=== PATIENT | female | born 1935 | race African-American/Black ===

== ENCOUNTER 2017-06-26 12:40 | Emergency (ER) | payer OTHER, MEDICAID ==
[2017-06-26] MEDS ORDERED: Diatrizoate Meglumine/Diatri 30 mL Sol PO ONE (12:41)
--- NOTE | 2017-06-26 12:52 | ED Physician Chart ---
ED Chief Complaint/HPI - Patient Information Date Seen:: 06/26/17 Time Seen:: 12:52 Chief Complaint:: J tube occlusion History of Present Illness:: 82 yo female was brought from SNF to ER for clotted J-tube. The patient was s/p cranitomy for non-ruptured cerebral aneurysm. ED Review of Systems - Review of Systems General/Constitutional: Fever (low grade) Skin: No bruising Head: No headache Eyes: No pain ENT: No nasal drainage Neck: No neck pain Cardio Vascular: No chest pain GI: Other (occluded J-tube) Musculoskeletal: No bone or joint pain Neurological: Weakness ED Past Medical History - Past Medical History Past Medical History: CVA/TIA (cerebral aneusysm), Other (Intracranial hemorrhage, right internal carotid artery aneurysm, encephylopathy, dysphagia, resp failure) Social History: Non Smoker, No Alcohol, No Drug Use Surgical History: other (tracheostomy, gastrostomy, [employer] shunt) Family Medical History - Family Member Mother History Unknown: Yes ED Physical Exam - Physical Examination Other Gen/Cons comments:: obtunded Other Head comments:: wearing helmet Skin: No ecchymosis ENMT: Nasal exam nl Neck: No nuchal rigidity Other Respiratory comments:: Thick secretion from the tracheostomy opening Cardio Vascular: RRR, No murmur, gallop, rubs, NL S1 S2 GI: Nondistended Other GI comments:: J tube clotted Other Extremities comments:: Spastic, decerebrate rigidity Other Neuro/Psych comments:: Barbinski upward ED Labs/Radiology/EKG Results - Radiology Results Results: Upper GI series: intraluminal confirmation of the J-tube ED Assessment - Assessment General Assessment: Clotted J-tube causing J-tube malfunction Assessment/Comments:: Cleaned the J-tube with saline and removed the clotted feed content. The J-tube became patent again Upper GI series confirmed the patency and intraluminal position of the J-tube D/c patient back to SNF F/u PCP ED Septic Shock - . Is Septic Shock (SBP<90, OR Lactate>4 mmol\L) present?: No ED Reassessment (Disposition) - Reassessment Reassessment Condition:: Improved - Patient Disposition Discharge/Transfer:: Alf Care - [facility] ED Discharge Plan - Patient Disposition Admit/Discharge/Transfer: Discharge/Transfered to SNF Instructions: Care of a Feeding Tube, [id number], Feeding Tube Use
--- NOTE | 2017-06-26 13:53 | Diagnostic Imaging Report ---
Upper GI with Gastrografin HISTORY: Feeding tube confirmation COMPARISON: None FINDINGS: Insurance Job Titles view demonstrates copious stool throughout the colon. Areas of fecal impaction are noted. Percutaneous feeding catheter is noted. Tubing material is seen along the right hemiabdomen possibly a shunt catheter. The second image demonstrates contrast opacification of the stomach and small bowel loops. IMPRESSION: Intraluminal confirmation of patient's percutaneous feeding tube. Please correlate clinically if this is a G or J-tube.
== END 2017-06-26 13:55 ==
LOC: ER 12:40
DX: K94.23 Gastrostomy malfunction (principal); Z86.73 Personal history of transient ischemic attack (TIA), and cerebral infarction without residual deficits
CPT/HCPCS: 99284; 43760; 74240; Z7610; Z7502

== ENCOUNTER 2017-10-13 03:45 | Inpatient (IN) | payer OTHER, MEDICAID ==
--- NOTE | 2017-10-13 04:25 | ED Physician Chart ---
ED Chief Complaint/HPI - Patient Information Date Seen:: 10/13/17 Time Seen:: 04:25 Chief Complaint:: non functional g= History of Present Illness:: 82 yr old female from [facility] with g-tube malfunction Allergies:: Allergies Allergy/AdvReac Type Severity Reaction Status Date / Time No Known Allergies Allergy Verified 10/13/17 03:55 Vitals:: Vital Signs - 8 hr 10/13/17 03:59 HR 86 O2 Sat % 100 Historian:: EMS, Medical Records ED Review of Systems - Review of Systems General/Constitutional: Fever (unable sec to obtundation), No fever (unable to get secondary to obtundation), No chills, No weight loss, No weakness, No diaphoresis, No edema, No loss of appetite Skin: No skin lesions, No rash, No bruising Head: No headache, No light-headedness Eyes: No loss of vision, No pain, No diplopia ENT: No earache, No nasal drainage, No sore throat, No tinnitus Neck: No neck pain, No swelling, No thyromegaly, No stiffness, No mass noted Cardio Vascular: No chest pain, No palpitations, No PND, No orthopnea, No edema Pulmonary: No SOB, No cough, No sputum, No wheezing GI: No nausea, No vomiting, No diarrhea, No pain, No melena, No hematochezia, No constipation, No hematemesis G/U: No dysuria, No frequency, No hematuria Musculoskeletal: No bone or joint pain, No back pain, No muscle pain Endocrine: No polyuria, No polydipsia Psychiatric: No prior psych history, No depression, No anxiety, No suicidal ideation Hematopoietic: No bruising, No lymphadenopathy Allergic/Immuno: No urticaria, No angioedema Neurological: No syncope, No focal symptoms, No weakness, No paresthesia, No headache, No seizure, No dizziness, No confusion, No vertigo ED Past Medical History - Past Medical History Past Medical History: CVA/TIA, ESRD, Dementia Surgical History: PEG/GTube, other (trach) Family Medical History - Family Member Mother History Unknown: Yes ED Physical Exam - Physical Examination Head: Atraumatic Eyes: Lids, conjuctiva normal Skin: Nl inspection, No rash ENMT: External ears, nose nl Respiratory: Nl effort/Exclusion, Clear to Auscultation Cardio Vascular: RRR, No murmur, gallop, rubs GI: No tenderness/rebounding/guarding Extremities: No tenderness or effusion Misc: Normal back ED Assessment - Assessment General Assessment: jtube malfunction ED Septic Shock - . Is Septic Shock (SBP<90, OR Lactate>4 mmol\L) present?: No - <6hrs of presentation: Vital Signs: Vital Signs - 8 hr 10/13/17 03:59 HR 86 O2 Sat % 100 ED Reassessment (Disposition) - Patient Disposition Discharge/Transfer:: Acute Care w/in this hosp Admitted to:: Telemetry
[2017-10-13 05:03] LABS: % BASOPHILS 1.7 % (0.0-2.0); % LYMPHOCYTES 11.5 % (20.0-50.0); % MONOCYTES 5.2 % (2.0-10.0); % NEUTROPHILS 80.6 % (40.0-80.0); ALB/GLOB RATIO 0.5 (1.0-1.8); ALBUMIN 2.6 gm/dL (3.7-5.3); ALKALINE PHOSPHATASE 66 U/L (34-104); ANION GAP 6.8 (7.0-16.0); BASOPHILE ABSOLUTE 0.2 Th/cumm (0-0.2); BILIRUBIN,TOTAL 0.5 mg/dL (0.3-1.0); BUN - UREA NITROGEN 11 mg/dL (7-25); CALCIUM SERUM 8.8 mg/dL (8.6-10.3); CARBON DIOXIDE 37.1 mEq/L (21.0-31.0); CHLORIDE 89 mEq/L (98-107); CREATININE - SERUM 0.4 mg/dL (0.6-1.2); EOSINOPHILE ABSOLUTE 0.1 Th/cmm (0.1-0.4); GLUCOSE 102 mg/dL (70-105); HEMATOCRIT 24.7 % (41.0-60); LYMPHOCYTE ABSOLUTE 1.2 Th/cmm (1.5-3.0); MEAN CELL VOLUME 78.9 fl (81-100); MEAN CORPUSCULAR HEMOGLOBIN 25.6 pg (27.0-31.0); MEAN CORPUSCULAR HGB CONC 32.5 pg (28.0-36.0); MEAN PLATELET VOLUME 7.7 fl; MONOCYTE ABSOLUTE 0.5 Th/cmm (0.3-1.0); NEUTROPHILE ABSOLUTE 8.1 Th/cmm (1.8-8.0); PLATELET COUNT 499 Th/cmm (150-400); POTASSIUM SERUM 3.9 mEq/L (3.5-5.1); RED BLOOD COUNT 3.14 Mil/cmm (3.80-5.20); RED CELL DISTRIBUTION WIDTH 20.9 % (11.5-20.0); SGOT 14 U/L (13-39); SGPT/ALT 10 U/L (7-52); SODIUM SERUM 129 mEq/L (136-145); TOTAL PROTEIN,SERUM 7.8 gm/dL (6.0-8.3); WHITE BLOOD COUNT 10.1 Th/cmm (4.8-10.8)
[2017-10-13] MEDS ORDERED: Diatrizoate Meglumine/Diatri 30 mL Sol ONE (05:06)
[2017-10-13] MEDS ORDERED: Diatrizoate Meglumine/Diatri 30 mL Sol PO ONE ×2 (05:06→14:10)
[2017-10-13 06:26] VITALS: BP 177/93
--- NOTE | 2017-10-13 07:48 | Diagnostic Imaging Report ---
CHEST X-RAY: AP view INDICATION: Shortness of breath COMPARISON: None FINDINGS: Tracheostomy tube is noted. There appears to be a shunt catheter. Diffuse pulmonary infiltrates are seen with small left effusion. Right lower hemithorax linear density is noted. No pneumothorax. Heart size is borderline prominent. Atherosclerosis is noted. Degenerative changes of the spine are noted. IMPRESSION: Diffuse pulmonary infiltrates with small left effusion. Findings may be due to CHF and pneumonia. Clinical correlation recommended. Right lower hemithorax linear density. This may represent external material overlying the patient. A right chest tube would be less likely but cannot be excluded. Please correlate with clinical findings.
--- NOTE | 2017-10-13 07:50 | Diagnostic Imaging Report ---
KUB single view HISTORY: Feeding tube malfunction COMPARISON: Chest x-ray the same day FINDINGS: Single KUB without priors demonstrates contrast opacification of the stomach. Distal fecal impaction is noted. The remaining bowel gas pattern is nonspecific. There appears to be shunt catheter with tip terminating along the left upper quadrant. Degenerative changes of the spine and pelvis are noted. IMPRESSION: Feeding tube in the stomach. Note exam is limited as only a single limited view was obtained. Distal fecal impaction. The remaining bowel gas pattern is nonspecific Shunt catheter noted.
[2017-10-13] MEDS ORDERED: Dextrose 50% 50 mL Abboject IVP PRN (08:05)
[2017-10-13] MEDS ORDERED: Morphine Sulfate 2 mg/mL 1mL Syr IM PRN ×2 (09:01→09:03)
[2017-10-13] MEDS ORDERED: Sodium Chloride 0.9% 1,000 ML IV ONE (09:33)
[2017-10-13] MEDS: Morphine Sulfate 4 mg/mL 1mL Syr IVP PRN ×2 (10:10→21:50)
[2017-10-13] MEDS: Sodium Chloride 0.9% 1,000 ML IV SCH (10:35)
[2017-10-13] MEDS ORDERED: Albuterol Nebulizer 2.5mg/3mL HHN PRN (13:46)
--- NOTE | 2017-10-13 14:56 | Consultation ---
Consult Note - Consult Note Service Date: 10/13/17 Referring Physician: Doug Soria Consult Note: PHYSICIAN Consultation Note: Date of Admission: 10/13/17 Purpose of Consultation: Pneumonia. Chief Complaint: Patient ELOY GONZALES was admitted to location Intensive Care Unit with HYPONATREMIA,J TUBE PLACEMENT. History of Present Illness: 82 -year-old with a past medical history of intracranial hemorrhage, right-sided craniotomy and resection of the right side of the brain, removal of scalp bone of right-sided, vent dependent respiratory failure, vegetative state, admitted to the hospital for hyponatremia and G-tube placement. J-tube was placed by IR. On initial evaluation, her temperature is 100.1F and WBC count was 10,100. Patient was found to have heavy yellow thick endotracheal secretion. Chest x-ray showed pneumonia. Vancomycin and Zosyn was started and ID consult was called for further antibiotic management patient is unable to give any history. Past Medical History: CVA/TIA, Dementia, G-tube placement, tracheostomy. Vent dependent respiratory failure. Allergies Allergy/AdvReac Type Severity Reaction Status Date / Time No Known Allergies Allergy Verified 10/13/17 03:55 Vital Signs Temp 97.9 F 10/13/17 13:00 Pulse 81 10/13/17 13:44 Resp 22 10/13/17 13:00 BP 111/57 10/13/17 13:00 Pulse Ox 100 10/13/17 14:00 Intake & Output 10/12/17 10/13/17 10/13/17 18:59 06:59 18:59 Intake Total 300 Balance 300 Weight (lbs) 50.349 kg Intake: Intake, IV Amount 300 Piperacillin Sodium/ 50 Tazobact 3.375 gm In Sodium Chloride 0.9% 50 ml @ 100 mls/hr IV Q8HR MYLES Rx#:[id number] Vancomycin HCl 1 gm In 250 Sodium Chloride 0.9% 250 ml @ 165 mls/hr IV Q24H MYLES Rx#:[id number] Other: Weight Source Estimated Laboratory Results - last 24 hr 10/13/17 10/13/17 10/13/17 04:35 04:35 09:35 WBC 10.1 RBC 3.14 L Hgb 8.0 L Hct 24.7 L MCV 78.9 L MCH 25.6 L MCHC Differential 32.5 RDW 20.9 H Plt Count 499 H MPV 7.7 Neutrophils % 80.6 H Lymphocytes % 11.5 L Monocytes % 5.2 Eosinophils % 1.0 Basophils % 1.7 Sodium 129 L Potassium 3.9 Chloride 89 L Carbon Dioxide 37.1 H Anion Gap 6.8 L BUN 11 Creatinine 0.4 L Est GFR ( Amer) TNP Est GFR (Non-Af Amer) TNP BUN/Creatinine Ratio 27.5 Glucose 102 Whole Bld Lactic Acid Calcium 8.8 Total Bilirubin 0.5 AST 14 ALT 10 Alkaline Phosphatase 66 Total Protein 7.8 Albumin 2.6 L Globulin 5.2 Albumin/Globulin Ratio 0.5 L Blood Type O POSITIVE Antibody Screen NEGATIVE Crossmatch See Detail 10/13/17 09:35 WBC RBC Hgb Hct MCV MCH MCHC Differential RDW Plt Count MPV Neutrophils % Lymphocytes % Monocytes % Eosinophils % Basophils % Sodium Potassium Chloride Carbon Dioxide Anion Gap BUN Creatinine Est GFR ( Amer) Est GFR (Non-Af Amer) BUN/Creatinine Ratio Glucose Whole Bld Lactic Acid 1.49 Calcium Total Bilirubin AST ALT Alkaline Phosphatase Total Protein Albumin Globulin Albumin/Globulin Ratio Blood Type Antibody Screen Crossmatch Home Medication Medication Instructions Recorded Type Acetaminophen [Tylenol] 650 mg GT Q4HR PRN 06/26/17 History Albuterol Nebulizer 2.5mg/3mL 2.5 mg HHN Q3H PRN 06/26/17 History [Albuterol Neb UD*] Albuterol Nebulizer 2.5mg/3mL 2.5 mg IH Q6HR 06/26/17 History [Albuterol Neb UD*] Amino Acids/Protein Hydrolys 30 ml GT DAILY 06/26/17 History [Pro-Stat Sugar Free Awc 887 ml] Chlorhexidine Gluconate 0.12% 15 ml MM BID 06/26/17 History [Peridex] Clonidine HCl 0.2 mg GT Q4H PRN 06/26/17 History Ferrous Sulfate 7.5 ml GT DAILY 06/26/17 History Levetiracetam 250 mg GT Q12H 06/26/17 History Lorazepam [Ativan] 0.5 mg GT Q6H PRN 06/26/17 History Morphine Sulfate 15 mg GT Q6H PRN 06/26/17 History Multivit-Minerals/Ferrous Gluc 30 mg GT DAILY 10/13/17 History [Multivitamin-Mineral Liquid] Vit C/Ascorbate Ca/Ascorb Sod 5 ml PO DAILY 10/13/17 History [Vitamin C 500 mg/15 ml Liquid] Current Medications Generic Name Dose Route Start Last Admin Trade Name Freq PRN Reason Stop Dose Admin Acetaminophen 650 mg 10/13/17 13:46 Tylenol 650mg/20.3ml Suspension GT 12/12/17 13:45 Q4HR PRN Mild Pain or Fever >101 Albuterol Sulfate 2.5 mg 10/13/17 13:46 Albuterol 2.5mg/3ml Neb Ud N 12/12/17 13:45 Q3H PRN SOB/WHEEZING/RESPIRATORY DISTR Albuterol Sulfate 2.5 mg 10/13/17 19:00 [facility] 18:59 Q6HRT MYLES Ascorbic Acid 500 mg 10/14/17 09:00 Vitamin C PO 12/13/17 08:59 DAILY MYLES Chlorhexidine Gluconate 15 ml 10/13/17 17:00 Peridex MM 12/12/17 16:59 BID MYLES Dextrose 50 ml 10/13/17 08:05 D50w IVP 12/12/17 08:04 PRN PRN B.S > 60 MG/DL Enalaprilat 1.25 mg 10/13/17 08:59 10/13/17 09:30 Vasotec IVP 12/12/17 08:58 1.25 mg Q4HR PRN Administration SBP ABOVE 160 MMHG Ferrous Sulfate 450 mg 10/14/17 09:00 Iron GT 12/13/17 08:59 DAILY MYLES Sodium Chloride 1,000 mls @ 125 mls/hr 10/13/17 08:00 10/13/17 10:35 Nacl 0.9% IV 12/12/17 07:59 125 mls/hr .Q8H MYLES Administration Vancomycin HCl 1 gm/ Sodium 250 mls @ 165 mls/hr 10/13/17 08:00 10/13/17 10: 20 Chloride IV 12/12/17 07:59 Infused Q24H MYLES Infusion Piperacillin Sod/Tazobactam 50 mls @ 100 mls/hr 10/13/17 08:02 10/13/17 12:19 Sod 3.375 gm/ Sodium Chloride IV 12/12/17 08:01 100 mls/hr Q8HR MYLES Administration Levetiracetam 250 mg 10/13/17 14:00 Keppra PO 12/12/17 13:59 Q12H MYLES Lorazepam 0.5 mg 10/13/17 13:46 Ativan GT 12/12/17 13:45 Q6H PRN Anxiety Protocol Miscellaneous 1 ea 10/13/17 08:01 Vancomycin Iv Per Pharmacy 12/12/17 08:00 PRN PRN PROTOCOL Morphine Sulfate 1 mg 10/13/17 09:35 Morphine IVP 12/12/17 09:34 Q4HR PRN Pain (Moderate) Morphine Sulfate 2 mg 10/13/17 09:36 10/13/17 10:10 Morphine IVP 12/12/17 09:35 2 mg Q4HR PRN Administration Pain (Severe) Morphine Sulfate 15 mg 10/13/17 13:46 Morphine Ir GT 12/12/17 13:45 Q6H PRN MOD/SEVERE PAIN Review of Systems: A 12 point ROS was reviewed with the pertinent positive and negatives noted in the HPI. Social History Smoking Status Never smoker Drug Use No Alcohol Use No Family Medical History Family Medical History Start: 10/13/17 05: 27 Freq: ONCE Status: Active Protocol: Document 10/13/17 05:27 [email or web address] (Rec: 10/13/17 07:34 [email or web address] [id number]) Family Medical History Mother History Unknown Yes Physical Exam: General: Cachectic not in acute distress on ventilator. HEENT: Head: Right-sided craniectomy and abscess of the scalp on. Oral cavity: Moist, pink tongue. Eyes: Pallor. Neck: Trach site is clear Cardio: S1 and S2 within normal metabolism. Respiratory: Vesicular breath sound. Abdominal: Soft, nontender nondistended bowel sounds present G-tube site is clear. Genital/Urinary: Deferred. Extremities: No sinus no clubbing no edema. Severe flexion contracture. Neurological: Unresponsive. Assessment: 1. Pneumonia. 2. G-tube malfunction. 3. New J-tube placement. 4. Vent dependent respiratory failure. 5. Vegetative status. Plan: Continue vancomycin and Zosyn. Sepsis workup. Thank you Dr. Soria for involving me in taking care of this patient Signed, Earl Guzman M.D. [id number]
--- NOTE | 2017-10-13 15:03 | Diagnostic Imaging Report ---
Upper GI with Gastrografin HISTORY: G-tube confirmation COMPARISON: KUB on 10/13/2017 FINDINGS: Log Cut Off Sawyer view demonstrates oral contrast from previous procedures throughout the bowel. Shunt catheter is seen. A percutaneous feeding tube is noted. The second image demonstrates contrast opacification of the stomach and small bowel loops. IMPRESSION: Intraluminal confirmation of patient's percutaneous gastric feeding tube.
[2017-10-13] MEDS ORDERED: Chlorhexidine Gluconate 0.12% 15mL Mouthwash MM SCH (17:00)
[2017-10-13] MEDS: Albuterol Nebulizer 2.5mg/3mL HHN SCH ×2 (19:00→22:04)
[2017-10-13] MEDS ORDERED: Albuterol Nebulizer 2.5mg/3mL HHN SCH (19:00)
--- NOTE | 2017-10-13 20:34 | Operative Report ---
DATE OF SURGERY: 10/13/2017 PROCEDURE: Change of G-tube. INDICATION FOR PROCEDURE: Malfunctioning G-tube. PREOPERATIVE DIAGNOSIS: Malfunctioning G-tube. POSTOPERATIVE DIAGNOSES: Malfunctioning G-tube status post change. DESCRIPTION OF PROCEDURE: The patient was lying on his back. The old Zaragoza catheter was deflated, pulled out of the patient's abdomen and new replacement one size 18 was tested and tried to insert it, again it would not go easily, so then the Zaragoza catheter was inserted again, and then pulled out and then a new one was inserted with a little bit difficulty. Balloon was inflated, secured in place. RECOMMENDATIONS: Check KUB with Gastrografin and then start feeding. Thank you, Dr. Soria, for allowing me to participate in the care of the patient. If you have any further questions, please let me know. JOB# [id number]
[2017-10-13] MEDS: Chlorhexidine Gluconate 0.12% 15mL Mouthwash MM SCH (21:04)
--- NOTE | 2017-10-13 22:13 | History and Physical ---
History of Present Illness - HPI Chief Complaint: gt malfunction . HPI: 82 -year-old female who is a resident of [facility] admitted to the ICU. Subacute charge nurse noted patient gt was not functioning. Patient had a xray in ER and was found to have pneumonia. Patient is nonverbal. Vital Signs: Last Vital Signs Temp 98.2 F 10/13/17 21:00 Pulse 70 10/13/17 22:04 Resp 33 10/13/17 21:00 BP 178/90 10/13/17 21:00 Pulse Ox 99 10/13/17 22:04 Past Medical History Other History: cva, respiratory failure - Past Surgical History Past Surgical History: Other ( intracranial hemorrhage, right-sided craniotomy and resection of the right side of the brain, removal of scalp bone of right) Family Medical History - Family Member Mother History Unknown: Yes Social History Smoke: No Alcohol: None Drugs: None Lives: [facility] - Medications Home Medications: Home Medication Medication Instructions Recorded Type Acetaminophen [Tylenol] 650 mg GT Q4HR PRN 06/26/17 History Albuterol Nebulizer 2.5mg/3mL 2.5 mg HHN Q3H PRN 06/26/17 History [Albuterol Neb UD*] Albuterol Nebulizer 2.5mg/3mL 2.5 mg IH Q6HR 06/26/17 History [Albuterol Neb UD*] Amino Acids/Protein Hydrolys 30 ml GT DAILY 06/26/17 History [Pro-Stat Sugar Free Awc 887 ml] Chlorhexidine Gluconate 0.12% 15 ml MM BID 06/26/17 History [Peridex] Clonidine HCl 0.2 mg GT Q4H PRN 06/26/17 History Ferrous Sulfate 7.5 ml GT DAILY 06/26/17 History Levetiracetam 250 mg GT Q12H 06/26/17 History Lorazepam [Ativan] 0.5 mg GT Q6H PRN 06/26/17 History Morphine Sulfate 15 mg GT Q6H PRN 06/26/17 History Multivit-Minerals/Ferrous Gluc 30 mg GT DAILY 10/13/17 History [Multivitamin-Mineral Liquid] Vit C/Ascorbate Ca/Ascorb Sod 5 ml PO DAILY 10/13/17 History [Vitamin C 500 mg/15 ml Liquid] - Allergies Allergies/Adverse Reactions: Allergies Allergy/AdvReac Type Severity Reaction Status Date / Time No Known Allergies Allergy Verified 10/13/17 03:55 Review of Systems - Review of Systems Constitutional: Report: No Significant Eyes: Report: No Significant Respiratory: Report: Cough Cardiovascular: Report: No Significant Neurological: Report: Weakness Physical Exam - Physical Exam HEENT: Report: Ears Nose Throat within normal limits Neck: Report: Tracheostomy site noted to be clean Cardiovascular Systems: Report: Regular, Rate and Rhythm Respiratory: Report: Rhonchi Abdomen: Report: Non-tender to palpation Skin: Report: Warm, Dry Neuro/Psych: Report: Weakness or sensory loss noted. - Lab Results All Lab Results last 24 hours: Laboratory Results - last 24 hr 10/13/17 10/13/17 10/13/17 04:35 04:35 09:35 WBC 10.1 RBC 3.14 L Hgb 8.0 L Hct 24.7 L MCV 78.9 L MCH 25.6 L MCHC Differential 32.5 RDW 20.9 H Plt Count 499 H MPV 7.7 Neutrophils % 80.6 H Lymphocytes % 11.5 L Monocytes % 5.2 Eosinophils % 1.0 Basophils % 1.7 Sodium 129 L Potassium 3.9 Chloride 89 L Carbon Dioxide 37.1 H Anion Gap 6.8 L BUN 11 Creatinine 0.4 L Est GFR ( Amer) TNP Est GFR (Non-Af Amer) TNP BUN/Creatinine Ratio 27.5 Glucose 102 POC Glucose Whole Bld Lactic Acid Calcium 8.8 Total Bilirubin 0.5 AST 14 ALT 10 Alkaline Phosphatase 66 Total Protein 7.8 Albumin 2.6 L Globulin 5.2 Albumin/Globulin Ratio 0.5 L Blood Type O POSITIVE Antibody Screen NEGATIVE Crossmatch See Detail 10/13/17 10/13/17 09:35 09:54 WBC RBC Hgb Hct MCV MCH MCHC Differential RDW Plt Count MPV Neutrophils % Lymphocytes % Monocytes % Eosinophils % Basophils % Sodium Potassium Chloride Carbon Dioxide Anion Gap BUN Creatinine Est GFR ( Amer) Est GFR (Non-Af Amer) BUN/Creatinine Ratio Glucose POC Glucose 106 H Whole Bld Lactic Acid 1.49 Calcium Total Bilirubin AST ALT Alkaline Phosphatase Total Protein Albumin Globulin Albumin/Globulin Ratio Blood Type Antibody Screen Crossmatch - Assessment Assessment: gt malfunction hx cvs vdrf respiratory failure pvs - Plan Plan: gi consult sputum culture id consult vent support pulmo consult as per order sheet
[2017-10-14] MEDS: Sodium Chloride 0.9% 1,000 ML IV SCH ×4 (01:56→20:46)
[2017-10-14] MEDS: Albuterol Nebulizer 2.5mg/3mL HHN SCH ×6 (02:01→23:00)
[2017-10-14 04:41] LABS: LYMPHOCYTE ABSOLUTE 1.8 Th/cmm (1.5-3.0); MONOCYTE ABSOLUTE 0.7 Th/cmm (0.3-1.0)
[2017-10-14 05:02] LABS: % BASOPHILS 0.5 % (0.0-2.0); % EOSINOPHILS 0.5 % (0.0-5.0); % MONOCYTES 7.3 % (2.0-10.0); % NEUTROPHILS 73.7 % (40.0-80.0); HEMATOCRIT 24.3 % (41.0-60); MEAN CELL VOLUME 79.6 fl (81-100); MEAN CORPUSCULAR HEMOGLOBIN 25.9 pg (27.0-31.0); MEAN CORPUSCULAR HGB CONC 32.5 pg (28.0-36.0); MEAN PLATELET VOLUME 7.6 fl; NEUTROPHILE ABSOLUTE 7.3 Th/cmm (1.8-8.0); PLATELET COUNT 541 Th/cmm (150-400); RED BLOOD COUNT 3.05 Mil/cmm (3.80-5.20); RED CELL DISTRIBUTION WIDTH 20.7 % (11.5-20.0); WHITE BLOOD COUNT 9.8 Th/cmm (4.8-10.8)
[2017-10-14 05:08] LABS: ALB/GLOB RATIO 0.5 (1.0-1.8); ALBUMIN 2.5 gm/dL (3.7-5.3); ALKALINE PHOSPHATASE 91 U/L (34-104); ANION GAP 10.8 (7.0-16.0); BILIRUBIN,TOTAL 0.6 mg/dL (0.3-1.0); BUN - UREA NITROGEN 15 mg/dL (7-25); CALCIUM SERUM 8.5 mg/dL (8.6-10.3); CARBON DIOXIDE 28.4 mEq/L (21.0-31.0); CHLORIDE 95 mEq/L (98-107); CREATININE - SERUM 0.6 mg/dL (0.6-1.2); GLUCOSE 111 mg/dL (70-105); POTASSIUM SERUM 3.2 mEq/L (3.5-5.1); SGOT 15 U/L (13-39); SGPT/ALT 9 U/L (7-52); SODIUM SERUM 131 mEq/L (136-145); TOTAL PROTEIN,SERUM 7.7 gm/dL (6.0-8.3)
[2017-10-14 05:09] LABS: HEMOGLOBIN 7.9 gm/dL (12-16)
[2017-10-14] MEDS: Chlorhexidine Gluconate 0.12% 15mL Mouthwash MM SCH ×2 (08:00→20:47)
--- NOTE | 2017-10-14 08:24 | Diagnostic Imaging Report ---
Portable chest x-ray HISTORY: Shortness of breath Compared with the prior exam of October 13, 2017, hazy infiltrate remains the left lung. Generalized accentuation of interstitial markings in the right lung. Density seen in the left lower hemithorax with obscuration of the left hemidiaphragm. Changes suggest a pleural effusion. IMPRESSION: 1. No significant change in the pulmonary status since October 13, 2017.
[2017-10-14] MEDS ORDERED: Non-Formulary Item 1 EA (Amino Acids/Protein Hydrolys [Pro-Stat Awc Liquid] 30 ML) GT SCH (09:00)
--- NOTE | 2017-10-14 09:19 | Infectious Disease Prog Note ---
Infectious Disease Subjective - Review of Systems Service Date: 10/14/17 Subjective: There is no new change, no fever. Infectious Disease Objective - Results Result Diagrams: 10/14/17 04:20 10/14/17 04:20 Recent Labs: Laboratory Last Values WBC 9.8 Th/cmm (4.8-10.8) 10/14/17 04:20 RBC 3.05 Mil/cmm (3.80-5.20) L 10/14/17 04:20 Hgb 7.9 gm/dL (12-16) L* 10/14/17 04:20 Hct 24.3 % (41.0-60) L 10/14/17 04:20 MCV 79.6 fl (81-100) L 10/14/17 04:20 MCH 25.9 pg (27.0-31.0) L 10/14/17 04:20 MCHC Differential 32.5 pg (28.0-36.0) 10/14/17 04:20 RDW 20.7 % (11.5-20.0) H 10/14/17 04:20 Plt Count 541 Th/cmm (150-400) H 10/14/17 04:20 MPV 7.6 fl 10/14/17 04:20 Neutrophils % 73.7 % (40.0-80.0) 10/14/17 04:20 Lymphocytes % 18.0 % (20.0-50.0) L 10/14/17 04:20 Monocytes % 7.3 % (2.0-10.0) 10/14/17 04:20 Eosinophils % 0.5 % (0.0-5.0) 10/14/17 04:20 Basophils % 0.5 % (0.0-2.0) 10/14/17 04:20 Sodium 131 mEq/L (136-145) L 10/14/17 04:20 Potassium 3.2 mEq/L (3.5-5.1) L 10/14/17 04:20 Chloride 95 mEq/L (98-107) L 10/14/17 04:20 Carbon Dioxide 28.4 mEq/L (21.0-31.0) 10/14/17 04:20 Anion Gap 10.8 (7.0-16.0) 10/14/17 04:20 BUN 15 mg/dL (7-25) 10/14/17 04:20 Creatinine 0.6 mg/dL (0.6-1.2) 10/14/17 04:20 Est GFR ( Amer) TNP 10/14/17 04:20 Est GFR (Non-Af Amer) TNP 10/14/17 04:20 BUN/Creatinine Ratio 25.0 10/14/17 04:20 Glucose 111 mg/dL (70-105) H 10/14/17 04:20 POC Glucose 106 MG/DL (70 - 105) H 10/13/17 09:54 Whole Bld Lactic Acid 1.49 mmol/L (0.60-1.99) 10/13/17 09:35 Calcium 8.5 mg/dL (8.6-10.3) L 10/14/17 04:20 Total Bilirubin 0.6 mg/dL (0.3-1.0) 10/14/17 04:20 AST 15 U/L (13-39) 10/14/17 04:20 ALT 9 U/L (7-52) 10/14/17 04:20 Alkaline Phosphatase 91 U/L (34-104) 10/14/17 04:20 Total Protein 7.7 gm/dL (6.0-8.3) 10/14/17 04:20 Albumin 2.5 gm/dL (3.7-5.3) L 10/14/17 04:20 Globulin 5.2 gm/dL 10/14/17 04:20 Albumin/Globulin Ratio 0.5 (1.0-1.8) L 10/14/17 04:20 Blood Type O POSITIVE 10/13/17 09:35 Antibody Screen NEGATIVE 10/13/17 09:35 Crossmatch See Detail 10/13/17 09:35 - Physical Exam Vitals and I&O: Vital Signs Temp 98.5 F 10/14/17 07:00 Pulse 99 10/14/17 07:51 Resp 28 10/14/17 07:00 BP 154/81 10/14/17 07:00 Pulse Ox 100 10/14/17 07:51 Intake & Output 10/13/17 10/14/17 10/14/17 18:59 06:59 18:59 Intake Total 1650 1602.083 Balance 1650 1602.083 Weight (lbs) 50.576 kg 50.802 kg Intake: Intake, IV Amount 1350 1102.083 Piperacillin Sodium/ 100 100 Tazobact 3.375 gm In Sodium Chloride 0.9% 50 ml @ 100 mls/hr IV Q8HR [facility] Rx#:[id number] Sodium Chloride 0.9% 1, 1002.083 000 ml @ 125 mls/hr IV . Q8H [facility] Rx#:[id number] Vancomycin HCl 1 gm In 250 Sodium Chloride 0.9% 250 ml @ 165 mls/hr IV Q24H [facility] Rx#:[id number] Tube Feeding 50 400 Other 250 100 Other: # Voids 4 3 # Bowel Movements 0 Weight Source Bedscale Bedscale Active Medications: Current Medications Acetaminophen (Tylenol 650mg/20.3ml Suspension) 650 mg GT Q4HR PRN PRN Reason: Mild Pain or Fever >101 Stop: 12/12/17 13:45 Last Admin: 10/13/17 17:59 Dose: 650 mg Albuterol Sulfate (Albuterol 2.5mg/3ml Neb Ud) 2.5 mg HHN Q3H PRN PRN Reason: SOB/WHEEZING/RESPIRATORY DISTR Stop: 12/12/17 13:45 Albuterol Sulfate (Albuterol 2.5mg/3ml Neb Ud) 2.5 mg HHN Q4HRT [facility] Stop: 12/12/17 18:59 Last Admin: 10/14/17 07:49 Dose: 2.5 mg Ascorbic Acid (Vitamin C) 500 mg PO DAILY [facility] Stop: 12/13/17 08:59 Chlorhexidine Gluconate (Peridex) 15 ml MM 0800,1999 [facility] Stop: 12/12/17 19:59 Last Admin: 10/13/17 21:04 Dose: 15 ml Dextrose (D50w) 50 ml IVP PRN PRN PRN Reason: B.S > 60 MG/DL Stop: 12/12/17 08:04 Enalaprilat (Vasotec) 1.25 mg IVP Q4HR PRN PRN Reason: SBP ABOVE 160 MMHG Stop: 12/12/17 08:58 Last Admin: 10/13/17 09:30 Dose: 1.25 mg Ferrous Sulfate (Iron) 450 mg GT DAILY [facility] Stop: 12/13/17 08:59 Sodium Chloride (Nacl 0.9%) 1,000 mls @ 125 mls/hr IV .Q8H [facility] Stop: 12/12/17 07:59 Last Admin: 10/14/17 01:57 Dose: 125 mls/hr Vancomycin HCl 1 gm/ Sodium (Chloride) 250 mls @ 165 mls/hr IV Q24H [facility] Stop: 12/12/17 07:59 Last Infusion: 10/13/17 10:20 Dose: Infused Piperacillin Sod/Tazobactam (Sod 3.375 gm/ Sodium Chloride) 50 mls @ 100 mls/ hr IV Q8HR [facility] Stop: 12/12/17 08:01 Last Infusion: 10/14/17 06:00 Dose: Infused Potassium Chloride (Potassium Chloride) 20 meq in 100 mls @ 50 mls/hr IV Q2H [facility] Stop: 10/14/17 11:59 Potassium Chloride (Potassium Chloride) 20 meq in 100 mls @ 50 mls/hr IV Q2H [facility] Stop: 10/14/17 12:29 Levetiracetam (Keppra) 250 mg PO Q12H [facility] Stop: 12/12/17 13:59 Last Admin: 10/14/17 01:57 Dose: 250 mg Lorazepam (Ativan) 0.5 mg GT Q6H PRN; Protocol PRN Reason: Anxiety Stop: 12/12/17 13:45 Miscellaneous (Vancomycin Iv Per Pharmacy) 1 ea MC PRN PRN PRN Reason: PROTOCOL Stop: 12/12/17 08:00 Morphine Sulfate (Morphine) 1 mg IVP Q4HR PRN PRN Reason: Pain (Moderate) Stop: 12/12/17 09:34 Last Admin: 10/13/17 21:50 Dose: 1 mg Morphine Sulfate (Morphine) 2 mg IVP Q4HR PRN PRN Reason: Pain (Severe) Stop: 12/12/17 09:35 Last Admin: 10/13/17 10:10 Dose: 2 mg Morphine Sulfate (Morphine Ir) 15 mg GT Q6H PRN PRN Reason: MOD/SEVERE PAIN Stop: 12/12/17 13:45 General: no acute distress, well developed, well nourished HEENT: PERRLA, EOMI, other (craniotomy and deoressed scalp on the right.) Neck: supple, tracheostomy, no thyromegaly Cardiovascular: S1S2, regular Lungs: clear to auscultation bilaterally, clear to percussion Abdomen: soft, other (J tube ok), no tender, no distended, no rebound Extremities: no cyanosis, no clubbing, no edema Skin: intact - Procedures Procedures: Procedures Procedure Code Date RESPIRATORY VENTILATION, LESS THAN 24 CONSECUTIVE HOURS [id number] 10/13/17 Infectious Disease Assmt/Plan - Assessment Assessment: 1. Pneumonia. 2. G-tube malfunction. 3. New J-tube placement. 4. Vent dependent respiratory failure. 5. Vegetative status. - Plan Plan: [facility] Nutritional Asmnt/Malnutr-PDOC - Dietary Evaluation Malnutrition Findings (Please click <Entered> for more info): Nutritional Asmnt/Malnutrition Start: 10/13/17 15: 20 Text: Status: Complete Freq: Protocol: Document 10/13/17 15:21 [email or web address] (Rec: 10/13/17 15:42 [id number] [id number]) Nutritional Asmnt/Malnutrition Patient General Information Nutritional Screening High Risk Diagnosis hyponatremia, J tube placement Pertinent Medical Hx/Surgical Hx CVA/TIA, ESRD, dementia, PEG/ Gtube, trach Subjective Information Pt seen on vent via trach. Per RN, no nutrition plan at this time from MD. pt is on NPO status. Current Diet Order/ Nutrition Support no diet order. Pertinent Medications vit C, Iron, piperacillin, nacl 0.9%, vancomycin Pertinent Labs 6/5 Na 129, cl 89, Cr 0.4 Nutritional Hx/Data Height 1.6 m Height (Calculated Centimeters) 160.0 Current Weight (lbs) 50.349 kg Weight (Calculated Kilograms) 50.3 Weight (Calculated Grams) 88726.8 Bath Body Weight 115 Body Mass Index (BMI) 19.6 Weight Status Approriate GI Symptoms GI Symptoms None Last BM not indicated Difficult in: None Skin Integrity/Comment: intact Estimated Nutritional Goals BEE in Kcals: Using Current wt Calories/Kcals/Kg 25-30 Kcals Calculated 0751-9096 Protein: Using Current wt Protein g/k-1.2 Protein Calculated 50-60 Fluid: ml 1250-1500ml (1ml/kcal) Nutritional Problem 2. Problem Problem inadequate energy intake Etiology J tube malfunction Signs/Symptoms: nutrition support not initiated 1. Problem Problem altered nutrition labs Etiology electrolytes imbalance Signs/Symptoms: Na 129 Malnutrition Alert Is there a minimum of two criteria No selected? Query Text:Check all the applicable criteria. A minimum of two criteria are recommended for diagnosis of either severe or non-severe malnutrition. Malnutrition Related to Morbid Obesity Malnutrition related to morbid obesity No Intervention/Recommendation Comments 1. Monitor NPO status 2. If TF needed, recommend Fibersource HN 55m/hr x 20hr. This will provide 1320kcal, 59g protein, 891ml free water. 3. Monitor wt, skin integrity and labs 4. F/U as high risk in 2 days, 6/7 Expected Outcomes/Goals Expected Outcomes/Goals 1. Pt to meet at least 75% of nutritional needs. 2. Wt stability, skin to remain intact, labs to approach WNL.
[2017-10-14] MEDS: Ferrous Sulfate 300 MG/5 ML UDC GT SCH (09:41)
[2017-10-14] MEDS: Multivitamin w/ Minerals Tab GT SCH (09:41)
[2017-10-14] MEDS: KCL 20mEq/100mL Premix 20 MEQ/100 ML PIGGYBACK IV SCH ×3 (09:49→15:17)
[2017-10-14] MEDS ORDERED: VTE Chemical Prophylaxis Screen/Admission MC PRN (10:45)
--- NOTE | 2017-10-14 11:24 | Consultation ---
DATE OF CONSULTATION: 10/13/2017 REASON FOR CONSULTATION: Dysphagia, malfunctioning G-tube. HISTORY OF PRESENT ILLNESS: This consult was obtained through the request of Dr. Soria for this 82-year-old with multiple medical problems, now with malfunctioning feeding tube. Apparently, the patient is an 82-year-old, lives in a assisted, has a G-tube malfunction, some notes said G-tube, some notes said J-tube. The patient came to the ER. She has a Zaragoza catheter. We do not know what the original tube is. The patient is an unfortunate able to provide any history. PAST MEDICAL HISTORY: CVA, end-stage renal disease, dementia, seems she has traumatic head injury on the right side and she also has tracheostomy. PAST SURGICAL HISTORY: She had a craniotomy. She has tracheostomy, has a G-tube. SOCIAL HISTORY: At this time, the patient is a nonsmoker, nonalcoholic, non-IV drug abuser. FAMILY HISTORY: Unobtainable, noncontributory. REVIEW OF SYSTEMS: Unobtainable. ALLERGIES: No known drug allergies. MEDICATIONS: The patient is on Tylenol, albuterol, vitamin C, Peridex, Vasotec, iron, Keppra, Ativan, vancomycin, morphine, and Zosyn. PHYSICAL EXAMINATION: GENERAL: The patient has some response, nonverbal. VITAL SIGNS: Blood pressure is 111/57, heart rate 81, respiratory rate 22, and temperature is 97.9. HEAD AND NECK: There is a craniotomy. There is a scar with a concave deformity of the head on the right side, which is traumatic. There is a tracheostomy tube. ____. CHEST: Good air entry. LUNGS: Showed few rhonchi. CARDIOVASCULAR: Regular rate and rhythm. No murmur or gallop. ABDOMEN: Soft. There is scar in the midline. There is a Zaragoza catheter in the G-tube site. EXTREMITIES: Lower extremities, no edema. CENTRAL NERVOUS SYSTEM: Unable to evaluate. LABORATORY DATA: White count 10.1, H and H are 8 and 24.7 with platelets of 499. Liver enzymes are normal. Albumin 2.6. KUB done in the morning showed feeding tube in stomach and fecal impaction. IMPRESSION: An 82-year-old with malfunctioning G-tube. ASSESSMENT AND PLAN: Malfunctioning G-tube, this need to be replaced. Zaragoza catheter with a deflated, pulled out, and new replacement one was inserted through the same hole. It was a little bit time since the Zaragoza was ____. So we will check KUB with Gastrografin for placement and if that is in position, we will start feeding problems. For his dysphagia, we will resume tube feeding. Other medical problems such as hypertension, dementia, CVA, etc., as per Dr. Soria. Thank you, Dr. Soria for allowing me to participate in the care of the patient. If you have any further questions, please let me know. JOB# [id number]
[2017-10-14] MEDS ORDERED: Probiotic Screen MC PRN (12:04)
[2017-10-14] MEDS: Lactobacillus Rhamnosus GG 15 Billion CFU CAP.SPRINK PO SCH (13:45)
--- NOTE | 2017-10-14 14:43 | GI Progress Note ---
Subjective - Review of Systems Service Date: 10/14/17 Subjective: Tolerating G tube feeding at 50cc/hr Objective - Results Result Diagrams: 10/14/17 04:20 10/14/17 04:20 Recent Labs: Laboratory Last Values WBC 9.8 Th/cmm (4.8-10.8) 10/14/17 04:20 RBC 3.05 Mil/cmm (3.80-5.20) L 10/14/17 04:20 Hgb 7.9 gm/dL (12-16) L* 10/14/17 04:20 Hct 24.3 % (41.0-60) L 10/14/17 04:20 MCV 79.6 fl (81-100) L 10/14/17 04:20 MCH 25.9 pg (27.0-31.0) L 10/14/17 04:20 MCHC Differential 32.5 pg (28.0-36.0) 10/14/17 04:20 RDW 20.7 % (11.5-20.0) H 10/14/17 04:20 Plt Count 541 Th/cmm (150-400) H 10/14/17 04:20 MPV 7.6 fl 10/14/17 04:20 Neutrophils % 73.7 % (40.0-80.0) 10/14/17 04:20 Lymphocytes % 18.0 % (20.0-50.0) L 10/14/17 04:20 Monocytes % 7.3 % (2.0-10.0) 10/14/17 04:20 Eosinophils % 0.5 % (0.0-5.0) 10/14/17 04:20 Basophils % 0.5 % (0.0-2.0) 10/14/17 04:20 Sodium 131 mEq/L (136-145) L 10/14/17 04:20 Potassium 3.2 mEq/L (3.5-5.1) L 10/14/17 04:20 Chloride 95 mEq/L (98-107) L 10/14/17 04:20 Carbon Dioxide 28.4 mEq/L (21.0-31.0) 10/14/17 04:20 Anion Gap 10.8 (7.0-16.0) 10/14/17 04:20 BUN 15 mg/dL (7-25) 10/14/17 04:20 Creatinine 0.6 mg/dL (0.6-1.2) 10/14/17 04:20 Est GFR ( Amer) TNP 10/14/17 04:20 Est GFR (Non-Af Amer) TNP 10/14/17 04:20 BUN/Creatinine Ratio 25.0 10/14/17 04:20 Glucose 111 mg/dL (70-105) H 10/14/17 04:20 POC Glucose 106 MG/DL (70 - 105) H 10/13/17 09:54 Whole Bld Lactic Acid 1.49 mmol/L (0.60-1.99) 10/13/17 09:35 Calcium 8.5 mg/dL (8.6-10.3) L 10/14/17 04:20 Total Bilirubin 0.6 mg/dL (0.3-1.0) 10/14/17 04:20 AST 15 U/L (13-39) 10/14/17 04:20 ALT 9 U/L (7-52) 10/14/17 04:20 Alkaline Phosphatase 91 U/L (34-104) 10/14/17 04:20 Total Protein 7.7 gm/dL (6.0-8.3) 10/14/17 04:20 Albumin 2.5 gm/dL (3.7-5.3) L 10/14/17 04:20 Globulin 5.2 gm/dL 10/14/17 04:20 Albumin/Globulin Ratio 0.5 (1.0-1.8) L 10/14/17 04:20 Blood Type O POSITIVE 10/13/17 09:35 Antibody Screen NEGATIVE 10/13/17 09:35 Crossmatch See Detail 10/13/17 09:35 - Physical Exam Vitals and I&O: Vital Signs Temp 98.5 F 10/14/17 07:00 Pulse 100 10/14/17 13:55 Resp 28 10/14/17 07:00 BP 154/81 10/14/17 07:00 Pulse Ox 100 10/14/17 14:00 Intake & Output 10/13/17 10/14/17 10/14/17 18:59 06:59 18:59 Intake Total 1650 1602.083 100 Balance 1650 1602.083 100 Weight (lbs) 50.576 kg 50.802 kg Intake: Intake, IV Amount 1350 1102.083 100 KCL 20mEq/100mL Premix 20 100 meq In 100 ml @ 50 mls/ hr IV Q2H [facility] Rx#: [id number] Piperacillin Sodium/ 100 100 Tazobact 3.375 gm In Sodium Chloride 0.9% 50 ml @ 100 mls/hr IV Q8HR [facility] Rx#:[id number] Sodium Chloride 0.9% 1, 1002.083 000 ml @ 125 mls/hr IV . Q8H [facility] Rx#:[id number] Vancomycin HCl 1 gm In 250 Sodium Chloride 0.9% 250 ml @ 165 mls/hr IV Q24H [facility] Rx#:[id number] Tube Feeding 50 400 Other 250 100 Other: # Voids 4 3 # Bowel Movements 0 Weight Source Bedscale Bedscale Active Medications: Current Medications Acetaminophen (Tylenol 650mg/20.3ml Suspension) 650 mg GT Q4HR PRN PRN Reason: Mild Pain or Fever >101 Stop: 12/12/17 13:45 Last Admin: 10/13/17 17:59 Dose: 650 mg Albuterol Sulfate (Albuterol 2.5mg/3ml Neb Ud) 2.5 mg HHN Q3H PRN PRN Reason: SOB/WHEEZING/RESPIRATORY DISTR Stop: 12/12/17 13:45 Albuterol Sulfate (Albuterol 2.5mg/3ml Neb Ud) 2.5 mg HHN Q4HRT [facility] Stop: 12/12/17 18:59 Last Admin: 10/14/17 11:50 Dose: 2.5 mg Ascorbic Acid (Vitamin C) 500 mg PO DAILY [facility] Stop: 12/13/17 08:59 Last Admin: 10/14/17 09:41 Dose: 500 mg Chlorhexidine Gluconate (Peridex) 15 ml MM 08,1999 [facility] Stop: 12/12/17 19:59 Last Admin: 10/14/17 08:00 Dose: 15 ml Dextrose (D50w) 50 ml IVP PRN PRN PRN Reason: B.S > 60 MG/DL Stop: 12/12/17 08:04 Enalaprilat (Vasotec) 1.25 mg IVP Q4HR PRN PRN Reason: SBP ABOVE 160 MMHG Stop: 12/12/17 08:58 Last Admin: 10/13/17 09:30 Dose: 1.25 mg Ferrous Sulfate (Iron) 450 mg GT DAILY [facility] Stop: 12/13/17 08:59 Last Admin: 10/14/17 09:41 Dose: 450 mg Sodium Chloride (Nacl 0.9%) 1,000 mls @ 125 mls/hr IV .Q8H [facility] Stop: 12/12/17 07:59 Last Admin: 10/14/17 01:57 Dose: 125 mls/hr Vancomycin HCl 1 gm/ Sodium (Chloride) 250 mls @ 165 mls/hr IV Q24H [facility] Stop: 12/12/17 07:59 Last Admin: 10/14/17 09:40 Dose: 165 mls/hr Piperacillin Sod/Tazobactam (Sod 3.375 gm/ Sodium Chloride) 50 mls @ 100 mls/ hr IV Q8HR [facility] Stop: 12/12/17 08:01 Last Admin: 10/14/17 13:37 Dose: 100 mls/hr Lactobacillus Rhamnosus (Culturelle 15b) 1 each PO DAILY [facility] Stop: 12/13/17 13:59 Last Admin: 10/14/17 13:45 Dose: 1 each Levetiracetam (Keppra) 250 mg PO Q12H [facility] Stop: 12/12/17 13:59 Last Admin: 10/14/17 01:57 Dose: 250 mg Lorazepam (Ativan) 0.5 mg GT Q6H PRN; Protocol PRN Reason: Anxiety Stop: 12/12/17 13:45 Miscellaneous (Vancomycin Iv Per Pharmacy) 1 ea PRN PRN PRN Reason: PROTOCOL Stop: 12/12/17 08:00 Miscellaneous (Vte [employer] Prophylaxis Screen/ Admission) 1 ea PRN PRN PRN Reason: PROTOCOL Stop: 12/13/17 10:44 Miscellaneous (Probiotic Screen) 1 ea MC PRN PRN PRN Reason: PROTOCOL Stop: 12/13/17 12:03 Morphine Sulfate (Morphine) 1 mg IVP Q4HR PRN PRN Reason: Pain (Moderate) Stop: 12/12/17 09:34 Last Admin: 10/13/17 21:50 Dose: 1 mg Morphine Sulfate (Morphine) 2 mg IVP Q4HR PRN PRN Reason: Pain (Severe) Stop: 12/12/17 09:35 Last Admin: 10/13/17 10:10 Dose: 2 mg Morphine Sulfate (Morphine Ir) 15 mg GT Q6H PRN PRN Reason: MOD/SEVERE PAIN Stop: 12/12/17 13:45 Pantoprazole Sodium (Protonix) 40 mg IVP DAILY [facility] Stop: 12/14/17 08:59 General: Alert, Other (Evidence of R craniotomy) Cardiovascular: Regular rate Abdomen: Bowel sounds, Soft, no Tender, no Hepatomegaly, no Splenomegaly, no Distended, no Rebound Skin: no Rash - Procedures Procedures: Procedures Procedure Code Date RESPIRATORY VENTILATION, 24-96 CONSECUTIVE HOURS [id number] 10/13/17 Assessment/Plan - Assessment Assessment: # G tube malfunction # CVA in the past # Traumatic brain injury # Dysphagia with G tube # Respiratory failure with tracheostomy G tube replaced at bedside on 10/13 without issue, now tolerating feeds at goal rate Plan: - cont tube feeds at 50cc/hr - hold for residual > 150cc, check every 6 hours - flush 100cc water every 6 hours - management of the pt's respiratory issues as per primary GI to see intermittently, please call with any questions
--- NOTE | 2017-10-14 15:31 | Consultation ---
DATE OF CONSULTATION: 10/13/[address] Soria for this consultation. HISTORY OF PRESENT ILLNESS: This is an 82-year-old female with history of CVA, craniotomy, chronic respiratory failure, ventilator dependent, presented with a malfunctioning G-tube and was found to have fever of 101. Cultures were sent, started on antibiotics. The patient unable to give any further history, appears to be comfortable otherwise. REVIEW OF SYSTEMS: Unable to obtain because of the patient's condition. PHYSICAL EXAMINATION: GENERAL: The patient is on a vent, lethargic. VITAL SIGNS: Temperature 101.2, pulse 89, respiration is 21, blood pressure 142/74, saturation is 100%. HEENT: Atraumatic, normocephalic. Pupils react to light and accommodation. Ears, nose and throat normal. NECK: Supple. No JVD. CHEST: There are rhonchi bilaterally, no wheezing. HEART: Regular rate and rhythm. No murmurs. ABDOMEN: Soft. No tenderness. EXTREMITIES: No edema. LABORATORY DATA: WBC is 10.1, hemoglobin 8.0, hematocrit 24.7, platelets 499. Sodium 129, potassium 3.9, BUN is 11, creatinine 0.4. Chest x-ray showed bilateral infiltrates, extensive. IMPRESSION: This is an 82-year-old female with, 1. Respiratory failure. 2. Pneumonia, possible aspiration. 3. Dysphagia. 4. Weakness. 5. Cerebrovascular accident. PLAN: 1. Ventilator support, increase tidal volume 450. 2. The patient started already on broad-spectrum IV antibiotics. 3. Follow sputum and blood cultures and nebulizer treatment. I will follow the patient with you. Thank you very much for this consultation. JOB# [id number]
--- NOTE | 2017-10-14 16:19 | General Progress Note ---
Subjective - Review of Systems Service Date: 10/14/17 Subjective: nonverbal no distress Objective - Results Result Diagrams: 10/14/17 04:20 10/14/17 04:20 Recent Labs: Laboratory Last Values WBC 9.8 Th/cmm (4.8-10.8) 10/14/17 04:20 RBC 3.05 Mil/cmm (3.80-5.20) L 10/14/17 04:20 Hgb 7.9 gm/dL (12-16) L* 10/14/17 04:20 Hct 24.3 % (41.0-60) L 10/14/17 04:20 MCV 79.6 fl (81-100) L 10/14/17 04:20 MCH 25.9 pg (27.0-31.0) L 10/14/17 04:20 MCHC Differential 32.5 pg (28.0-36.0) 10/14/17 04:20 RDW 20.7 % (11.5-20.0) H 10/14/17 04:20 Plt Count 541 Th/cmm (150-400) H 10/14/17 04:20 MPV 7.6 fl 10/14/17 04:20 Neutrophils % 73.7 % (40.0-80.0) 10/14/17 04:20 Lymphocytes % 18.0 % (20.0-50.0) L 10/14/17 04:20 Monocytes % 7.3 % (2.0-10.0) 10/14/17 04:20 Eosinophils % 0.5 % (0.0-5.0) 10/14/17 04:20 Basophils % 0.5 % (0.0-2.0) 10/14/17 04:20 Sodium 131 mEq/L (136-145) L 10/14/17 04:20 Potassium 3.2 mEq/L (3.5-5.1) L 10/14/17 04:20 Chloride 95 mEq/L (98-107) L 10/14/17 04:20 Carbon Dioxide 28.4 mEq/L (21.0-31.0) 10/14/17 04:20 Anion Gap 10.8 (7.0-16.0) 10/14/17 04:20 BUN 15 mg/dL (7-25) 10/14/17 04:20 Creatinine 0.6 mg/dL (0.6-1.2) 10/14/17 04:20 Est GFR ( Amer) TNP 10/14/17 04:20 Est GFR (Non-Af Amer) TNP 10/14/17 04:20 BUN/Creatinine Ratio 25.0 10/14/17 04:20 Glucose 111 mg/dL (70-105) H 10/14/17 04:20 POC Glucose 106 MG/DL (70 - 105) H 10/13/17 09:54 Whole Bld Lactic Acid 1.49 mmol/L (0.60-1.99) 10/13/17 09:35 Calcium 8.5 mg/dL (8.6-10.3) L 10/14/17 04:20 Total Bilirubin 0.6 mg/dL (0.3-1.0) 10/14/17 04:20 AST 15 U/L (13-39) 10/14/17 04:20 ALT 9 U/L (7-52) 10/14/17 04:20 Alkaline Phosphatase 91 U/L (34-104) 10/14/17 04:20 Total Protein 7.7 gm/dL (6.0-8.3) 10/14/17 04:20 Albumin 2.5 gm/dL (3.7-5.3) L 10/14/17 04:20 Globulin 5.2 gm/dL 10/14/17 04:20 Albumin/Globulin Ratio 0.5 (1.0-1.8) L 10/14/17 04:20 Blood Type O POSITIVE 10/13/17 09:35 Antibody Screen NEGATIVE 10/13/17 09:35 Crossmatch See Detail 10/13/17 09:35 - Physical Exam Vitals and I&O: Vital Signs Temp 97.8 F 10/14/17 12:00 Pulse 106 10/14/17 14:00 Resp 24 10/14/17 14:00 BP 143/74 10/14/17 14:00 Pulse Ox 100 10/14/17 14:00 Intake & Output 10/13/17 10/14/17 10/14/17 18:59 06:59 18:59 Intake Total 1650 8295.441 6064 Balance 1650 8994.364 6457 Weight (lbs) 50.576 kg 50.802 kg Intake: Intake, IV Amount 1350 6284.927 2581 KCL 20mEq/100mL Premix 20 100 meq In 100 ml @ 50 mls/ hr IV Q2H [facility] Rx#: [id number] Piperacillin Sodium/ 100 100 50 Tazobact 3.375 gm In Sodium Chloride 0.9% 50 ml @ 100 mls/hr IV Q8HR [facility] Rx#:[id number] Sodium Chloride 0.9% 1, 1187.323 3791 000 ml @ 125 mls/hr IV . Q8H [facility] Rx#:[id number] Vancomycin HCl 1 gm In 250 250 Sodium Chloride 0.9% 250 ml @ 165 mls/hr IV Q24H [facility] Rx#:[id number] Tube Feeding 50 400 Other 250 100 Other: # Voids 4 3 # Bowel Movements 0 Weight Source Bedscale Bedscale Active Medications: Current Medications Acetaminophen (Tylenol 650mg/20.3ml Suspension) 650 mg GT Q4HR PRN PRN Reason: Mild Pain or Fever >101 Stop: 12/12/17 13:45 Last Admin: 10/13/17 17:59 Dose: 650 mg Albuterol Sulfate (Albuterol 2.5mg/3ml Neb Ud) 2.5 mg HHN Q3H PRN PRN Reason: SOB/WHEEZING/RESPIRATORY DISTR Stop: 12/12/17 13:45 Albuterol Sulfate (Albuterol 2.5mg/3ml Neb Ud) 2.5 mg HHN Q4HRT [facility] Stop: 12/12/17 18:59 Last Admin: 10/14/17 15:46 Dose: 2.5 mg Ascorbic Acid (Vitamin C) 500 mg PO DAILY [facility] Stop: 12/13/17 08:59 Last Admin: 10/14/17 09:41 Dose: 500 mg Chlorhexidine Gluconate (Peridex) 15 ml MM 0800,1999 [facility] Stop: 12/12/17 19:59 Last Admin: 10/14/17 08:00 Dose: 15 ml Dextrose (D50w) 50 ml IVP PRN PRN PRN Reason: B.S > 60 MG/DL Stop: 12/12/17 08:04 Enalaprilat (Vasotec) 1.25 mg IVP Q4HR PRN PRN Reason: SBP ABOVE 160 MMHG Stop: 12/12/17 08:58 Last Admin: 10/13/17 09:30 Dose: 1.25 mg Ferrous Sulfate (Iron) 450 mg GT DAILY [facility] Stop: 12/13/17 08:59 Last Admin: 10/14/17 09:41 Dose: 450 mg Sodium Chloride (Nacl 0.9%) 1,000 mls @ 125 mls/hr IV .Q8H [facility] Stop: 12/12/17 07:59 Last Admin: 10/14/17 15:14 Dose: 125 mls/hr Vancomycin HCl 1 gm/ Sodium (Chloride) 250 mls @ 165 mls/hr IV Q24H [facility] Stop: 12/12/17 07:59 Last Infusion: 10/14/17 15:15 Dose: Infused Piperacillin Sod/Tazobactam (Sod 3.375 gm/ Sodium Chloride) 50 mls @ 100 mls/ hr IV Q8HR [facility] Stop: 12/12/17 08:01 Last Infusion: 10/14/17 15:15 Dose: Infused Lactobacillus Rhamnosus (Culturelle 15b) 1 each PO DAILY [facility] Stop: 12/13/17 13:59 Last Admin: 10/14/17 13:45 Dose: 1 each Levetiracetam (Keppra) 250 mg PO Q12H [facility] Stop: 12/12/17 13:59 Last Admin: 10/14/17 15:13 Dose: 250 mg Lorazepam (Ativan) 0.5 mg GT Q6H PRN; Protocol PRN Reason: Anxiety Stop: 12/12/17 13:45 Miscellaneous (Vancomycin Iv Per Pharmacy) 1 ea [facility] PRN PRN PRN Reason: PROTOCOL Stop: 12/12/17 08:00 Miscellaneous (Vte Chemical Prophylaxis Screen/ Admission) 1 ea [facility] PRN PRN PRN Reason: PROTOCOL Stop: 12/13/17 10:44 Miscellaneous (Probiotic Screen) 1 ea [facility] PRN PRN PRN Reason: PROTOCOL Stop: 12/13/17 12:03 Morphine Sulfate (Morphine) 1 mg IVP Q4HR PRN PRN Reason: Pain (Moderate) Stop: 12/12/17 09:34 Last Admin: 10/13/17 21:50 Dose: 1 mg Morphine Sulfate (Morphine) 2 mg IVP Q4HR PRN PRN Reason: Pain (Severe) Stop: 12/12/17 09:35 Last Admin: 10/13/17 10:10 Dose: 2 mg Morphine Sulfate (Morphine Ir) 15 mg GT Q6H PRN PRN Reason: MOD/SEVERE PAIN Stop: 12/12/17 13:45 Pantoprazole Sodium (Protonix) 40 mg IVP DAILY [facility] Stop: 12/14/17 08:59 General: Alert, Other (Evidence of R craniotomy) HEENT: Atraumatic Cardiovascular: Regular rate Lungs: Other (pnemonia) Abdomen: Bowel sounds, Soft, no Tender, no Hepatomegaly, no Splenomegaly, no Distended, no Rebound Skin: no Rash - Procedures Procedures: Procedures Procedure Code Date RESPIRATORY VENTILATION, 24-96 CONSECUTIVE HOURS [id number] 10/13/17 Assessment/Plan - Assessment Assessment: gt malfunction hx cvs vdrf respiratory failure pvs - Plan Plan: monitor vitals labs cmp Nutritional Asmnt/Malnutr-PDOC - Dietary Evaluation Malnutrition Findings (Please click <Entered> for more info): Nutritional Asmnt/Malnutrition Start: 10/13/17 15: 20 Text: Status: Complete Freq: Protocol: Document 10/13/17 15:21 LCHENG (Rec: 10/13/17 15:42 [email or web address]) Nutritional Asmnt/Malnutrition Patient General Information Nutritional Screening High Risk Diagnosis hyponatremia, J tube placement Pertinent Medical Hx/Surgical Hx CVA/TIA, ESRD, dementia, PEG/ Gtube, trach Subjective Information Pt seen on vent via trach. Per RN, no nutrition plan at this time from MD. pt is on NPO status. Current Diet Order/ Nutrition Support no diet order. Pertinent Medications vit C, Iron, piperacillin, nacl 0.9%, vancomycin Pertinent Labs 10/13 Na 129, cl 89, Cr 0.4 Nutritional Hx/Data Height 1.6 m Height (Calculated Centimeters) 160.0 Current Weight (lbs) 50.349 kg Weight (Calculated Kilograms) 50.3 Weight (Calculated Grams) 31689.8 [place] Body Weight 115 Body Mass Index (BMI) 19.6 Weight Status Approriate GI Symptoms GI Symptoms None Last BM not indicated Difficult in: None Skin Integrity/Comment: intact Estimated Nutritional Goals BEE in Kcals: Using Current wt Calories/Kcals/Kg 25-30 Kcals Calculated 6358-5383 Protein: Using Current wt Protein g/k-1.2 Protein Calculated 50-60 Fluid: ml 1250-1500ml (1ml/kcal) Nutritional Problem 2. Problem Problem inadequate energy intake Etiology J tube malfunction Signs/Symptoms: nutrition support not initiated 1. Problem Problem altered nutrition labs Etiology electrolytes imbalance Signs/Symptoms: Na 129 Malnutrition Alert Is there a minimum of two criteria No selected? Query Text:Check all the applicable criteria. A minimum of two criteria are recommended for diagnosis of either severe or non-severe malnutrition. Malnutrition Related to Morbid Obesity Malnutrition related to morbid obesity No Intervention/Recommendation Comments 1. Monitor NPO status 2. If TF needed, recommend Fibersource HN 55m/hr x 20hr. This will provide 1320kcal, 59g protein, 891ml free water. 3. Monitor wt, skin integrity and labs 4. F/U as high risk in 2 days, 6/7 Expected Outcomes/Goals Expected Outcomes/Goals 1. Pt to meet at least 75% of nutritional needs. 2. Wt stability, skin to remain intact, labs to approach WNL.
[2017-10-14 19:16] LABS: URINE BILIRUBIN NEGATIVE (NEGATIVE); URINE BLOOD MODERATE (NEGATIVE); URINE GLUCOSE (UA) NEGATIVE (NEGATIVE); URINE KETONE NEGATIVE (NEGATIVE); URINE LEUKOCYTE ESTERASE LARGE (NEGATIVE); URINE MICROSCOPIC INDICATED? YES; URINE NITRATE NEGATIVE (NEGATIVE); URINE PROTEIN 30 mg/dL (NEGATIVE); URINE UROBILINOGEN 0.2 E.U./dL (0.2 - 1.0)
[2017-10-14 19:17] LABS: URINE CLARITY CLOUDY (CLEAR); URINE COLOR YELLOW
[2017-10-14 19:22] LABS: URINE WBC >100 /hpf (0-5)
[2017-10-14 19:23] LABS: URINE BACTERIA MODERATE /hpf (NONE SEEN); URINE EPITHELIAL CELLS FEW /lpf (FEW)
[2017-10-14] MEDS: Morphine Sulfate 4 mg/mL 1mL Syr IVP PRN (23:07)
[2017-10-15] MEDS: Sodium Chloride 0.9% 1,000 ML IV SCH (01:26)
[2017-10-15] MEDS: Albuterol Nebulizer 2.5mg/3mL HHN SCH ×6 (02:13→22:19)
[2017-10-15 06:48] LABS: ANION GAP 7.7 (7.0-16.0); BUN - UREA NITROGEN 10 mg/dL (7-25); CALCIUM SERUM 8.1 mg/dL (8.6-10.3); CARBON DIOXIDE 27.5 mEq/L (21.0-31.0); CHLORIDE 101 mEq/L (98-107); CREATININE - SERUM 0.4 mg/dL (0.6-1.2); GLUCOSE 109 mg/dL (70-105); POTASSIUM SERUM 3.2 mEq/L (3.5-5.1); SODIUM SERUM 133 mEq/L (136-145)
--- NOTE | 2017-10-15 08:19 | Diagnostic Imaging Report ---
CHEST X-RAY: AP view INDICATION: Shortness of breath COMPARISON: 10/14/2016 FINDINGS: Support devices are stable. Worsening bilateral pulmonary infiltrates are noted with bilateral effusions. Cardiomegaly is noted. IMPRESSION: Worsening bilateral pulmonary infiltrates and bilateral effusions.
[2017-10-15] MEDS: Lactobacillus Rhamnosus GG 15 Billion CFU CAP.SPRINK PO SCH (09:22)
[2017-10-15] MEDS: Multivitamin w/ Minerals Tab GT SCH (09:22)
[2017-10-15] MEDS: Ferrous Sulfate 300 MG/5 ML UDC GT SCH (09:22)
[2017-10-15] MEDS: Chlorhexidine Gluconate 0.12% 15mL Mouthwash MM SCH ×2 (09:24→20:14)
[2017-10-15] MEDS: Morphine Sulfate 4 mg/mL 1mL Syr IVP PRN ×3 (11:21→20:09)
[2017-10-15 13:30] LABS: % BASOPHILS 0.5 % (0.0-2.0); % EOSINOPHILS 0.5 % (0.0-5.0); % LYMPHOCYTES 13.3 % (20.0-50.0); % MONOCYTES 9.2 % (2.0-10.0); % NEUTROPHILS 76.5 % (40.0-80.0); HEMATOCRIT 23.4 % (41.0-60); LYMPHOCYTE ABSOLUTE 1.2 Th/cmm (1.5-3.0); MEAN CELL VOLUME 79.8 fl (81-100); MEAN CORPUSCULAR HEMOGLOBIN 25.5 pg (27.0-31.0); MEAN CORPUSCULAR HGB CONC 31.9 pg (28.0-36.0); MEAN PLATELET VOLUME 8.1 fl; MONOCYTE ABSOLUTE 0.8 Th/cmm (0.3-1.0); NEUTROPHILE ABSOLUTE 7.1 Th/cmm (1.8-8.0); PLATELET COUNT 459 Th/cmm (150-400); RED BLOOD COUNT 2.92 Mil/cmm (3.80-5.20); RED CELL DISTRIBUTION WIDTH 20.7 % (11.5-20.0); WHITE BLOOD COUNT 9.1 Th/cmm (4.8-10.8)
[2017-10-15] MEDS ORDERED: Sodium Chloride 0.9% 1,000 ML IV SCH (13:30)
[2017-10-15 13:35] LABS: HEMOGLOBIN 7.5 gm/dL (12-16)
[2017-10-15] MEDS: KCL 20mEq/100mL Premix 20 MEQ/100 ML PIGGYBACK IV SCH ×2 (14:14→16:29)
--- NOTE | 2017-10-15 15:42 | General Progress Note ---
Subjective - Review of Systems Service Date: 10/15/17 Subjective: awake stable no distress Objective - Results Result Diagrams: 10/15/17 06:20 10/15/17 06:20 Recent Labs: Laboratory Last Values WBC 9.1 Th/cmm (4.8-10.8) 10/15/17 06:20 RBC 2.92 Mil/cmm (3.80-5.20) L 10/15/17 06:20 Hgb 7.5 gm/dL (12-16) L* 10/15/17 06:20 Hct 23.4 % (41.0-60) L 10/15/17 06:20 MCV 79.8 fl (81-100) L 10/15/17 06:20 MCH 25.5 pg (27.0-31.0) L 10/15/17 06:20 MCHC Differential 31.9 pg (28.0-36.0) 10/15/17 06:20 RDW 20.7 % (11.5-20.0) H 10/15/17 06:20 Plt Count 459 Th/cmm (150-400) H 10/15/17 06:20 MPV 8.1 fl 10/15/17 06:20 Neutrophils % 76.5 % (40.0-80.0) 10/15/17 06:20 Lymphocytes % 13.3 % (20.0-50.0) L 10/15/17 06:20 Monocytes % 9.2 % (2.0-10.0) 10/15/17 06:20 Eosinophils % 0.5 % (0.0-5.0) 10/15/17 06:20 Basophils % 0.5 % (0.0-2.0) 10/15/17 06:20 Sodium 133 mEq/L (136-145) L 10/15/17 06:20 Potassium 3.2 mEq/L (3.5-5.1) L 10/15/17 06:20 Chloride 101 mEq/L (98-107) 10/15/17 06:20 Carbon Dioxide 27.5 mEq/L (21.0-31.0) 10/15/17 06:20 Anion Gap 7.7 (7.0-16.0) 10/15/17 06:20 BUN 10 mg/dL (7-25) 10/15/17 06:20 Creatinine 0.4 mg/dL (0.6-1.2) L 10/15/17 06:20 Est GFR ( Amer) TNP 10/15/17 06:20 Est GFR (Non-Af Amer) TNP 10/15/17 06:20 BUN/Creatinine Ratio 25.0 10/15/17 06:20 Glucose 109 mg/dL (70-105) H 10/15/17 06:20 POC Glucose 106 MG/DL (70 - 105) H 10/13/17 09:54 Whole Bld Lactic Acid 1.49 mmol/L (0.60-1.99) 10/13/17 09:35 Calcium 8.1 mg/dL (8.6-10.3) L 10/15/17 06:20 Total Bilirubin 0.6 mg/dL (0.3-1.0) 10/14/17 04:20 AST 15 U/L (13-39) 10/14/17 04:20 ALT 9 U/L (7-52) 10/14/17 04:20 Alkaline Phosphatase 91 U/L (34-104) 10/14/17 04:20 Total Protein 7.7 gm/dL (6.0-8.3) 10/14/17 04:20 Albumin 2.5 gm/dL (3.7-5.3) L 10/14/17 04:20 Globulin 5.2 gm/dL 10/14/17 04:20 Albumin/Globulin Ratio 0.5 (1.0-1.8) L 10/14/17 04:20 Urine Color YELLOW 10/14/17 19:00 Urine Clarity CLOUDY (CLEAR) H 10/14/17 19:00 Urine pH 7.0 (4.6 - 8.0) 10/14/17 19:00 Ur Specific [place] 1.015 (1.005-1.030) 10/14/17 19:00 Urine Protein 30 mg/dL (NEGATIVE) H 10/14/17 19:00 Urine Glucose (UA) NEGATIVE mg/dL (NEGATIVE) 10/14/17 19:00 Urine Ketones NEGATIVE mg/dL (NEGATIVE) 10/14/17 19:00 Urine Blood MODERATE (NEGATIVE) H 10/14/17 19:00 Urine Nitrate NEGATIVE (NEGATIVE) 10/14/17 19:00 Urine Bilirubin NEGATIVE (NEGATIVE) 10/14/17 19:00 Urine Urobilinogen 0.2 E.U./dL (0.2 - 1.0) 10/14/17 19:00 Ur Leukocyte Esterase LARGE (NEGATIVE) H 10/14/17 19:00 Urine RBC 5-10 /hpf (0-5) H 10/14/17 19:00 Urine WBC >100 /hpf (0-5) H 10/14/17 19:00 Ur Epithelial Cells FEW /lpf (FEW) 10/14/17 19:00 Urine Bacteria MODERATE /hpf (NONE SEEN) H 10/14/17 19:00 Vancomycin Trough 3.2 ug/mL (5-10) L 10/15/17 06:20 Blood Type O POSITIVE 10/13/17 09:35 Antibody Screen NEGATIVE 10/13/17 09:35 Crossmatch See Detail 10/13/17 09:35 - Physical Exam Vitals and I&O: Vital Signs Temp 98.4 F 10/15/17 12:00 Pulse 85 10/15/17 14:00 Resp 24 10/15/17 14:00 BP 108/49 10/15/17 14:00 Pulse Ox 99 10/15/17 14:00 Intake & Output 10/14/17 10/15/17 10/15/17 18:59 06:59 18:59 Intake Total 2300 1825.000 50 Output Total 800 1150 Balance 1500 675.000 50 Weight (lbs) 50.802 kg 51.256 kg Intake: Intake, IV Amount 1400 1325.000 50 KCL 20mEq/100mL Premix 20 100 meq In 100 ml @ 50 mls/ hr IV Q2H [facility] Rx#: [id number] Piperacillin Sodium/ 50 50 50 Tazobact 3.375 gm In Sodium Chloride 0.9% 50 ml @ 100 mls/hr IV Q8HR [facility] Rx#:[id number] Sodium Chloride 0.9% 1, 1000 1275.000 000 ml @ 125 mls/hr IV . Q8H [facility] Rx#:[id number] Vancomycin HCl 1 gm In 250 Sodium Chloride 0.9% 250 ml @ 165 mls/hr IV Q24H [facility] Rx#:[id number] Tube Feeding 600 400 Other 300 100 Output: Urine 800 1000 Stool 150 Other: # Bowel Movements 1 Stool Characteristics Soft Soft [place] [facility] Active Medications: Current Medications Acetaminophen (Tylenol 650mg/20.3ml Suspension) 650 mg GT Q4HR PRN PRN Reason: Mild Pain or Fever >101 Stop: 12/12/17 13:45 Last Admin: 10/13/17 17:59 Dose: 650 mg Albuterol Sulfate (Albuterol 2.5mg/3ml Neb Ud) 2.5 mg HHN Q3H PRN PRN Reason: SOB/WHEEZING/RESPIRATORY DISTR Stop: 12/12/17 13:45 Albuterol Sulfate (Albuterol 2.5mg/3ml Neb Ud) 2.5 mg HHN Q4HRT [facility] Stop: 12/12/17 18:59 Last Admin: 10/15/17 12:00 Dose: 2.5 mg Ascorbic Acid (Vitamin C) 500 mg PO DAILY [facility] Stop: 12/13/17 08:59 Last Admin: 10/15/17 09:22 Dose: 500 mg Chlorhexidine Gluconate (Peridex) 15 ml MM 0800,1999 [facility] Stop: 12/12/17 19:59 Last Admin: 10/15/17 09:24 Dose: 15 ml Dextrose (D50w) 50 ml IVP PRN PRN PRN Reason: B.S > 60 MG/DL Stop: 12/12/17 08:04 Enalaprilat (Vasotec) 1.25 mg IVP Q4HR PRN PRN Reason: SBP ABOVE 160 MMHG Stop: 12/12/17 08:58 Last Admin: 10/13/17 09:30 Dose: 1.25 mg Ferrous Sulfate (Iron) 450 mg GT DAILY [facility] Stop: 12/13/17 08:59 Last Admin: 10/15/17 09:22 Dose: 450 mg Piperacillin Sod/Tazobactam (Sod 3.375 gm/ Sodium Chloride) 50 mls @ 100 mls/ hr IV Q8HR [facility] Stop: 12/12/17 08:01 Last Admin: 10/15/17 13:16 Dose: 100 mls/hr Vancomycin HCl 0.75 gm/ Sodium (Chloride) 250 mls @ 165 mls/hr IV Q12H [facility] Stop: 12/14/17 08:59 Last Admin: 10/15/17 10:58 Dose: 165 mls/hr Potassium Chloride (Potassium Chloride) 20 meq in 100 mls @ 50 mls/hr IV Q2H [facility] Stop: 10/15/17 16:59 Last Admin: 10/15/17 14:14 Dose: 50 mls/hr Sodium Chloride (Nacl 0.9%) 1,000 mls @ 50 mls/hr IV .Q20H [facility] Stop: 12/14/17 13:29 Last Admin: 10/15/17 14:15 Dose: 50 mls/hr Lactobacillus Rhamnosus (Culturelle 15b) 1 each PO DAILY [facility] Stop: 12/13/17 13:59 Last Admin: 10/15/17 09:22 Dose: 1 each Levetiracetam (Keppra) 250 mg PO Q12H [facility] Stop: 12/12/17 13:59 Last Admin: 10/15/17 13:16 Dose: 250 mg Lorazepam (Ativan) 0.5 mg GT Q6H PRN; Protocol PRN Reason: Anxiety Stop: 12/12/17 13:45 Miscellaneous (Vancomycin Iv Per Pharmacy) 1 ea PRN PRN PRN Reason: PROTOCOL Stop: 12/12/17 08:00 Miscellaneous (Vte Chemical Prophylaxis Screen/ Admission) 1 ea PRN PRN PRN Reason: PROTOCOL Stop: 12/13/17 10:44 Miscellaneous (Probiotic Screen) 1 ea PRN PRN PRN Reason: PROTOCOL Stop: 12/13/17 12:03 Morphine Sulfate (Morphine) 1 mg IVP Q4HR PRN PRN Reason: Pain (Moderate) Stop: 12/12/17 09:34 Last Admin: 10/15/17 15:03 Dose: 1 mg Morphine Sulfate (Morphine) 2 mg IVP Q4HR PRN PRN Reason: Pain (Severe) Stop: 12/12/17 09:35 Last Admin: 10/13/17 10:10 Dose: 2 mg Morphine Sulfate (Morphine Ir) 15 mg GT Q6H PRN PRN Reason: MOD/SEVERE PAIN Stop: 12/12/17 13:45 Pantoprazole Sodium (Protonix) 40 mg IVP DAILY [facility] Stop: 12/14/17 08:59 Last Admin: 10/15/17 09:22 Dose: 40 mg General: Alert, Other (Evidence of R craniotomy) HEENT: Atraumatic Cardiovascular: Regular rate Lungs: Other (pnemonia) Abdomen: Bowel sounds, Soft, no Tender, no Hepatomegaly, no Splenomegaly, no Distended, no Rebound Skin: no Rash - Procedures Procedures: Procedures Procedure Code Date RESPIRATORY VENTILATION, 24-96 CONSECUTIVE HOURS [id number] 10/13/17 Assessment/Plan - Assessment Assessment: gt malfunction hx cvs vdrf respiratory failure pvs - Plan Plan: monitor vitals cmp Nutritional Asmnt/Malnutr-PDOC - Dietary Evaluation Malnutrition Findings (Please click <Entered> for more info): Nutritional Asmnt/Malnutrition Start: 10/13/17 15: 20 Text: Status: Complete Freq: Protocol: Document 10/13/17 15:21 LCHENG (Rec: 10/13/17 15:42 LCHENG [email or web address]) Nutritional Asmnt/Malnutrition Patient General Information Nutritional Screening High Risk Diagnosis hyponatremia, J tube placement Pertinent Medical Hx/Surgical Hx CVA/TIA, ESRD, dementia, PEG/ Gtube, trach Subjective Information Pt seen on vent via trach. Per RN, no nutrition plan at this time from MD. pt is on NPO status. Current Diet Order/ Nutrition Support no diet order. Pertinent Medications vit C, Iron, piperacillin, nacl 0.9%, vancomycin Pertinent Labs 10/13 Na 129, cl 89, Cr 0.4 Nutritional Hx/Data Height 1.6 m Height (Calculated Centimeters) 160.0 Current Weight (lbs) 50.349 kg Weight (Calculated Kilograms) 50.3 Weight (Calculated Grams) 33155.8 [place] Body Weight 115 Body Mass Index (BMI) 19.6 Weight Status Approriate GI Symptoms GI Symptoms None Last BM not indicated Difficult in: None Skin Integrity/Comment: intact Estimated Nutritional Goals BEE in Kcals: Using Current wt Calories/Kcals/Kg 25-30 Kcals Calculated 2967-7361 Protein: Using Current wt Protein g/k-1.2 Protein Calculated 50-60 Fluid: ml 1250-1500ml (1ml/kcal) Nutritional Problem 2. Problem Problem inadequate energy intake Etiology J tube malfunction Signs/Symptoms: nutrition support not initiated 1. Problem Problem altered nutrition labs Etiology electrolytes imbalance Signs/Symptoms: Na 129 Malnutrition Alert Is there a minimum of two criteria No selected? Query Text:Check all the applicable criteria. A minimum of two criteria are recommended for diagnosis of either severe or non-severe malnutrition. Malnutrition Related to Morbid Obesity Malnutrition related to morbid obesity No Intervention/Recommendation Comments 1. Monitor NPO status 2. If TF needed, recommend Fibersource HN 55m/hr x 20hr. This will provide 1320kcal, 59g protein, 891ml free water. 3. Monitor wt, skin integrity and labs 4. F/U as high risk in 2 days, 6/7 Expected Outcomes/Goals Expected Outcomes/Goals 1. Pt to meet at least 75% of nutritional needs. 2. Wt stability, skin to remain intact, labs to approach WNL.
[2017-10-15 16:39] LABS: URINE SOURCE CATH
[2017-10-15] MEDS ORDERED: Piperacillin Sodium/Tazobact 3.375 gm Vial IV ONE (20:19)
--- NOTE | 2017-10-16 01:20 | Infectious Disease Prog Note ---
Infectious Disease Subjective - Review of Systems Service Date: 10/15/17 Subjective: There is no new change, no fever. Infectious Disease Objective - Results Result Diagrams: 10/15/17 06:20 10/15/17 06:20 Recent Labs: Laboratory Last Values WBC 9.1 Th/cmm (4.8-10.8) 10/15/17 06:20 RBC 2.92 Mil/cmm (3.80-5.20) L 10/15/17 06:20 Hgb 7.5 gm/dL (12-16) L* 10/15/17 06:20 Hct 23.4 % (41.0-60) L 10/15/17 06:20 MCV 79.8 fl (81-100) L 10/15/17 06:20 MCH 25.5 pg (27.0-31.0) L 10/15/17 06:20 MCHC Differential 31.9 pg (28.0-36.0) 10/15/17 06:20 RDW 20.7 % (11.5-20.0) H 10/15/17 06:20 Plt Count 459 Th/cmm (150-400) H 10/15/17 06:20 MPV 8.1 fl 10/15/17 06:20 Neutrophils % 76.5 % (40.0-80.0) 10/15/17 06:20 Lymphocytes % 13.3 % (20.0-50.0) L 10/15/17 06:20 Monocytes % 9.2 % (2.0-10.0) 10/15/17 06:20 Eosinophils % 0.5 % (0.0-5.0) 10/15/17 06:20 Basophils % 0.5 % (0.0-2.0) 10/15/17 06:20 Sodium 133 mEq/L (136-145) L 10/15/17 06:20 Potassium 3.2 mEq/L (3.5-5.1) L 10/15/17 06:20 Chloride 101 mEq/L (98-107) 10/15/17 06:20 Carbon Dioxide 27.5 mEq/L (21.0-31.0) 10/15/17 06:20 Anion Gap 7.7 (7.0-16.0) 10/15/17 06:20 BUN 10 mg/dL (7-25) 10/15/17 06:20 Creatinine 0.4 mg/dL (0.6-1.2) L 10/15/17 06:20 Est GFR ( Amer) TNP 10/15/17 06:20 Est GFR (Non-Af Amer) TNP 10/15/17 06:20 BUN/Creatinine Ratio 25.0 10/15/17 06:20 Glucose 109 mg/dL (70-105) H 10/15/17 06:20 POC Glucose 106 MG/DL (70 - 105) H 10/13/17 09:54 Whole Bld Lactic Acid 1.49 mmol/L (0.60-1.99) 10/13/17 09:35 Calcium 8.1 mg/dL (8.6-10.3) L 10/15/17 06:20 Total Bilirubin 0.6 mg/dL (0.3-1.0) 10/14/17 04:20 AST 15 U/L (13-39) 10/14/17 04:20 ALT 9 U/L (7-52) 10/14/17 04:20 Alkaline Phosphatase 91 U/L (34-104) 10/14/17 04:20 Total Protein 7.7 gm/dL (6.0-8.3) 10/14/17 04:20 Albumin 2.5 gm/dL (3.7-5.3) L 10/14/17 04:20 Globulin 5.2 gm/dL 10/14/17 04:20 Albumin/Globulin Ratio 0.5 (1.0-1.8) L 10/14/17 04:20 Urine Source CATH 10/14/17 19:00 Urine Color YELLOW 10/14/17 19:00 Urine Clarity CLOUDY (CLEAR) H 10/14/17 19:00 Urine pH 7.0 (4.6 - 8.0) 10/14/17 19:00 Ur Specific [place] 1.015 (1.005-1.030) 10/14/17 19:00 Urine Protein 30 mg/dL (NEGATIVE) H 10/14/17 19:00 Urine Glucose (UA) NEGATIVE mg/dL (NEGATIVE) 10/14/17 19:00 Urine Ketones NEGATIVE mg/dL (NEGATIVE) 10/14/17 19:00 Urine Blood MODERATE (NEGATIVE) H 10/14/17 19:00 Urine Nitrate NEGATIVE (NEGATIVE) 10/14/17 19:00 Urine Bilirubin NEGATIVE (NEGATIVE) 10/14/17 19:00 Urine Urobilinogen 0.2 E.U./dL (0.2 - 1.0) 10/14/17 19:00 Ur Leukocyte Esterase LARGE (NEGATIVE) H 10/14/17 19:00 Urine RBC 5-10 /hpf (0-5) H 10/14/17 19:00 Urine WBC >100 /hpf (0-5) H 10/14/17 19:00 Ur Epithelial Cells FEW /lpf (FEW) 10/14/17 19:00 Urine Bacteria MODERATE /hpf (NONE SEEN) H 10/14/17 19:00 Vancomycin Trough 3.2 ug/mL (5-10) L 10/15/17 06:20 Blood Type O POSITIVE 10/13/17 09:35 Antibody Screen NEGATIVE 10/13/17 09:35 Crossmatch See Detail 10/13/17 09:35 - Physical Exam Vitals and I&O: Vital Signs Temp 99.9 F 10/16/17 00:00 Pulse 99 10/16/17 01:00 Resp 20 10/16/17 00:00 BP 157/79 10/16/17 00:00 Pulse Ox 100 10/16/17 01:00 Intake & Output 10/15/17 10/15/17 10/16/17 06:59 18:59 06:59 Intake Total 4299.172 4049 300 Output Total 1150 1500 Balance 675.000 -350 300 Weight (lbs) 51.256 kg 51.256 kg Intake: Intake, IV Amount 1325.000 450 300 KCL 20mEq/100mL Premix 20 100 meq In 100 ml @ 50 mls/ hr IV Q2H [facility] Rx#: [id number] Piperacillin Sodium/ 50 100 50 Tazobact 3.375 gm In Sodium Chloride 0.9% 50 ml @ 100 mls/hr IV Q8HR [facility] Rx#:[id number] Sodium Chloride 0.9% 1, 1275.000 000 ml @ 125 mls/hr IV . Q8H [facility] Rx#:[id number] Vancomycin HCl 0.75 gm In 250 250 Sodium Chloride 0.9% 250 ml @ 165 mls/hr IV Q12H [facility] Rx#:[id number] Tube Feeding 400 600 Other 100 100 Output: Urine 1000 1500 Stool 150 Other: # Bowel Movements 1 1 Stool Characteristics Soft Liquid Green Green Weight Source Bedscale Bedscale Active Medications: Current Medications Acetaminophen (Tylenol 650mg/20.3ml Suspension) 650 mg GT Q4HR PRN PRN Reason: Mild Pain or Fever >101 Stop: 12/12/17 13:45 Last Admin: 10/13/17 17:59 Dose: 650 mg Albuterol Sulfate (Albuterol 2.5mg/3ml Neb Ud) 2.5 mg HHN Q3H PRN PRN Reason: SOB/WHEEZING/RESPIRATORY DISTR Stop: 12/12/17 13:45 Albuterol Sulfate (Albuterol 2.5mg/3ml Neb Ud) 2.5 mg HHN Q4HRT [facility] Stop: 12/12/17 18:59 Last Admin: 10/15/17 22:19 Dose: 2.5 mg Ascorbic Acid (Vitamin C) 500 mg PO DAILY [facility] Stop: 12/13/17 08:59 Last Admin: 10/15/17 09:22 Dose: 500 mg Chlorhexidine Gluconate (Peridex) 15 ml MM 0800,1999 [facility] Stop: 12/12/17 19:59 Last Admin: 10/15/17 20:14 Dose: 15 ml Dextrose (D50w) 50 ml IVP PRN PRN PRN Reason: B.S > 60 MG/DL Stop: 12/12/17 08:04 Enalaprilat (Vasotec) 1.25 mg IVP Q4HR PRN PRN Reason: SBP ABOVE 160 MMHG Stop: 12/12/17 08:58 Last Admin: 10/13/17 09:30 Dose: 1.25 mg Ferrous Sulfate (Iron) 450 mg GT DAILY [facility] Stop: 12/13/17 08:59 Last Admin: 10/15/17 09:22 Dose: 450 mg Piperacillin Sod/Tazobactam (Sod 3.375 gm/ Sodium Chloride) 50 mls @ 100 mls/ hr IV Q8HR [facility] Stop: 12/12/17 08:01 Last Infusion: 10/15/17 20:54 Dose: Infused Vancomycin HCl 0.75 gm/ Sodium (Chloride) 250 mls @ 165 mls/hr IV Q12H [facility] Stop: 12/14/17 08:59 Last Infusion: 10/15/17 22:35 Dose: Infused Sodium Chloride (Nacl 0.9%) 1,000 mls @ 50 mls/hr IV .Q20H [facility] Stop: 12/14/17 13:29 Last Admin: 10/15/17 14:15 Dose: 50 mls/hr Lactobacillus Rhamnosus (Culturelle 15b) 1 each PO DAILY [facility] Stop: 12/13/17 13:59 Last Admin: 10/15/17 09:22 Dose: 1 each Levetiracetam (Keppra) 250 mg PO Q12H [facility] Stop: 12/12/17 13:59 Last Admin: 10/15/17 13:16 Dose: 250 mg Lorazepam (Ativan) 0.5 mg GT Q6H PRN; Protocol PRN Reason: Anxiety Stop: 12/12/17 13:45 Miscellaneous (Vancomycin Iv Per Pharmacy) 1 ea PRN PRN PRN Reason: PROTOCOL Stop: 12/12/17 08:00 Miscellaneous (Vte Chemical Prophylaxis Screen/ Admission) 1 ea PRN PRN PRN Reason: PROTOCOL Stop: 12/13/17 10:44 Miscellaneous (Probiotic Screen) 1 ea PRN PRN PRN Reason: PROTOCOL Stop: 12/13/17 12:03 Morphine Sulfate (Morphine) 1 mg IVP Q4HR PRN PRN Reason: Pain (Moderate) Stop: 12/12/17 09:34 Last Admin: 10/15/17 15:03 Dose: 1 mg Morphine Sulfate (Morphine) 2 mg IVP Q4HR PRN PRN Reason: Pain (Severe) Stop: 12/12/17 09:35 Last Admin: 10/15/17 20:09 Dose: 2 mg Morphine Sulfate (Morphine Ir) 15 mg GT Q6H PRN PRN Reason: MOD/SEVERE PAIN Stop: 12/12/17 13:45 Pantoprazole Sodium (Protonix) 40 mg IVP DAILY [facility] Stop: 12/14/17 08:59 Last Admin: 10/15/17 09:22 Dose: 40 mg General: no acute distress, well developed, well nourished HEENT: PERRLA, EOMI, moist mucous membrane, other (depressed right sided scalp) Neck: supple, tracheostomy, no thyromegaly Cardiovascular: S1S2, regular Lungs: clear to percussion, rhonchi Abdomen: soft, bowel sounds, no tender, no distended, no mass, no hepatomegaly Extremities: no cyanosis, no clubbing, no edema Skin: intact - Procedures Procedures: Procedures Procedure Code Date RESPIRATORY VENTILATION, 24-96 CONSECUTIVE HOURS [id number] 10/13/17 Infectious Disease Assmt/Plan - Assessment Assessment: 1. Pneumonia. 2. G-tube malfunction. 3. New J-tube placement. 4. Vent dependent respiratory failure. 5. Vegetative status. - Plan Plan: CPM. Antibiotics vanco iv and zosyn. Nutritional Asmnt/Malnutr-PDOC - Dietary Evaluation Malnutrition Findings (Please click <Entered> for more info): Nutritional Asmnt/Malnutrition Start: 10/13/17 15: 20 Text: Status: Complete Freq: Protocol: Document 10/13/17 15:21 [email or web address] (Rec: 10/13/17 15:42 [email or web address] [id number]) Nutritional Asmnt/Malnutrition Patient General Information Nutritional Screening High Risk Diagnosis hyponatremia, J tube placement Pertinent Medical Hx/Surgical Hx CVA/TIA, ESRD, dementia, PEG/ Gtube, trach Subjective Information Pt seen on vent via trach. Per RN, no nutrition plan at this time from MD. pt is on NPO status. Current Diet Order/ Nutrition Support no diet order. Pertinent Medications vit C, Iron, piperacillin, nacl 0.9%, vancomycin Pertinent Labs 6/5 Na 129, cl 89, Cr 0.4 Nutritional Hx/Data Height 1.6 m Height (Calculated Centimeters) 160.0 Current Weight (lbs) 50.349 kg Weight (Calculated Kilograms) 50.3 Weight (Calculated Grams) 72029.8 [place] Body Weight 115 Body Mass Index (BMI) 19.6 Weight Status Approriate GI Symptoms GI Symptoms None Last BM not indicated Difficult in: None Skin Integrity/Comment: intact Estimated Nutritional Goals BEE in Kcals: Using Current wt Calories/Kcals/Kg 25-30 Kcals Calculated 3547-3232 Protein: Using Current wt Protein g/k-1.2 Protein Calculated 50-60 Fluid: ml 1250-1500ml (1ml/kcal) Nutritional Problem 2. Problem Problem inadequate energy intake Etiology J tube malfunction Signs/Symptoms: nutrition support not initiated 1. Problem Problem altered nutrition labs Etiology electrolytes imbalance Signs/Symptoms: Na 129 Malnutrition Alert Is there a minimum of two criteria No selected? Query Text:Check all the applicable criteria. A minimum of two criteria are recommended for diagnosis of either severe or non-severe malnutrition. Malnutrition Related to Morbid Obesity Malnutrition related to morbid obesity No Intervention/Recommendation Comments 1. Monitor NPO status 2. If TF needed, recommend Fibersource HN 55m/hr x 20hr. This will provide 1320kcal, 59g protein, 891ml free water. 3. Monitor wt, skin integrity and labs 4. F/U as high risk in 2 days, 6/7 Expected Outcomes/Goals Expected Outcomes/Goals 1. Pt to meet at least 75% of nutritional needs. 2. Wt stability, skin to remain intact, labs to approach WNL.
[2017-10-16] MEDS: Albuterol Nebulizer 2.5mg/3mL HHN SCH ×6 (02:46→22:48)
[2017-10-16] MEDS ORDERED: Piperacillin Sodium/Tazobact 3.375 gm Vial IV ONE (04:13)
[2017-10-16 06:56] LABS: % BASOPHILS 0.5 % (0.0-2.0); % LYMPHOCYTES 20.8 % (20.0-50.0); % NEUTROPHILS 65.7 % (40.0-80.0); EOSINOPHILE ABSOLUTE 0.1 Th/cmm (0.1-0.4); LYMPHOCYTE ABSOLUTE 1.8 Th/cmm (1.5-3.0); MEAN CORPUSCULAR HEMOGLOBIN 25.8 pg (27.0-31.0); MEAN CORPUSCULAR HGB CONC 32.6 pg (28.0-36.0); MEAN PLATELET VOLUME 7.4 fl; MONOCYTE ABSOLUTE 1.1 Th/cmm (0.3-1.0); NEUTROPHILE ABSOLUTE 5.8 Th/cmm (1.8-8.0); PLATELET COUNT 396 Th/cmm (150-400); RED BLOOD COUNT 2.66 Mil/cmm (3.80-5.20); RED CELL DISTRIBUTION WIDTH 21.3 % (11.5-20.0); WHITE BLOOD COUNT 8.8 Th/cmm (4.8-10.8)
[2017-10-16 07:03] LABS: HEMOGLOBIN 6.9 gm/dL (12-16)
[2017-10-16 07:08] LABS: ANION GAP 8.4 (7.0-16.0); BUN - UREA NITROGEN 10 mg/dL (7-25); CALCIUM SERUM 8.1 mg/dL (8.6-10.3); CARBON DIOXIDE 25.8 mEq/L (21.0-31.0); CHLORIDE 103 mEq/L (98-107); CREATININE - SERUM 0.5 mg/dL (0.6-1.2); GLUCOSE 122 mg/dL (70-105); POTASSIUM SERUM 3.2 mEq/L (3.5-5.1); SODIUM SERUM 134 mEq/L (136-145)
[2017-10-16] MEDS: Chlorhexidine Gluconate 0.12% 15mL Mouthwash MM SCH ×2 (07:58→20:15)
[2017-10-16] MEDS: Morphine Sulfate 4 mg/mL 1mL Syr IVP PRN ×3 (07:58→20:28)
[2017-10-16] MEDS: Multivitamin w/ Minerals Tab GT SCH (08:01)
[2017-10-16] MEDS: Ferrous Sulfate 300 MG/5 ML UDC GT SCH (08:01)
[2017-10-16] MEDS: Lactobacillus Rhamnosus GG 15 Billion CFU CAP.SPRINK PO SCH (08:01)
--- NOTE | 2017-10-16 11:19 | GI Progress Note ---
Subjective - Review of Systems Service Date: 10/16/17 Events since last encounter: Drop in Hgb No overt bleeding Subjective: Non verbal Objective - Results Result Diagrams: 10/16/17 06:30 10/16/17 06:30 Recent Labs: Laboratory Last Values WBC 8.8 Th/cmm (4.8-10.8) 10/16/17 06:30 RBC 2.66 Mil/cmm (3.80-5.20) L 10/16/17 06:30 Hgb 6.9 gm/dL (12-16) L* 10/16/17 06:30 Hct 21.0 % (41.0-60) L 10/16/17 06:30 MCV 79.0 fl (81-100) L 10/16/17 06:30 MCH 25.8 pg (27.0-31.0) L 10/16/17 06:30 MCHC Differential 32.6 pg (28.0-36.0) 10/16/17 06:30 RDW 21.3 % (11.5-20.0) H 10/16/17 06:30 Plt Count 396 Th/cmm (150-400) 10/16/17 06:30 MPV 7.4 fl 10/16/17 06:30 Neutrophils % 65.7 % (40.0-80.0) 10/16/17 06:30 Lymphocytes % 20.8 % (20.0-50.0) 10/16/17 06:30 Monocytes % 12.0 % (2.0-10.0) H 10/16/17 06:30 Eosinophils % 1.0 % (0.0-5.0) 10/16/17 06:30 Basophils % 0.5 % (0.0-2.0) 10/16/17 06:30 Sodium 134 mEq/L (136-145) L 10/16/17 06:30 Potassium 3.2 mEq/L (3.5-5.1) L 10/16/17 06:30 Chloride 103 mEq/L (98-107) 10/16/17 06:30 Carbon Dioxide 25.8 mEq/L (21.0-31.0) 10/16/17 06:30 Anion Gap 8.4 (7.0-16.0) 10/16/17 06:30 BUN 10 mg/dL (7-25) 10/16/17 06:30 Creatinine 0.5 mg/dL (0.6-1.2) L 10/16/17 06:30 Est GFR ( Amer) TNP 10/16/17 06:30 Est GFR (Non-Af Amer) TNP 10/16/17 06:30 BUN/Creatinine Ratio 20.0 10/16/17 06:30 Glucose 122 mg/dL (70-105) H 10/16/17 06:30 POC Glucose 106 MG/DL (70 - 105) H 10/13/17 09:54 Whole Bld Lactic Acid 1.49 mmol/L (0.60-1.99) 10/13/17 09:35 Calcium 8.1 mg/dL (8.6-10.3) L 10/16/17 06:30 Total Bilirubin 0.6 mg/dL (0.3-1.0) 10/14/17 04:20 AST 15 U/L (13-39) 10/14/17 04:20 ALT 9 U/L (7-52) 10/14/17 04:20 Alkaline Phosphatase 91 U/L (34-104) 10/14/17 04:20 Total Protein 7.7 gm/dL (6.0-8.3) 10/14/17 04:20 Albumin 2.5 gm/dL (3.7-5.3) L 10/14/17 04:20 Globulin 5.2 gm/dL 10/14/17 04:20 Albumin/Globulin Ratio 0.5 (1.0-1.8) L 10/14/17 04:20 Urine Source CATH 10/14/17 19:00 Urine Color YELLOW 10/14/17 19:00 Urine Clarity CLOUDY (CLEAR) H 10/14/17 19:00 Urine pH 7.0 (4.6 - 8.0) 10/14/17 19:00 Ur Specific [place] 1.015 (1.005-1.030) 10/14/17 19:00 Urine Protein 30 mg/dL (NEGATIVE) H 10/14/17 19:00 Urine Glucose (UA) NEGATIVE mg/dL (NEGATIVE) 10/14/17 19:00 Urine Ketones NEGATIVE mg/dL (NEGATIVE) 10/14/17 19:00 Urine Blood MODERATE (NEGATIVE) H 10/14/17 19:00 Urine Nitrate NEGATIVE (NEGATIVE) 10/14/17 19:00 Urine Bilirubin NEGATIVE (NEGATIVE) 10/14/17 19:00 Urine Urobilinogen 0.2 E.U./dL (0.2 - 1.0) 10/14/17 19:00 Ur Leukocyte Esterase LARGE (NEGATIVE) H 10/14/17 19:00 Urine RBC 5-10 /hpf (0-5) H 10/14/17 19:00 Urine WBC >100 /hpf (0-5) H 10/14/17 19:00 Ur Epithelial Cells FEW /lpf (FEW) 10/14/17 19:00 Urine Bacteria MODERATE /hpf (NONE SEEN) H 10/14/17 19:00 Vancomycin Trough 10.6 ug/mL (5-10) H 10/16/17 06:30 Blood Type O POSITIVE 10/16/17 06:30 Antibody Screen NEGATIVE 10/16/17 06:30 Crossmatch See Detail 10/16/17 06:30 - Physical Exam Vitals and I&O: Vital Signs Temp 98.4 F 10/16/17 08:00 Pulse 67 10/16/17 10:25 Resp 29 10/16/17 10:00 BP 134/75 10/16/17 10:00 Pulse Ox 98 10/16/17 10:25 Intake & Output 10/15/17 10/16/17 10/16/17 18:59 06:59 18:59 Intake Total 1150 1487.5 Output Total 1500 600 Balance -350 887.5 Weight (lbs) 51.256 kg 51.71 kg Intake: Intake, IV Amount 450 1137.5 KCL 20mEq/100mL Premix 20 100 meq In 100 ml @ 50 mls/ hr IV Q2H [facility] Rx#: [id number] Piperacillin Sodium/ 100 100 Tazobact 3.375 gm In Sodium Chloride 0.9% 50 ml @ 100 mls/hr IV Q8HR [facility] Rx#:[id number] Sodium Chloride 0.9% 1, 787.5 000 ml @ 50 mls/hr IV . Q20H [facility] Rx#:[id number] Vancomycin HCl 0.75 gm In 250 250 Sodium Chloride 0.9% 250 ml @ 165 mls/hr IV Q12H [facility] Rx#:[id number] Tube Feeding 600 300 Other 100 50 Output: Urine 1500 600 Other: # Bowel Movements 1 Stool Characteristics Liquid Liquid Green Green Weight Source Bedscale Bedscale Active Medications: Current Medications Acetaminophen (Tylenol 650mg/20.3ml Suspension) 650 mg GT Q4HR PRN PRN Reason: Mild Pain or Fever >101 Stop: 12/12/17 13:45 Last Admin: 10/13/17 17:59 Dose: 650 mg Albuterol Sulfate (Albuterol 2.5mg/3ml Neb Ud) 2.5 mg HHN Q3H PRN PRN Reason: SOB/WHEEZING/RESPIRATORY DISTR Stop: 12/12/17 13:45 Albuterol Sulfate (Albuterol 2.5mg/3ml Neb Ud) 2.5 mg HHN Q4HRT [facility] Stop: 12/12/17 18:59 Last Admin: 10/16/17 10:25 Dose: 2.5 mg Ascorbic Acid (Vitamin C) 500 mg PO DAILY [facility] Stop: 12/13/17 08:59 Last Admin: 10/16/17 08:01 Dose: 500 mg Chlorhexidine Gluconate (Peridex) 15 ml MM 0800,1999 [facility] Stop: 12/12/17 19:59 Last Admin: 10/16/17 07:58 Dose: 15 ml Dextrose (D50w) 50 ml IVP PRN PRN PRN Reason: B.S > 60 MG/DL Stop: 12/12/17 08:04 Enalaprilat (Vasotec) 1.25 mg IVP Q4HR PRN PRN Reason: SBP ABOVE 160 MMHG Stop: 12/12/17 08:58 Last Admin: 10/13/17 09:30 Dose: 1.25 mg Ferrous Sulfate (Iron) 450 mg GT DAILY [facility] Stop: 12/13/17 08:59 Last Admin: 10/16/17 08:01 Dose: 450 mg Piperacillin Sod/Tazobactam (Sod 3.375 gm/ Sodium Chloride) 50 mls @ 100 mls/ hr IV Q8HR [facility] Stop: 12/12/17 08:01 Last Infusion: 10/16/17 05:07 Dose: Infused Vancomycin HCl 0.75 gm/ Sodium (Chloride) 250 mls @ 165 mls/hr IV Q12H [facility] Stop: 12/14/17 08:59 Last Admin: 10/16/17 09:53 Dose: 165 mls/hr Sodium Chloride (Nacl 0.9%) 1,000 mls @ 50 mls/hr IV .Q20H [facility] Stop: 12/14/17 13:29 Last Infusion: 10/16/17 06:00 Dose: 50 mls/hr Lactobacillus Rhamnosus (Culturelle 15b) 1 each PO DAILY [facility] Stop: 12/13/17 13:59 Last Admin: 10/16/17 08:01 Dose: 1 each Levetiracetam (Keppra) 250 mg PO Q12H [facility] Stop: 12/12/17 13:59 Last Admin: 10/16/17 02:03 Dose: 250 mg Lorazepam (Ativan) 0.5 mg GT Q6H PRN; Protocol PRN Reason: Anxiety Stop: 12/12/17 13:45 Miscellaneous (Vancomycin Iv Per Pharmacy) 1 ea PRN PRN PRN Reason: PROTOCOL Stop: 12/12/17 08:00 Miscellaneous (Vte Chemical Prophylaxis Screen/ Admission) 1 ea PRN PRN PRN Reason: PROTOCOL Stop: 12/13/17 10:44 Miscellaneous (Probiotic Screen) 1 ea PRN PRN PRN Reason: PROTOCOL Stop: 12/13/17 12:03 Morphine Sulfate (Morphine) 1 mg IVP Q4HR PRN PRN Reason: Pain (Moderate) Stop: 12/12/17 09:34 Last Admin: 10/16/17 07:58 Dose: 1 mg Morphine Sulfate (Morphine) 2 mg IVP Q4HR PRN PRN Reason: Pain (Severe) Stop: 12/12/17 09:35 Last Admin: 10/15/17 20:09 Dose: 2 mg Morphine Sulfate (Morphine Ir) 15 mg GT Q6H PRN PRN Reason: MOD/SEVERE PAIN Stop: 12/12/17 13:45 Pantoprazole Sodium (Protonix) 40 mg IVP DAILY [facility] Stop: 12/14/17 08:59 Last Admin: 10/16/17 08:01 Dose: 40 mg General: Mild distress, Other (Evidence of R craniotomy) HEENT: Other (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 Anemia 2. Malfunctioning G tube 3. Dysphagia - Plan Plan: 1. Anemia no evidence of GI bleeding Transfuse Watch for GI bleeding 2. Malfunctioning G tube S/P change 3. Dysphagia Cont feeding
--- NOTE | 2017-10-16 11:46 | Internal Medicine Prog Note ---
Internal Medicine Subjective - Subjective Service Date: 10/16/17 Patient seen and examined:: with staff Patient is:: other (obtunded) Internal Medicine Objective - Results Result Diagrams: 10/16/17 06:30 10/16/17 06:30 Recent Labs: Laboratory Last Values WBC 8.8 Th/cmm (4.8-10.8) 10/16/17 06:30 RBC 2.66 Mil/cmm (3.80-5.20) L 10/16/17 06:30 Hgb 6.9 gm/dL (12-16) L* 10/16/17 06:30 Hct 21.0 % (41.0-60) L 10/16/17 06:30 MCV 79.0 fl (81-100) L 10/16/17 06:30 MCH 25.8 pg (27.0-31.0) L 10/16/17 06:30 MCHC Differential 32.6 pg (28.0-36.0) 10/16/17 06:30 RDW 21.3 % (11.5-20.0) H 10/16/17 06:30 Plt Count 396 Th/cmm (150-400) 10/16/17 06:30 MPV 7.4 fl 10/16/17 06:30 Neutrophils % 65.7 % (40.0-80.0) 10/16/17 06:30 Lymphocytes % 20.8 % (20.0-50.0) 10/16/17 06:30 Monocytes % 12.0 % (2.0-10.0) H 10/16/17 06:30 Eosinophils % 1.0 % (0.0-5.0) 10/16/17 06:30 Basophils % 0.5 % (0.0-2.0) 10/16/17 06:30 Sodium 134 mEq/L (136-145) L 10/16/17 06:30 Potassium 3.2 mEq/L (3.5-5.1) L 10/16/17 06:30 Chloride 103 mEq/L (98-107) 10/16/17 06:30 Carbon Dioxide 25.8 mEq/L (21.0-31.0) 10/16/17 06:30 Anion Gap 8.4 (7.0-16.0) 10/16/17 06:30 BUN 10 mg/dL (7-25) 10/16/17 06:30 Creatinine 0.5 mg/dL (0.6-1.2) L 10/16/17 06:30 Est GFR ( Amer) TNP 10/16/17 06:30 Est GFR (Non-Af Amer) TNP 10/16/17 06:30 BUN/Creatinine Ratio 20.0 10/16/17 06:30 Glucose 122 mg/dL (70-105) H 10/16/17 06:30 POC Glucose 106 MG/DL (70 - 105) H 10/13/17 09:54 Whole Bld Lactic Acid 1.49 mmol/L (0.60-1.99) 10/13/17 09:35 Calcium 8.1 mg/dL (8.6-10.3) L 10/16/17 06:30 Total Bilirubin 0.6 mg/dL (0.3-1.0) 10/14/17 04:20 AST 15 U/L (13-39) 10/14/17 04:20 ALT 9 U/L (7-52) 10/14/17 04:20 Alkaline Phosphatase 91 U/L (34-104) 10/14/17 04:20 Total Protein 7.7 gm/dL (6.0-8.3) 10/14/17 04:20 Albumin 2.5 gm/dL (3.7-5.3) L 10/14/17 04:20 Globulin 5.2 gm/dL 10/14/17 04:20 Albumin/Globulin Ratio 0.5 (1.0-1.8) L 10/14/17 04:20 Urine Source CATH 10/14/17 19:00 Urine Color YELLOW 10/14/17 19:00 Urine Clarity CLOUDY (CLEAR) H 10/14/17 19:00 Urine pH 7.0 (4.6 - 8.0) 10/14/17 19:00 Ur Specific [place] 1.015 (1.005-1.030) 10/14/17 19:00 Urine Protein 30 mg/dL (NEGATIVE) H 10/14/17 19:00 Urine Glucose (UA) NEGATIVE mg/dL (NEGATIVE) 10/14/17 19:00 Urine Ketones NEGATIVE mg/dL (NEGATIVE) 10/14/17 19:00 Urine Blood MODERATE (NEGATIVE) H 10/14/17 19:00 Urine Nitrate NEGATIVE (NEGATIVE) 10/14/17 19:00 Urine Bilirubin NEGATIVE (NEGATIVE) 10/14/17 19:00 Urine Urobilinogen 0.2 E.U./dL (0.2 - 1.0) 10/14/17 19:00 Ur Leukocyte Esterase LARGE (NEGATIVE) H 10/14/17 19:00 Urine RBC 5-10 /hpf (0-5) H 10/14/17 19:00 Urine WBC >100 /hpf (0-5) H 10/14/17 19:00 Ur Epithelial Cells FEW /lpf (FEW) 10/14/17 19:00 Urine Bacteria MODERATE /hpf (NONE SEEN) H 10/14/17 19:00 Vancomycin Trough 10.6 ug/mL (5-10) H 10/16/17 06:30 Blood Type O POSITIVE 10/16/17 06:30 Antibody Screen NEGATIVE 10/16/17 06:30 Crossmatch See Detail 10/16/17 06:30 - Physical Exam Vitals and I&O: Vital Signs Temp 98.4 F 10/16/17 08:00 Pulse 67 10/16/17 10:25 Resp 29 10/16/17 10:00 BP 134/75 10/16/17 10:00 Pulse Ox 98 10/16/17 10:25 Intake & Output 10/15/17 10/16/17 10/16/17 18:59 06:59 18:59 Intake Total 1150 1487.5 Output Total 1500 600 Balance -350 887.5 Weight (lbs) 113 lb 114 lb Intake: Intake, IV Amount 450 1137.5 KCL 20mEq/100mL Premix 20 100 meq In 100 ml @ 50 mls/ hr IV Q2H [facility] Rx#: [id number] Piperacillin Sodium/ 100 100 Tazobact 3.375 gm In Sodium Chloride 0.9% 50 ml @ 100 mls/hr IV Q8HR [facility] Rx#:[id number] Sodium Chloride 0.9% 1, 787.5 000 ml @ 50 mls/hr IV . Q20H [facility] Rx#:[id number] Vancomycin HCl 0.75 gm In 250 250 Sodium Chloride 0.9% 250 ml @ 165 mls/hr IV Q12H [facility] Rx#:[id number] Tube Feeding 600 300 Other 100 50 Output: Urine 1500 600 Other: # Bowel Movements 1 Stool Characteristics Liquid Liquid Green Green Weight Source Bedscale Bedscale Active Medications: Current Medications Acetaminophen (Tylenol 650mg/20.3ml Suspension) 650 mg GT Q4HR PRN PRN Reason: Mild Pain or Fever >101 Stop: 12/12/17 13:45 Last Admin: 10/13/17 17:59 Dose: 650 mg Albuterol Sulfate (Albuterol 2.5mg/3ml Neb Ud) 2.5 mg HHN Q3H PRN PRN Reason: SOB/WHEEZING/RESPIRATORY DISTR Stop: 12/12/17 13:45 Albuterol Sulfate (Albuterol 2.5mg/3ml Neb Ud) 2.5 mg HHN Q4HRT [facility] Stop: 12/12/17 18:59 Last Admin: 10/16/17 10:25 Dose: 2.5 mg Ascorbic Acid (Vitamin C) 500 mg PO DAILY [facility] Stop: 12/13/17 08:59 Last Admin: 10/16/17 08:01 Dose: 500 mg Chlorhexidine Gluconate (Peridex) 15 ml MM 0800,1999 [facility] Stop: 12/12/17 19:59 Last Admin: 10/16/17 07:58 Dose: 15 ml Dextrose (D50w) 50 ml IVP PRN PRN PRN Reason: B.S > 60 MG/DL Stop: 12/12/17 08:04 Enalaprilat (Vasotec) 1.25 mg IVP Q4HR PRN PRN Reason: SBP ABOVE 160 MMHG Stop: 12/12/17 08:58 Last Admin: 10/13/17 09:30 Dose: 1.25 mg Ferrous Sulfate (Iron) 450 mg GT DAILY [facility] Stop: 12/13/17 08:59 Last Admin: 10/16/17 08:01 Dose: 450 mg Piperacillin Sod/Tazobactam (Sod 3.375 gm/ Sodium Chloride) 50 mls @ 100 mls/ hr IV Q8HR [facility] Stop: 12/12/17 08:01 Last Infusion: 10/16/17 05:07 Dose: Infused Vancomycin HCl 0.75 gm/ Sodium (Chloride) 250 mls @ 165 mls/hr IV Q12H [facility] Stop: 12/14/17 08:59 Last Admin: 10/16/17 09:53 Dose: 165 mls/hr Sodium Chloride (Nacl 0.9%) 1,000 mls @ 50 mls/hr IV .Q20H [facility] Stop: 12/14/17 13:29 Last Infusion: 10/16/17 06:00 Dose: 50 mls/hr Lactobacillus Rhamnosus (Culturelle 15b) 1 each PO DAILY [facility] Stop: 12/13/17 13:59 Last Admin: 10/16/17 08:01 Dose: 1 each Levetiracetam (Keppra) 250 mg PO Q12H [facility] Stop: 12/12/17 13:59 Last Admin: 10/16/17 02:03 Dose: 250 mg Lorazepam (Ativan) 0.5 mg GT Q6H PRN; Protocol PRN Reason: Anxiety Stop: 12/12/17 13:45 Miscellaneous (Vancomycin Iv Per Pharmacy) 1 ea PRN PRN PRN Reason: PROTOCOL Stop: 12/12/17 08:00 Miscellaneous (Vte Chemical Prophylaxis Screen/ Admission) 1 [facility] PRN PRN PRN Reason: PROTOCOL Stop: 12/13/17 10:44 Miscellaneous (Probiotic Screen) 1 ea PRN PRN PRN Reason: PROTOCOL Stop: 12/13/17 12:03 Morphine Sulfate (Morphine) 1 mg IVP Q4HR PRN PRN Reason: Pain (Moderate) Stop: 12/12/17 09:34 Last Admin: 10/16/17 07:58 Dose: 1 mg Morphine Sulfate (Morphine) 2 mg IVP Q4HR PRN PRN Reason: Pain (Severe) Stop: 12/12/17 09:35 Last Admin: 10/15/17 20:09 Dose: 2 mg Morphine Sulfate (Morphine Ir) 15 mg GT Q6H PRN PRN Reason: MOD/SEVERE PAIN Stop: 12/12/17 13:45 Pantoprazole Sodium (Protonix) 40 mg IVP DAILY [facility] Stop: 12/14/17 08:59 Last Admin: 10/16/17 08:01 Dose: 40 mg General: weak HEENT: NC/AT, PERRLA Neck: Supple Lungs: ronchi Cardiovascular: without murmur Abdomen: soft, non-tender, non-distended, +GT Neurological: unable to follow command, bedbound - Procedures Procedures: Procedures Procedure Code Date RESPIRATORY VENTILATION, 24-96 CONSECUTIVE HOURS [id number] 10/13/17 Internal Medicine Assmt/Plan - Assessment Assessment: Anemia-requiring transfusion Hypokalemia Pneumonia. G-tube malfunction s/p jtube replacement VDRF Chronic respiratory failure Persistent Vegetative state. - Plan Plan: monitor h/h monitor potassium nephro consultation cbc/bmp in am continue current plan of care Nutritional Asmnt/Malnutr-PDOC - Dietary Evaluation Malnutrition Findings (Please click <Entered> for more info): Nutritional Asmnt/Malnutrition Start: 10/13/17 15: 20 Text: Status: Complete Freq: Protocol: Document 10/13/17 15:21 LCHENG (Rec: 10/13/17 15:42 [email or web address] [id number]) Nutritional Asmnt/Malnutrition Patient General Information Nutritional Screening High Risk Diagnosis hyponatremia, J tube placement Pertinent Medical Hx/Surgical Hx CVA/TIA, ESRD, dementia, PEG/ Gtube, trach Subjective Information Pt seen on vent via trach. Per RN, no nutrition plan at this time from MD. pt is on NPO status. Current Diet Order/ Nutrition Support no diet order. Pertinent Medications vit C, Iron, piperacillin, nacl 0.9%, vancomycin Pertinent Labs 10/13 Na 129, cl 89, Cr 0.4 Nutritional Hx/Data Height 5 ft 3 in Height (Calculated Centimeters) 160.0 Current Weight (lbs) 111 lb Weight (Calculated Kilograms) 50.3 Weight (Calculated Grams) 23311.8 [place] Body Weight 115 Body Mass Index (BMI) 19.6 Weight Status Approriate GI Symptoms GI Symptoms None Last BM not indicated Difficult in: None Skin Integrity/Comment: intact Estimated Nutritional Goals BEE in Kcals: Using Current wt Calories/Kcals/Kg 25-30 Kcals Calculated 4769-7422 Protein: Using Current wt Protein g/k-1.2 Protein Calculated 50-60 Fluid: ml 1250-1500ml (1ml/kcal) Nutritional Problem 2. Problem Problem inadequate energy intake Etiology J tube malfunction Signs/Symptoms: nutrition support not initiated 1. Problem Problem altered nutrition labs Etiology electrolytes imbalance Signs/Symptoms: Na 129 Malnutrition Alert Is there a minimum of two criteria No selected? Query Text:Check all the applicable criteria. A minimum of two criteria are recommended for diagnosis of either severe or non-severe malnutrition. Malnutrition Related to Morbid Obesity Malnutrition related to morbid obesity No Intervention/Recommendation Comments 1. Monitor NPO status 2. If TF needed, recommend Fibersource HN 55m/hr x 20hr. This will provide 1320kcal, 59g protein, 891ml free water. 3. Monitor wt, skin integrity and labs 4. F/U as high risk in 2 days, 6/7 Expected Outcomes/Goals Expected Outcomes/Goals 1. Pt to meet at least 75% of nutritional needs. 2. Wt stability, skin to remain intact, labs to approach WNL.
[2017-10-16] MEDS ORDERED: 0.9% NS w/20 mEq KCL 1,000 ML IV SCH (15:00)
[2017-10-16 16:44] LABS: URINE MICROSCOPIC INDICATED? YES; URINE SOURCE FOLEY PORT
[2017-10-16 16:47] LABS: URINE BILIRUBIN NEGATIVE (NEGATIVE); URINE BLOOD TRACE (NEGATIVE); URINE GLUCOSE (UA) NEGATIVE (NEGATIVE); URINE KETONE NEGATIVE (NEGATIVE); URINE LEUKOCYTE ESTERASE NEGATIVE (NEGATIVE); URINE NITRATE NEGATIVE (NEGATIVE); URINE PH 7.5 (4.6 - 8.0); URINE PROTEIN 30 mg/dL (NEGATIVE)
[2017-10-16 16:50] LABS: URINE COLOR YELLOW
[2017-10-16 16:59] LABS: URINE CLARITY SLIGHTLY HAZY (CLEAR)
[2017-10-16 17:03] LABS: URINE BACTERIA FEW /hpf (NONE SEEN); URINE EPITHELIAL CELLS RARE /lpf (FEW)
[2017-10-17] MEDS: Morphine Sulfate 4 mg/mL 1mL Syr IVP PRN ×4 (01:25→19:20)
[2017-10-17] MEDS: Albuterol Nebulizer 2.5mg/3mL HHN SCH ×6 (03:10→22:42)
[2017-10-17 04:44] LABS: % BASOPHILS 0.6 % (0.0-2.0); % EOSINOPHILS 2.9 % (0.0-5.0); % LYMPHOCYTES 23.3 % (20.0-50.0); % MONOCYTES 11.7 % (2.0-10.0); % NEUTROPHILS 61.5 % (40.0-80.0); BASOPHILE ABSOLUTE 0.1 Th/cumm (0-0.2); EOSINOPHILE ABSOLUTE 0.3 Th/cmm (0.1-0.4); HEMOGLOBIN 9.5 gm/dL (12-16); LYMPHOCYTE ABSOLUTE 2.1 Th/cmm (1.5-3.0); MEAN CELL VOLUME 82.2 fl (81-100); MEAN CORPUSCULAR HEMOGLOBIN 26.8 pg (27.0-31.0); MEAN CORPUSCULAR HGB CONC 32.5 pg (28.0-36.0); MEAN PLATELET VOLUME 7.4 fl; MONOCYTE ABSOLUTE 1.1 Th/cmm (0.3-1.0); NEUTROPHILE ABSOLUTE 5.6 Th/cmm (1.8-8.0); PLATELET COUNT 421 Th/cmm (150-400); RED BLOOD COUNT 3.54 Mil/cmm (3.80-5.20); RED CELL DISTRIBUTION WIDTH 19.6 % (11.5-20.0); WHITE BLOOD COUNT 9.2 Th/cmm (4.8-10.8)
[2017-10-17 04:46] LABS: HEMATOCRIT 29.1 % (41.0-60)
[2017-10-17 05:28] LABS: ANION GAP 8.8 (7.0-16.0); BUN - UREA NITROGEN 11 mg/dL (7-25); CALCIUM SERUM 8.4 mg/dL (8.6-10.3); CHLORIDE 103 mEq/L (98-107); CREATININE - SERUM 0.5 mg/dL (0.6-1.2); GLUCOSE 112 mg/dL (70-105); MAGNESIUM 1.9 mg/dL (1.9-2.7); POTASSIUM SERUM 3.8 mEq/L (3.5-5.1); SODIUM SERUM 132 mEq/L (136-145)
[2017-10-17] MEDS: Lactobacillus Rhamnosus GG 15 Billion CFU CAP.SPRINK PO SCH (08:26)
[2017-10-17] MEDS: Ferrous Sulfate 300 MG/5 ML UDC GT SCH (08:26)
[2017-10-17] MEDS: Multivitamin w/ Minerals Tab GT SCH (08:27)
[2017-10-17] MEDS: Chlorhexidine Gluconate 0.12% 15mL Mouthwash MM SCH ×2 (08:37→20:30)
--- NOTE | 2017-10-17 08:56 | GI Progress Note ---
Subjective - Review of Systems Subjective: NO GI BLEEDING PER STAFF G TUBE RESIDUALS ARE MINIMAL AND WITHOUT BLOOD Objective - Results Result Diagrams: 10/17/17 04:30 10/17/17 04:30 Recent Labs: Laboratory Last Values WBC 9.2 Th/cmm (4.8-10.8) 10/17/17 04:30 RBC 3.54 Mil/cmm (3.80-5.20) L 10/17/17 04:30 Hgb 9.5 gm/dL (12-16) L 10/17/17 04:30 Hct 29.1 % (41.0-60) L D 10/17/17 04:30 MCV 82.2 fl (81-100) 10/17/17 04:30 MCH 26.8 pg (27.0-31.0) L 10/17/17 04:30 MCHC Differential 32.5 pg (28.0-36.0) 10/17/17 04:30 RDW 19.6 % (11.5-20.0) 10/17/17 04:30 Plt Count 421 Th/cmm (150-400) H 10/17/17 04:30 MPV 7.4 fl 10/17/17 04:30 Neutrophils % 61.5 % (40.0-80.0) 10/17/17 04:30 Lymphocytes % 23.3 % (20.0-50.0) 10/17/17 04:30 Monocytes % 11.7 % (2.0-10.0) H 10/17/17 04:30 Eosinophils % 2.9 % (0.0-5.0) 10/17/17 04:30 Basophils % 0.6 % (0.0-2.0) 10/17/17 04:30 Sodium 132 mEq/L (136-145) L 10/17/17 04:30 Potassium 3.8 mEq/L (3.5-5.1) 10/17/17 04:30 Chloride 103 mEq/L (98-107) 10/17/17 04:30 Carbon Dioxide 24.0 mEq/L (21.0-31.0) 10/17/17 04:30 Anion Gap 8.8 (7.0-16.0) 10/17/17 04:30 BUN 11 mg/dL (7-25) 10/17/17 04:30 Creatinine 0.5 mg/dL (0.6-1.2) L 10/17/17 04:30 Est GFR ( Amer) TNP 10/17/17 04:30 Est GFR (Non-Af Amer) TNP 10/17/17 04:30 BUN/Creatinine Ratio 22.0 10/17/17 04:30 Glucose 112 mg/dL (70-105) H 10/17/17 04:30 POC Glucose 106 MG/DL (70 - 105) H 10/13/17 09:54 Whole Bld Lactic Acid 1.49 mmol/L (0.60-1.99) 10/13/17 09:35 Calcium 8.4 mg/dL (8.6-10.3) L 10/17/17 04:30 Magnesium 1.9 mg/dL (1.9-2.7) 10/17/17 04:30 Total Bilirubin 0.6 mg/dL (0.3-1.0) 10/14/17 04:20 AST 15 U/L (13-39) 10/14/17 04:20 ALT 9 U/L (7-52) 10/14/17 04:20 Alkaline Phosphatase 91 U/L (34-104) 10/14/17 04:20 B-Natriuretic Peptide 429.0 pg/mL (5.0-100.0) H 10/17/17 04:30 Total Protein 7.7 gm/dL (6.0-8.3) 10/14/17 04:20 Albumin 2.5 gm/dL (3.7-5.3) L 10/14/17 04:20 Globulin 5.2 gm/dL 10/14/17 04:20 Albumin/Globulin Ratio 0.5 (1.0-1.8) L 10/14/17 04:20 Urine Source ECHOLS PORT 10/16/17 16:35 Urine Color YELLOW 10/16/17 16:35 Urine Clarity [place] (CLEAR) 10/16/17 16:35 Urine pH 7.5 (4.6 - 8.0) 10/16/17 16:35 Ur Specific [place] 1.015 (1.005-1.030) 10/16/17 16:35 Urine Protein 30 mg/dL (NEGATIVE) H 10/16/17 16:35 Urine Glucose (UA) NEGATIVE mg/dL (NEGATIVE) 10/16/17 16:35 Urine Ketones NEGATIVE mg/dL (NEGATIVE) 10/16/17 16:35 Urine Blood TRACE (NEGATIVE) 10/16/17 16:35 Urine Nitrate NEGATIVE (NEGATIVE) 10/16/17 16:35 Urine Bilirubin NEGATIVE (NEGATIVE) 10/16/17 16:35 Urine Urobilinogen 1.0 E.U./dL (0.2 - 1.0) 10/16/17 16:35 Ur Leukocyte Esterase NEGATIVE (NEGATIVE) 10/16/17 16:35 Urine RBC 5-10 /hpf (0-5) H 10/16/17 16:35 Urine WBC 6-10 /hpf (0-5) H 10/16/17 16:35 Ur Epithelial Cells RARE /lpf (FEW) 10/16/17 16:35 Urine Bacteria FEW /hpf (NONE SEEN) 10/16/17 16:35 Stool Occult Blood NEGATIVE (NEGATIVE) 10/17/17 04:20 Vancomycin Trough 10.6 ug/mL (5-10) H 10/16/17 06:30 Blood Type O POSITIVE 10/16/17 06:30 Antibody Screen NEGATIVE 10/16/17 06:30 Crossmatch See Detail 10/16/17 06:30 - Physical Exam Vitals and I&O: Vital Signs Temp 98.8 F 10/17/17 07:00 Pulse 78 10/17/17 07:17 Resp 20 10/17/17 07:00 BP 105/55 10/17/17 07:00 Pulse Ox 100 10/17/17 07:17 Intake & Output 10/16/17 10/17/17 10/17/17 18:59 06:59 18:59 Intake Total 1400 1010 Output Total 350 1000 Balance 1050 10 Weight (lbs) 51.71 kg 51.71 kg Intake: Intake, IV Amount 300 350 Piperacillin Sodium/ 50 100 Tazobact 3.375 gm In Sodium Chloride 0.9% 50 ml @ 100 mls/hr IV Q8HR [facility] Rx#:[id number] Vancomycin HCl 0.75 gm In 250 250 Sodium Chloride 0.9% 250 ml @ 165 mls/hr IV Q12H [facility] Rx#:[id number] Tube Feeding 600 400 Blood Product 500 Other 260 Output: Urine 350 1000 Other: # Bowel Movements 1 2 Stool Characteristics Liquid Green [facility] Active Medications: Current Medications Acetaminophen (Tylenol 650mg/20.3ml Suspension) 650 mg GT Q4HR PRN PRN Reason: Mild Pain or Fever >101 Stop: 12/12/17 13:45 Last Admin: 10/13/17 17:59 Dose: 650 mg Albuterol Sulfate (Albuterol 2.5mg/3ml Neb Ud) 2.5 mg HHN Q3H PRN PRN Reason: SOB/WHEEZING/RESPIRATORY DISTR Stop: 12/12/17 13:45 Albuterol Sulfate (Albuterol 2.5mg/3ml Neb Ud) 2.5 mg HHN Q4HRT [facility] Stop: 12/12/17 18:59 Last Admin: 10/17/17 07:17 Dose: 2.5 mg Ascorbic Acid (Vitamin C) 500 mg PO DAILY [facility] Stop: 12/13/17 08:59 Last Admin: 10/17/17 08:27 Dose: 500 mg Chlorhexidine Gluconate (Peridex) 15 ml MM 0800,1999 [facility] Stop: 12/12/17 19:59 Last Admin: 10/17/17 08:37 Dose: 15 ml Dextrose (D50w) 50 ml IVP PRN PRN PRN Reason: B.S > 60 MG/DL Stop: 12/12/17 08:04 Enalaprilat (Vasotec) 1.25 mg IVP Q4HR PRN PRN Reason: SBP ABOVE 160 MMHG Stop: 12/12/17 08:58 Last Admin: 10/13/17 09:30 Dose: 1.25 mg Ferrous Sulfate (Iron) 450 mg GT DAILY [facility] Stop: 12/13/17 08:59 Last Admin: 10/17/17 08:26 Dose: 450 mg Piperacillin Sod/Tazobactam (Sod 3.375 gm/ Sodium Chloride) 50 mls @ 100 mls/ hr IV Q8HR [facility] Stop: 12/12/17 08:01 Last Infusion: 10/17/17 06:06 Dose: Infused Vancomycin HCl 0.75 gm/ Sodium (Chloride) 250 mls @ 165 mls/hr IV Q12H [facility] Stop: 12/14/17 08:59 Last Admin: 10/17/17 08:36 Dose: 165 mls/hr Potassium Chloride/Sodium Chloride (0.9% Ns W/20 Meq Kcl) 1,000 mls @ 60 mls/ hr IV .[id number] [facility] Stop: 12/15/17 14:59 Last Admin: 10/16/17 15:49 Dose: 60 mls/hr Lactobacillus Rhamnosus (Culturelle 15b) 1 each PO DAILY [facility] Stop: 12/13/17 13:59 Last Admin: 10/17/17 08:26 Dose: 1 each Levetiracetam (Keppra) 250 mg PO Q12H [facility] Stop: 12/12/17 13:59 Last Admin: 10/17/17 02:51 Dose: 250 mg Lorazepam (Ativan) 0.5 mg GT Q6H PRN; Protocol PRN Reason: Anxiety Stop: 12/12/17 13:45 Miscellaneous (Vancomycin Iv Per Pharmacy) 1 [facility] PRN PRN PRN Reason: PROTOCOL Stop: 12/12/17 08:00 Miscellaneous (Vte Chemical Prophylaxis Screen/ Admission) 1 [facility] PRN PRN PRN Reason: PROTOCOL Stop: 12/13/17 10:44 Miscellaneous (Probiotic Screen) 1 [facility] PRN PRN PRN Reason: PROTOCOL Stop: 12/13/17 12:03 Morphine Sulfate (Morphine) 1 mg IVP Q4HR PRN PRN Reason: Pain (Moderate) Stop: 12/12/17 09:34 Last Admin: 10/16/17 20:28 Dose: 1 mg Morphine Sulfate (Morphine) 2 mg IVP Q4HR PRN PRN Reason: Pain (Severe) Stop: 12/12/17 09:35 Last Admin: 10/17/17 01:25 Dose: 2 mg Morphine Sulfate (Morphine Ir) 15 mg GT Q6H PRN PRN Reason: MOD/SEVERE PAIN Stop: 12/12/17 13:45 Pantoprazole Sodium (Protonix) 40 mg IVP DAILY [facility] Stop: 12/14/17 08:59 Last Admin: 10/17/17 08:26 Dose: 40 mg General: Mild distress, Other (Evidence of R craniotomy) HEENT: Other (evidence of skull/brain surgery with major defect) Cardiovascular: Regular rate Lungs: Other (rhonchi) Abdomen: Bowel sounds, Soft, no Tender, no Hepatomegaly, no Splenomegaly, no Distended, no Rebound Skin: no Rash - Procedures Procedures: Procedures Procedure Code Date RESPIRATORY VENTILATION, 24-96 CONSECUTIVE HOURS [id number] 10/13/17 Assessment/Plan - Assessment Assessment: 82 YO FEMALE WITH DYSPHAGIA ALFREDO TUBE FEEDS STOOL OB NEG X 3 HGB BETTER 1.CONT TUBE FEEDS 2.CONT SUPP CARE
--- NOTE | 2017-10-17 09:34 | Diagnostic Imaging Report ---
CHEST X-RAY: AP view INDICATION: Shortness of breath COMPARISON: 10/15/2017 FINDINGS: Support devices are stable. Diffuse pulmonary infiltrates are seen with small effusions. Cardiomegaly is noted. IMPRESSION: Persistent diffuse pulmonary infiltrates and small effusions. Follow-up recommended. Cardiomegaly.
--- NOTE | 2017-10-17 18:09 | Progress Notes ---
DATE: 10/17/2017 SUBJECTIVE: The patient was seen in her room, lying on the bed. The patient is a poor historian due to medical condition. Otherwise, the patient appears to be in no acute distress. OBJECTIVE: VITAL SIGNS: Heart rate of 81, temperature 98.2, respirations 15, 98% saturation, blood pressure 142/76. HEENT: Head is atraumatic and normocephalic. Eyes: Bilateral conjunctivae are clear. Bilateral pupils sluggish. NECK: Supple. No JVD. The patient has a tracheostomy connected to ventilator. CARDIOVASCULAR: S1 and S2, without murmur. PULMONARY: Fine scattered rhonchi noted. GASTROINTESTINAL: Soft and nontender without guarding. Positive bowel sounds. MUSCULOSKELETAL: No clubbing. No cyanosis noted. ASSESSMENT: 1. Ventilator dependent respiratory failure. 2. Pneumonia. 3. G-tube malfunction, status post G-tube placement. 4. Anemia. 5. Dysphagia. PLAN: We will continue current treatment. We will continue to provide pulmonary support. We will continue to monitor hemoglobin and hematocrit level. We will put the patient on aspiration precaution. Treatment plans were discussed with the patient's nurse. Treatment plans were discussed with Dr. Soria. JOB# [id number]
--- NOTE | 2017-10-17 18:27 | General Progress Note ---
Subjective - Review of Systems Service Date: 10/17/17 Subjective: sleeping, comfortable Objective - Results Result Diagrams: 10/17/17 04:30 10/17/17 04:30 Recent Labs: Laboratory Last Values WBC 9.2 Th/cmm (4.8-10.8) 10/17/17 04:30 RBC 3.54 Mil/cmm (3.80-5.20) L 10/17/17 04:30 Hgb 9.5 gm/dL (12-16) L 10/17/17 04:30 Hct 29.1 % (41.0-60) L D 10/17/17 04:30 MCV 82.2 fl (81-100) 10/17/17 04:30 MCH 26.8 pg (27.0-31.0) L 10/17/17 04:30 MCHC Differential 32.5 pg (28.0-36.0) 10/17/17 04:30 RDW 19.6 % (11.5-20.0) 10/17/17 04:30 Plt Count 421 Th/cmm (150-400) H 10/17/17 04:30 MPV 7.4 fl 10/17/17 04:30 Neutrophils % 61.5 % (40.0-80.0) 10/17/17 04:30 Lymphocytes % 23.3 % (20.0-50.0) 10/17/17 04:30 Monocytes % 11.7 % (2.0-10.0) H 10/17/17 04:30 Eosinophils % 2.9 % (0.0-5.0) 10/17/17 04:30 Basophils % 0.6 % (0.0-2.0) 10/17/17 04:30 Sodium 132 mEq/L (136-145) L 10/17/17 04:30 Potassium 3.8 mEq/L (3.5-5.1) 10/17/17 04:30 Chloride 103 mEq/L (98-107) 10/17/17 04:30 Carbon Dioxide 24.0 mEq/L (21.0-31.0) 10/17/17 04:30 Anion Gap 8.8 (7.0-16.0) 10/17/17 04:30 BUN 11 mg/dL (7-25) 10/17/17 04:30 Creatinine 0.5 mg/dL (0.6-1.2) L 10/17/17 04:30 Est GFR ( Amer) TNP 10/17/17 04:30 Est GFR (Non-Af Amer) TNP 10/17/17 04:30 BUN/Creatinine Ratio 22.0 10/17/17 04:30 Glucose 112 mg/dL (70-105) H 10/17/17 04:30 POC Glucose 106 MG/DL (70 - 105) H 10/13/17 09:54 Whole Bld Lactic Acid 1.49 mmol/L (0.60-1.99) 10/13/17 09:35 Calcium 8.4 mg/dL (8.6-10.3) L 10/17/17 04:30 Magnesium 1.9 mg/dL (1.9-2.7) 10/17/17 04:30 Total Bilirubin 0.6 mg/dL (0.3-1.0) 10/14/17 04:20 AST 15 U/L (13-39) 10/14/17 04:20 ALT 9 U/L (7-52) 10/14/17 04:20 Alkaline Phosphatase 91 U/L (34-104) 10/14/17 04:20 B-Natriuretic Peptide 429.0 pg/mL (5.0-100.0) H 10/17/17 04:30 Total Protein 7.7 gm/dL (6.0-8.3) 10/14/17 04:20 Albumin 2.5 gm/dL (3.7-5.3) L 10/14/17 04:20 Globulin 5.2 gm/dL 10/14/17 04:20 Albumin/Globulin Ratio 0.5 (1.0-1.8) L 10/14/17 04:20 Urine Source ECHOLS PORT 10/16/17 16:35 Urine Color YELLOW 10/16/17 16:35 Urine Clarity SLIGHTLY HAZY (CLEAR) 10/16/17 16:35 Urine pH 7.5 (4.6 - 8.0) 10/16/17 16:35 Ur Specific [place] 1.015 (1.005-1.030) 10/16/17 16:35 Urine Protein 30 mg/dL (NEGATIVE) H 10/16/17 16:35 Urine Glucose (UA) NEGATIVE mg/dL (NEGATIVE) 10/16/17 16:35 Urine Ketones NEGATIVE mg/dL (NEGATIVE) 10/16/17 16:35 Urine Blood TRACE (NEGATIVE) 10/16/17 16:35 Urine Nitrate NEGATIVE (NEGATIVE) 10/16/17 16:35 Urine Bilirubin NEGATIVE (NEGATIVE) 10/16/17 16:35 Urine Urobilinogen 1.0 E.U./dL (0.2 - 1.0) 10/16/17 16:35 Ur Leukocyte Esterase NEGATIVE (NEGATIVE) 10/16/17 16:35 Urine RBC 5-10 /hpf (0-5) H 10/16/17 16:35 Urine WBC 6-10 /hpf (0-5) H 10/16/17 16:35 Ur Epithelial Cells RARE /lpf (FEW) 10/16/17 16:35 Urine Bacteria FEW /hpf (NONE SEEN) 10/16/17 16:35 Stool Occult Blood NEGATIVE (NEGATIVE) 10/17/17 04:20 Vancomycin Trough 10.6 ug/mL (5-10) H 10/16/17 06:30 Blood Type O POSITIVE 10/16/17 06:30 Antibody Screen NEGATIVE 10/16/17 06:30 Crossmatch See Detail 10/16/17 06:30 - Physical Exam Vitals and I&O: Vital Signs Temp 98.4 F 10/17/17 16:00 Pulse 72 10/17/17 18:00 Resp 21 10/17/17 18:00 BP 123/74 10/17/17 18:00 Pulse Ox 97 10/17/17 17:00 Intake & Output 10/16/17 10/17/17 10/17/17 18:59 06:59 18:59 Intake Total 1400 1010 300 Output Total 350 1000 Balance 1050 10 300 Weight (lbs) 51.71 kg 51.71 kg Intake: Intake, IV Amount 300 350 300 Piperacillin Sodium/ 50 100 50 Tazobact 3.375 gm In Sodium Chloride 0.9% 50 ml @ 100 mls/hr IV Q8HR [facility] Rx#:[id number] Vancomycin HCl 0.75 gm In 250 250 250 Sodium Chloride 0.9% 250 ml @ 165 mls/hr IV Q12H [facility] Rx#:[id number] Tube Feeding 600 400 Blood Product 500 Other 260 Output: Urine 350 1000 Other: # Bowel Movements 1 2 Stool Characteristics Liquid Green Weight Source Bedscale Bedscale Active Medications: Current Medications Acetaminophen (Tylenol 650mg/20.3ml Suspension) 650 mg GT Q4HR PRN PRN Reason: Mild Pain or Fever >101 Stop: 12/12/17 13:45 Last Admin: 10/13/17 17:59 Dose: 650 mg Albuterol Sulfate (Albuterol 2.5mg/3ml Neb Ud) 2.5 mg HHN Q3H PRN PRN Reason: SOB/WHEEZING/RESPIRATORY DISTR Stop: 12/12/17 13:45 Albuterol Sulfate (Albuterol 2.5mg/3ml Neb Ud) 2.5 mg HHN Q4HRT [facility] Stop: 12/12/17 18:59 Last Admin: 10/17/17 15:01 Dose: 2.5 mg Ascorbic Acid (Vitamin C) 500 mg PO DAILY [facility] Stop: 12/13/17 08:59 Last Admin: 10/17/17 08:27 Dose: 500 mg Chlorhexidine Gluconate (Peridex) 15 ml MM 08,1999 [facility] Stop: 12/12/17 19:59 Last Admin: 10/17/17 08:37 Dose: 15 ml Dextrose (D50w) 50 ml IVP PRN PRN PRN Reason: B.S > 60 MG/DL Stop: 12/12/17 08:04 Enalaprilat (Vasotec) 1.25 mg IVP Q4HR PRN PRN Reason: SBP ABOVE 160 MMHG Stop: 12/12/17 08:58 Last Admin: 10/13/17 09:30 Dose: 1.25 mg Ferrous Sulfate (Iron) 450 mg GT DAILY [facility] Stop: 12/13/17 08:59 Last Admin: 10/17/17 08:26 Dose: 450 mg Piperacillin Sod/Tazobactam (Sod 3.375 gm/ Sodium Chloride) 50 mls @ 100 mls/ hr IV Q8HR [facility] Stop: 12/12/17 08:01 Last Infusion: 10/17/17 15:13 Dose: Infused Vancomycin HCl 0.75 gm/ Sodium (Chloride) 250 mls @ 165 mls/hr IV Q12H [facility] Stop: 12/14/17 08:59 Last Infusion: 10/17/17 14:43 Dose: Infused Lactobacillus Rhamnosus (Culturelle 15b) 1 each PO DAILY [facility] Stop: 12/13/17 13:59 Last Admin: 10/17/17 08:26 Dose: 1 each Levetiracetam (Keppra) 250 mg PO Q12H [facility] Stop: 12/12/17 13:59 Last Admin: 10/17/17 15:13 Dose: 250 mg Lorazepam (Ativan) 0.5 mg GT Q6H PRN; Protocol PRN Reason: Anxiety Stop: 12/12/17 13:45 Miscellaneous (Vancomycin Iv Per Pharmacy) 1 ea PRN PRN PRN Reason: PROTOCOL Stop: 12/12/17 08:00 Miscellaneous (Vte Chemical Prophylaxis Screen/ Admission) 1 ea PRN PRN PRN Reason: PROTOCOL Stop: 12/13/17 10:44 Miscellaneous (Probiotic Screen) 1 ea PRN PRN PRN Reason: PROTOCOL Stop: 12/13/17 12:03 Morphine Sulfate (Morphine) 1 mg IVP Q4HR PRN PRN Reason: Pain (Moderate) Stop: 12/12/17 09:34 Last Admin: 10/17/17 15:18 Dose: 1 mg Morphine Sulfate (Morphine) 2 mg IVP Q4HR PRN PRN Reason: Pain (Severe) Stop: 12/12/17 09:35 Last Admin: 10/17/17 01:25 Dose: 2 mg Morphine Sulfate (Morphine Ir) 15 mg GT Q6H PRN PRN Reason: MOD/SEVERE PAIN Stop: 12/12/17 13:45 Pantoprazole Sodium (Protonix) 40 mg IVP DAILY [facility] Stop: 12/14/17 08:59 Last Admin: 10/17/17 08:26 Dose: 40 mg Potassium Chloride (Potassium Chloride Elixir) 20 meq GT DAILY [facility] Stop: 12/16/17 18:29 General: Mild distress, Other (Evidence of R craniotomy) HEENT: Other (evidence of skull/brain surgery with major defect) Neck: Supple, +2 carotid pulse wo bruit Cardiovascular: Regular rate, Normal S1, Normal S2 Lungs: Other (rhonchi) Abdomen: Bowel sounds, Soft, no Tender, no Hepatomegaly, no Splenomegaly, no Distended, no Rebound Extremities: no Edema Neurological: Sensation intact Skin: no Rash Psych/Mental Status: Mood NL - Procedures Procedures: Procedures Procedure Code Date RESPIRATORY VENTILATION, 24-96 CONSECUTIVE HOURS [id number] 10/13/17 Assessment/Plan - Assessment Assessment: GT Malfnc S/P Replacement Hyponatremia Hypokalemia Right SDH, S/P Right Hemicranitomy RFVD Acute Decomp CHF Anemia of CD - Plan Plan: Lab - Result Diagrams 10/17/17 04:30 10/17/17 04:30 Current Medications Acetaminophen (Tylenol 650mg/20.3ml Suspension) 650 mg GT Q4HR PRN PRN Reason: Mild Pain or Fever >101 Stop: 12/12/17 13:45 Last Admin: 10/13/17 17:59 Dose: 650 mg Albuterol Sulfate (Albuterol 2.5mg/3ml Neb Ud) 2.5 mg HHN Q3H PRN PRN Reason: SOB/WHEEZING/RESPIRATORY DISTR Stop: 12/12/17 13:45 Albuterol Sulfate (Albuterol 2.5mg/3ml Neb Ud) 2.5 mg HHN Q4HRT [facility] Stop: 12/12/17 18:59 Last Admin: 10/17/17 15:01 Dose: 2.5 mg Ascorbic Acid (Vitamin C) 500 mg PO DAILY [facility] Stop: 12/13/17 08:59 Last Admin: 10/17/17 08:27 Dose: 500 mg Chlorhexidine Gluconate (Peridex) 15 ml MM 0800,1999 [facility] Stop: 12/12/17 19:59 Last Admin: 10/17/17 08:37 Dose: 15 ml Dextrose (D50w) 50 ml IVP PRN PRN PRN Reason: B.S > 60 MG/DL Stop: 12/12/17 08:04 Enalaprilat (Vasotec) 1.25 mg IVP Q4HR PRN PRN Reason: SBP ABOVE 160 MMHG Stop: 12/12/17 08:58 Last Admin: 10/13/17 09:30 Dose: 1.25 mg Ferrous Sulfate (Iron) 450 mg GT DAILY [facility] Stop: 12/13/17 08:59 Last Admin: 10/17/17 08:26 Dose: 450 mg Piperacillin Sod/Tazobactam (Sod 3.375 gm/ Sodium Chloride) 50 mls @ 100 mls/ hr IV Q8HR [facility] Stop: 12/12/17 08:01 Last Infusion: 10/17/17 15:13 Dose: Infused Vancomycin HCl 0.75 gm/ Sodium (Chloride) 250 mls @ 165 mls/hr IV Q12H [facility] Stop: 12/14/17 08:59 Last Infusion: 10/17/17 14:43 Dose: Infused Lactobacillus Rhamnosus (Culturelle 15b) 1 each PO DAILY [facility] Stop: 12/13/17 13:59 Last Admin: 10/17/17 08:26 Dose: 1 each Levetiracetam (Keppra) 250 mg PO Q12H [facility] Stop: 12/12/17 13:59 Last Admin: 10/17/17 15:13 Dose: 250 mg Lorazepam (Ativan) 0.5 mg GT Q6H PRN; Protocol PRN Reason: Anxiety Stop: 12/12/17 13:45 Miscellaneous (Vancomycin Iv Per Pharmacy) 1 ea PRN PRN PRN Reason: PROTOCOL Stop: 12/12/17 08:00 Miscellaneous (Vte Chemical Prophylaxis Screen/ Admission) 1 ea PRN PRN PRN Reason: PROTOCOL Stop: 12/13/17 10:44 Miscellaneous (Probiotic Screen) 1 ea PRN PRN PRN Reason: PROTOCOL Stop: 12/13/17 12:03 Morphine Sulfate (Morphine) 1 mg IVP Q4HR PRN PRN Reason: Pain (Moderate) Stop: 12/12/17 09:34 Last Admin: 10/17/17 15:18 Dose: 1 mg Morphine Sulfate (Morphine) 2 mg IVP Q4HR PRN PRN Reason: Pain (Severe) Stop: 12/12/17 09:35 Last Admin: 10/17/17 01:25 Dose: 2 mg Morphine Sulfate (Morphine Ir) 15 mg GT Q6H PRN PRN Reason: MOD/SEVERE PAIN Stop: 12/12/17 13:45 Pantoprazole Sodium (Protonix) 40 mg IVP DAILY [facility] Stop: 12/14/17 08:59 Last Admin: 10/17/17 08:26 Dose: 40 mg Potassium Chloride (Potassium Chloride Elixir) 20 meq GT DAILY [facility] Stop: 12/16/17 18:29 Lab - Result Diagrams 10/17/17 04:30 10/17/17 04:30 Na down to 132 K up to 138, start po K CXR still w/ B/L infiltrates, pulm edema DC IVF due to CHF on CXR, elevated BNP f/u electrolytes Nutritional Asmnt/Malnutr-PDOC - Dietary Evaluation Malnutrition Findings (Please click <Entered> for more info): Nutritional Asmnt/Malnutrition Start: 10/13/17 15: 20 Text: Status: Complete Freq: Protocol: Document 10/13/17 15:21 [email or web address] (Rec: 10/13/17 15:42 [id number] [id number]) Nutritional Asmnt/Malnutrition Patient General Information Nutritional Screening High Risk Diagnosis hyponatremia, J tube placement Pertinent Medical Hx/Surgical Hx CVA/TIA, ESRD, dementia, PEG/ Gtube, trach Subjective Information Pt seen on vent via trach. Per RN, no nutrition plan at this time from . pt is on NPO status. Current Diet Order/ Nutrition Support no diet order. Pertinent Medications vit C, Iron, piperacillin, nacl 0.9%, vancomycin Pertinent Labs 10/13 Na 129, cl 89, Cr 0.4 Nutritional Hx/Data Height 1.6 m Height (Calculated Centimeters) 160.0 Current Weight (lbs) 50.349 kg Weight (Calculated Kilograms) 50.3 Weight (Calculated Grams) 45990.8 [place] Body Weight 115 Body Mass Index (BMI) 19.6 Weight Status Approriate GI Symptoms GI Symptoms None Last BM not indicated Difficult in: None Skin Integrity/Comment: intact Estimated Nutritional Goals BEE in Kcals: Using Current wt Calories/Kcals/Kg 25-30 Kcals Calculated 1584-9780 Protein: Using Current wt Protein g/k-1.2 Protein Calculated 50-60 Fluid: ml 1250-1500ml (1ml/kcal) Nutritional Problem 2. Problem Problem inadequate energy intake Etiology J tube malfunction Signs/Symptoms: nutrition support not initiated 1. Problem Problem altered nutrition labs Etiology electrolytes imbalance Signs/Symptoms: Na 129 Malnutrition Alert Is there a minimum of two criteria No selected? Query Text:Check all the applicable criteria. A minimum of two criteria are recommended for diagnosis of either severe or non-severe malnutrition. Malnutrition Related to Morbid Obesity Malnutrition related to morbid obesity No Intervention/Recommendation Comments 1. Monitor NPO status 2. If TF needed, recommend Fibersource HN 55m/hr x 20hr. This will provide 1320kcal, 59g protein, 891ml free water. 3. Monitor wt, skin integrity and labs 4. F/U as high risk in 2 days, 6/7 Expected Outcomes/Goals Expected Outcomes/Goals 1. Pt to meet at least 75% of nutritional needs. 2. Wt stability, skin to remain intact, labs to approach WNL.
--- NOTE | 2017-10-17 18:47 | Consultation ---
DATE OF CONSULTATION: 10/16/2017 ATTENDING PHYSICIAN: Dr. Bry Soria. CONCIERGE: Dr. Micha Syed. REASON FOR CONSULTATION: Persistent hypokalemia. HISTORY OF PRESENT ILLNESS: This is an 82-year-old -[place] female with past medical history of status post CVA, who came in because of malfunctioning G-tube. A few hours prior to admission, staff noted her G-tube to be malfunctioning. She was then brought to the Emergency Room. KUB done showed gastrostomy tube in the stomach with distal fecal impaction. Chest x-ray revealed bilateral infiltrates with possible pneumonia/CHF. Her white count was 10.1. She was started on Zosyn. She was seen by GI. Her gastrostomy tube was successfully replaced and now she is tolerating her feedings without any problems. Her potassium upon admission was 3.9; however, this progressively decrease with poor response to replacement. Her latest potassium is 3.2. She does not have any nausea and vomiting, severe diuresis, nor diarrhea. PAST MEDICAL HISTORY: 1. 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 2. Right ICA aneurysm. 3. Respiratory failure, vent dependent. 4. Essential hypertension. 5. Anoxic/metabolic encephalopathy. PAST SURGICAL HISTORY: 1. Status post right hemicraniotomy. 2. Status post placement of HOT BOX CHECKER shunt. 3. Status post coil embolization of right ICA. CURRENT MEDICATIONS: She is currently on acetaminophen, albuterol nebulizer, ascorbic acid, chlorhexidine, clonidine, Vasotec, ferrous sulfate, levetiracetam, Ativan, morphine sulfate, multivitamins, pantoprazole, vancomycin, and Zosyn. ALLERGIES: No known drug allergies. SOCIAL AND FAMILY HISTORY: I was not able to obtain from the patient because she is currently on a ventilator. REVIEW OF SYSTEMS: Again, I was not able to decipher from the patient because of the same reason. PHYSICAL EXAMINATION: GENERAL: The patient is stuporous on a ventilator, comfortable. VITAL SIGNS: Blood pressure is 121/53, pulse 96, afebrile. SKIN: Good turgor, warm, no rash, no jaundice appreciated. HEENT: Head normocephalic, but she has an indentation involving right temporal lobe of the scalp. Eyes: Unable to assess her extraocular muscles. Pupils are equal, round, reactive to light and accommodates. Anicteric sclerae. Pale conjunctivae. Nose, midline nasal septum. Mouth, dry mucosa. Poor dentition. NECK: Supple, no adenopathy, no thyromegaly, no bruits. Trachea palpated in the midline. CHEST AND CVS: S1, S2. No rub or murmur, no gallop appreciated. Point of maximal impulse fifth intercostal space, left midclavicular line. No abdominal or femoral bruits appreciated. LUNGS: Equal expansion. No use of accessory muscles. No supraclavicular retractions. Decreased breath sounds, but scattered rhonchi with few rales, but no wheezes appreciated. BREASTS: Symmetrical without any discharge. ABDOMEN: Globular, soft. Positive for bowel sounds. No bruits either diastolic or systolic. RECTAL: Lax sphincter tone. GENITOURINARY: Normal appearing female genitalia with indwelling Zaragoza catheter. MUSCULOSKELETAL: No effusions present in her joints, but unable to assess her range of motion. EXTREMITIES: No evidence of edema, cyanosis nor clubbing with palpable femoral, but unable to fully appreciate popliteal and dorsalis pedis pulses. NEUROLOGIC: The patient, as mentioned, is stuporous, so she was not able to follow my neuro commands and I was not able to pursue further my neuro exam. The patient has decerebrate posturing. LABORATORY DATA: Labs did reveal white count 8.8, hemoglobin 6.9, hematocrit 21, platelets 396. Sodium 134, potassium 3.2, chloride 103, bicarbonate 25, BUN 10, creatinine 0.5, glucose 122, albumin 2.5. IMPRESSION: 1. Hypokalemia, etiology is unknown at the present time. 2. Status post cerebrovascular accident with right subarachnoid hemorrhage and right temporal lobe intracerebral hemorrhage, status post right hemicraniotomy and HOT BOX CHECKER shunt. 3. Complicated urinary tract infection. 4. Bilateral ventilator-associated pneumonia with decompensated congestive heart failure. 5. Fecal impaction. 6. Severe malnutrition. 7. Functional quadriplegia. 8. Respiratory failure, vent dependent. 9. Essential hypertension. 10. Anoxic/metabolic encephalopathy. PLAN: 1. Urinalysis. 2. A 24-hour urine potassium. 3. Would add potassium to IV fluids. 4. Request for electrolytes and BNP level. 5. Stool for occult blood. Thank you Dr. Soria for this consult. I will follow the patient closely with you. JOB# [id number]
[2017-10-17] MEDS: Potassium Chloride Elixir 20 mEq /15 mL UDC GT SCH (20:30)
[2017-10-18] MEDS: Albuterol Nebulizer 2.5mg/3mL HHN SCH ×6 (03:00→23:10)
[2017-10-18] MEDS: Morphine Sulfate 4 mg/mL 1mL Syr IVP PRN ×3 (04:11→16:25)
[2017-10-18] MEDS: Ferrous Sulfate 300 MG/5 ML UDC GT SCH (08:30)
[2017-10-18] MEDS: Lactobacillus Rhamnosus GG 15 Billion CFU CAP.SPRINK PO SCH (08:31)
[2017-10-18] MEDS: Potassium Chloride Elixir 20 mEq /15 mL UDC GT SCH (08:31)
[2017-10-18] MEDS: Multivitamin w/ Minerals Tab GT SCH (08:31)
[2017-10-18] MEDS: Chlorhexidine Gluconate 0.12% 15mL Mouthwash MM SCH ×2 (08:32→23:00)
--- NOTE | 2017-10-18 08:43 | GI Progress Note ---
Subjective - Review of Systems Subjective: NO GI BLEEDING PER STAFF G TUBE RESIDUALS ARE MINIMAL AND WITHOUT BLOOD Objective - Results Result Diagrams: 10/17/17 04:30 10/17/17 04:30 Recent Labs: Laboratory Last Values WBC 9.2 Th/cmm (4.8-10.8) 10/17/17 04:30 RBC 3.54 Mil/cmm (3.80-5.20) L 10/17/17 04:30 Hgb 9.5 gm/dL (12-16) L 10/17/17 04:30 Hct 29.1 % (41.0-60) L D 10/17/17 04:30 MCV 82.2 fl (81-100) 10/17/17 04:30 MCH 26.8 pg (27.0-31.0) L 10/17/17 04:30 MCHC Differential 32.5 pg (28.0-36.0) 10/17/17 04:30 RDW 19.6 % (11.5-20.0) 10/17/17 04:30 Plt Count 421 Th/cmm (150-400) H 10/17/17 04:30 MPV 7.4 fl 10/17/17 04:30 Neutrophils % 61.5 % (40.0-80.0) 10/17/17 04:30 Lymphocytes % 23.3 % (20.0-50.0) 10/17/17 04:30 Monocytes % 11.7 % (2.0-10.0) H 10/17/17 04:30 Eosinophils % 2.9 % (0.0-5.0) 10/17/17 04:30 Basophils % 0.6 % (0.0-2.0) 10/17/17 04:30 Sodium 132 mEq/L (136-145) L 10/17/17 04:30 Potassium 3.8 mEq/L (3.5-5.1) 10/17/17 04:30 Chloride 103 mEq/L (98-107) 10/17/17 04:30 Carbon Dioxide 24.0 mEq/L (21.0-31.0) 10/17/17 04:30 Anion Gap 8.8 (7.0-16.0) 10/17/17 04:30 BUN 11 mg/dL (7-25) 10/17/17 04:30 Creatinine 0.5 mg/dL (0.6-1.2) L 10/17/17 04:30 Est GFR ( Amer) TNP 10/17/17 04:30 Est GFR (Non-Af Amer) TNP 10/17/17 04:30 BUN/Creatinine Ratio 22.0 10/17/17 04:30 Glucose 112 mg/dL (70-105) H 10/17/17 04:30 POC Glucose 106 MG/DL (70 - 105) H 10/13/17 09:54 Whole Bld Lactic Acid 1.49 mmol/L (0.60-1.99) 10/13/17 09:35 Calcium 8.4 mg/dL (8.6-10.3) L 10/17/17 04:30 Magnesium 1.9 mg/dL (1.9-2.7) 10/17/17 04:30 Total Bilirubin 0.6 mg/dL (0.3-1.0) 10/14/17 04:20 AST 15 U/L (13-39) 10/14/17 04:20 ALT 9 U/L (7-52) 10/14/17 04:20 Alkaline Phosphatase 91 U/L (34-104) 10/14/17 04:20 B-Natriuretic Peptide 429.0 pg/mL (5.0-100.0) H 10/17/17 04:30 Total Protein 7.7 gm/dL (6.0-8.3) 10/14/17 04:20 Albumin 2.5 gm/dL (3.7-5.3) L 10/14/17 04:20 Globulin 5.2 gm/dL 10/14/17 04:20 Albumin/Globulin Ratio 0.5 (1.0-1.8) L 10/14/17 04:20 Urine Source ECHOLS PORT 10/16/17 16:35 Urine Color YELLOW 10/16/17 16:35 Urine Clarity SLIGHTLY HAZY (CLEAR) 10/16/17 16:35 Urine pH 7.5 (4.6 - 8.0) 10/16/17 16:35 Ur Specific [place] 1.015 (1.005-1.030) 10/16/17 16:35 Urine Protein 30 mg/dL (NEGATIVE) H 10/16/17 16:35 Urine Glucose (UA) NEGATIVE mg/dL (NEGATIVE) 10/16/17 16:35 Urine Ketones NEGATIVE mg/dL (NEGATIVE) 10/16/17 16:35 Urine Blood TRACE (NEGATIVE) 10/16/17 16:35 Urine Nitrate NEGATIVE (NEGATIVE) 10/16/17 16:35 Urine Bilirubin NEGATIVE (NEGATIVE) 10/16/17 16:35 Urine Urobilinogen 1.0 E.U./dL (0.2 - 1.0) 10/16/17 16:35 Ur Leukocyte Esterase NEGATIVE (NEGATIVE) 10/16/17 16:35 Urine RBC 5-10 /hpf (0-5) H 10/16/17 16:35 Urine WBC 6-10 /hpf (0-5) H 10/16/17 16:35 Ur Epithelial Cells RARE /lpf (FEW) 10/16/17 16:35 Urine Bacteria FEW /hpf (NONE SEEN) 10/16/17 16:35 Ur Random Potassium 27.0 mmol/L 10/17/17 18:00 Urine Collection Time 24 hours 10/17/17 18:00 Urine Total Volume 1750 ml 10/17/17 18:00 Ur Potassium 24 Hour 47.3 mmol/24h (25.0-125.0) 10/17/17 18:00 Stool Occult Blood NEGATIVE (NEGATIVE) 10/17/17 04:20 Vancomycin Trough 10.6 ug/mL (5-10) H 10/16/17 06:30 Blood Type O POSITIVE 10/16/17 06:30 Antibody Screen NEGATIVE 10/16/17 06:30 Crossmatch See Detail 10/16/17 06:30 - Physical Exam Vitals and I&O: Vital Signs Temp 97.7 F 10/18/17 07:58 Pulse 76 10/18/17 07:58 Resp 25 10/18/17 07:58 BP 117/54 10/18/17 07:58 Pulse Ox 96 10/18/17 08:00 Intake & Output 10/17/17 10/18/17 10/18/17 18:59 06:59 18:59 Intake Total 300 1300 Output Total 2100 Balance 300 -800 Weight (lbs) 62.709 kg Intake: Intake, IV Amount 300 50 Piperacillin Sodium/ 50 50 Tazobact 3.375 gm In Sodium Chloride 0.9% 50 ml @ 100 mls/hr IV Q8HR [facility] Rx#:[id number] Vancomycin HCl 0.75 gm In 250 Sodium Chloride 0.9% 250 ml @ 165 mls/hr IV Q12H [facility] Rx#:[id number] Tube Feeding 950 Other 300 Output: Urine 2100 Other: Weight Source Bedscale Active Medications: Current Medications Acetaminophen (Tylenol 650mg/20.3ml Suspension) 650 mg GT Q4HR PRN PRN Reason: Mild Pain or Fever >101 Stop: 12/12/17 13:45 Last Admin: 10/13/17 17:59 Dose: 650 mg Albuterol Sulfate (Albuterol 2.5mg/3ml Neb Ud) 2.5 mg HHN Q3H PRN PRN Reason: SOB/WHEEZING/RESPIRATORY DISTR Stop: 12/12/17 13:45 Albuterol Sulfate (Albuterol 2.5mg/3ml Neb Ud) 2.5 mg HHN Q4HRT [facility] Stop: 12/12/17 18:59 Last Admin: 10/18/17 07:10 Dose: 2.5 mg Ascorbic Acid (Vitamin C) 500 mg PO DAILY [facility] Stop: 12/13/17 08:59 Last Admin: 10/18/17 08:31 Dose: 500 mg Chlorhexidine Gluconate (Peridex) 15 ml MM 0800,1999 [facility] Stop: 12/12/17 19:59 Last Admin: 10/18/17 08:32 Dose: 15 ml Dextrose (D50w) 50 ml IVP PRN PRN PRN Reason: B.S > 60 MG/DL Stop: 12/12/17 08:04 Enalaprilat (Vasotec) 1.25 mg IVP Q4HR PRN PRN Reason: SBP ABOVE 160 MMHG Stop: 12/12/17 08:58 Last Admin: 10/13/17 09:30 Dose: 1.25 mg Ferrous Sulfate (Iron) 450 mg GT DAILY [facility] Stop: 12/13/17 08:59 Last Admin: 10/18/17 08:30 Dose: 450 mg Piperacillin Sod/Tazobactam (Sod 3.375 gm/ Sodium Chloride) 50 mls @ 100 mls/ hr IV Q8HR [facility] Stop: 12/12/17 08:01 Last Admin: 10/18/17 05:30 Dose: 100 mls/hr Vancomycin HCl 0.75 gm/ Sodium (Chloride) 250 mls @ 165 mls/hr IV Q12H [facility] Stop: 12/14/17 08:59 Last Admin: 10/17/17 21:39 Dose: 165 mls/hr Lactobacillus Rhamnosus (Culturelle 15b) 1 each PO DAILY [facility] Stop: 12/13/17 13:59 Last Admin: 10/18/17 08:31 Dose: 1 each Levetiracetam (Keppra) 250 mg PO Q12H [facility] Stop: 12/12/17 13:59 Last Admin: 10/18/17 01:52 Dose: 250 mg Lorazepam (Ativan) 0.5 mg GT Q6H PRN; Protocol PRN Reason: Anxiety Stop: 12/12/17 13:45 Miscellaneous (Vancomycin Iv Per Pharmacy) 1 ea PRN PRN PRN Reason: PROTOCOL Stop: 12/12/17 08:00 Miscellaneous (Vte Chemical Prophylaxis Screen/ Admission) 1 [facility] PRN PRN PRN Reason: PROTOCOL Stop: 12/13/17 10:44 Miscellaneous (Probiotic Screen) 1 ea PRN PRN PRN Reason: PROTOCOL Stop: 12/13/17 12:03 Morphine Sulfate (Morphine) 1 mg IVP Q4HR PRN PRN Reason: Pain (Moderate) Stop: 12/12/17 09:34 Last Admin: 10/18/17 04:11 Dose: 1 mg Morphine Sulfate (Morphine) 2 mg IVP Q4HR PRN PRN Reason: Pain (Severe) Stop: 12/12/17 09:35 Last Admin: 10/17/17 01:25 Dose: 2 mg Morphine Sulfate (Morphine Ir) 15 mg GT Q6H PRN PRN Reason: MOD/SEVERE PAIN Stop: 12/12/17 13:45 Pantoprazole Sodium (Protonix) 40 mg IVP DAILY [facility] Stop: 12/14/17 08:59 Last Admin: 10/18/17 08:32 Dose: 40 mg Potassium Chloride (Potassium Chloride Elixir) 20 meq GT DAILY [facility] Stop: 12/16/17 18:29 Last Admin: 10/18/17 08:31 Dose: 20 meq General: Mild distress, Other (Evidence of R craniotomy) HEENT: Other (evidence of skull/brain surgery with major defect) Neck: Supple, +2 carotid pulse wo bruit Cardiovascular: Regular rate, Normal S1, Normal S2 Lungs: Other (rhonchi) Abdomen: Bowel sounds, Soft, no Tender, no Hepatomegaly, no Splenomegaly, no Distended, no Rebound Extremities: no Edema Neurological: Sensation intact Skin: no Rash Psych/Mental Status: Mood NL - Procedures Procedures: Procedures Procedure Code Date RESPIRATORY VENTILATION, 24-96 CONSECUTIVE HOURS [id number] 10/13/17 Assessment/Plan - Assessment Assessment: 82 YO FEMALE WITH DYSPHAGIA ALFREDO TUBE FEEDS STOOL OB NEG X 3 HGB BETTER 1.CONT TUBE FEEDS 2.CONT SUPP CARE
[2017-10-18 08:57] LABS: ANION GAP 9.5 (7.0-16.0); BUN - UREA NITROGEN 9 mg/dL (7-25); CALCIUM SERUM 8.5 mg/dL (8.6-10.3); CARBON DIOXIDE 23.4 mEq/L (21.0-31.0); CHLORIDE 103 mEq/L (98-107); CREATININE - SERUM 0.5 mg/dL (0.6-1.2); GLUCOSE 126 mg/dL (70-105); POTASSIUM SERUM 3.9 mEq/L (3.5-5.1); SODIUM SERUM 132 mEq/L (136-145)
--- NOTE | 2017-10-18 10:49 | General Progress Note ---
Subjective - Review of Systems Service Date: 10/18/17 Subjective: patient awake ] no distress denies pain Objective - Results Result Diagrams: 10/17/17 04:30 10/18/17 08:20 Recent Labs: Laboratory Last Values WBC 9.2 Th/cmm (4.8-10.8) 10/17/17 04:30 RBC 3.54 Mil/cmm (3.80-5.20) L 10/17/17 04:30 Hgb 9.5 gm/dL (12-16) L 10/17/17 04:30 Hct 29.1 % (41.0-60) L D 10/17/17 04:30 MCV 82.2 fl (81-100) 10/17/17 04:30 MCH 26.8 pg (27.0-31.0) L 10/17/17 04:30 MCHC Differential 32.5 pg (28.0-36.0) 10/17/17 04:30 RDW 19.6 % (11.5-20.0) 10/17/17 04:30 Plt Count 421 Th/cmm (150-400) H 10/17/17 04:30 MPV 7.4 fl 10/17/17 04:30 Neutrophils % 61.5 % (40.0-80.0) 10/17/17 04:30 Lymphocytes % 23.3 % (20.0-50.0) 10/17/17 04:30 Monocytes % 11.7 % (2.0-10.0) H 10/17/17 04:30 Eosinophils % 2.9 % (0.0-5.0) 10/17/17 04:30 Basophils % 0.6 % (0.0-2.0) 10/17/17 04:30 Sodium 132 mEq/L (136-145) L 10/18/17 08:20 Potassium 3.9 mEq/L (3.5-5.1) 10/18/17 08:20 Chloride 103 mEq/L (98-107) 10/18/17 08:20 Carbon Dioxide 23.4 mEq/L (21.0-31.0) 10/18/17 08:20 Anion Gap 9.5 (7.0-16.0) 10/18/17 08:20 BUN 9 mg/dL (7-25) 10/18/17 08:20 Creatinine 0.5 mg/dL (0.6-1.2) L 10/18/17 08:20 Est GFR ( Amer) TNP 10/18/17 08:20 Est GFR (Non-Af Amer) TNP 10/18/17 08:20 BUN/Creatinine Ratio 18.0 10/18/17 08:20 Glucose 126 mg/dL (70-105) H 10/18/17 08:20 POC Glucose 106 MG/DL (70 - 105) H 10/13/17 09:54 Whole Bld Lactic Acid 1.49 mmol/L (0.60-1.99) 10/13/17 09:35 Calcium 8.5 mg/dL (8.6-10.3) L 10/18/17 08:20 Magnesium 1.9 mg/dL (1.9-2.7) 10/17/17 04:30 Total Bilirubin 0.6 mg/dL (0.3-1.0) 10/14/17 04:20 AST 15 U/L (13-39) 10/14/17 04:20 ALT 9 U/L (7-52) 10/14/17 04:20 Alkaline Phosphatase 91 U/L (34-104) 10/14/17 04:20 B-Natriuretic Peptide 429.0 pg/mL (5.0-100.0) H 10/17/17 04:30 Total Protein 7.7 gm/dL (6.0-8.3) 10/14/17 04:20 Albumin 2.5 gm/dL (3.7-5.3) L 10/14/17 04:20 Globulin 5.2 gm/dL 10/14/17 04:20 Albumin/Globulin Ratio 0.5 (1.0-1.8) L 10/14/17 04:20 Urine Source ECHOLS PORT 10/16/17 16:35 Urine Color YELLOW 10/16/17 16:35 Urine Clarity SLIGHTLY HAZY (CLEAR) 10/16/17 16:35 Urine pH 7.5 (4.6 - 8.0) 10/16/17 16:35 Ur Specific [place] 1.015 (1.005-1.030) 10/16/17 16:35 Urine Protein 30 mg/dL (NEGATIVE) H 06/08/18 16:35 Urine Glucose (UA) NEGATIVE mg/dL (NEGATIVE) 10/16/17 16:35 Urine Ketones NEGATIVE mg/dL (NEGATIVE) 10/16/17 16:35 Urine Blood TRACE (NEGATIVE) 10/16/17 16:35 Urine Nitrate NEGATIVE (NEGATIVE) 10/16/17 16:35 Urine Bilirubin NEGATIVE (NEGATIVE) 10/16/17 16:35 Urine Urobilinogen 1.0 E.U./dL (0.2 - 1.0) 10/16/17 16:35 Ur Leukocyte Esterase NEGATIVE (NEGATIVE) 10/16/17 16:35 Urine RBC 5-10 /hpf (0-5) H 10/16/17 16:35 Urine WBC 6-10 /hpf (0-5) H 10/16/17 16:35 Ur Epithelial Cells RARE /lpf (FEW) 10/16/17 16:35 Urine Bacteria FEW /hpf (NONE SEEN) 10/16/17 16:35 Ur Random Potassium 27.0 mmol/L 10/17/17 18:00 Urine Collection Time 24 hours 10/17/17 18:00 Urine Total Volume 1750 ml 10/17/17 18:00 Ur Potassium 24 Hour 47.3 mmol/24h (25.0-125.0) 10/17/17 18:00 Stool Occult Blood NEGATIVE (NEGATIVE) 10/17/17 04:20 Vancomycin Trough 14.4 ug/mL (5-10) H 10/18/17 08:20 Blood Type O POSITIVE 10/16/17 06:30 Antibody Screen NEGATIVE 10/16/17 06:30 Crossmatch See Detail 10/16/17 06:30 - Physical Exam Vitals and I&O: Vital Signs Temp 97.7 F 10/18/17 07:58 Pulse 73 10/18/17 09:00 Resp 99 10/18/17 09:00 BP 117/58 10/18/17 09:00 Pulse Ox 99 10/18/17 08:58 Intake & Output 10/17/17 10/18/17 10/18/17 18:59 06:59 18:59 Intake Total 300 1300 50 Output Total 2100 Balance 300 -800 50 Weight (lbs) 62.709 kg Intake: Intake, IV Amount 300 50 50 Piperacillin Sodium/ 50 50 50 Tazobact 3.375 gm In Sodium Chloride 0.9% 50 ml @ 100 mls/hr IV Q8HR [facility] Rx#:[id number] Vancomycin HCl 0.75 gm In 250 Sodium Chloride 0.9% 250 ml @ 165 mls/hr IV Q12H [facility] Rx#:[id number] Tube Feeding 950 Other 300 Output: Urine 2100 Other: Weight Source Bedscale Active Medications: Current Medications Acetaminophen (Tylenol 650mg/20.3ml Suspension) 650 mg GT Q4HR PRN PRN Reason: Mild Pain or Fever >101 Stop: 12/12/17 13:45 Last Admin: 10/13/17 17:59 Dose: 650 mg Albuterol Sulfate (Albuterol 2.5mg/3ml Neb Ud) 2.5 mg HHN Q3H PRN PRN Reason: SOB/WHEEZING/RESPIRATORY DISTR Stop: 12/12/17 13:45 Albuterol Sulfate (Albuterol 2.5mg/3ml Neb Ud) 2.5 mg HHN Q4HRT [facility] Stop: 12/12/17 18:59 Last Admin: 10/18/17 07:10 Dose: 2.5 mg Ascorbic Acid (Vitamin C) 500 mg PO DAILY [facility] Stop: 12/13/17 08:59 Last Admin: 10/18/17 08:31 Dose: 500 mg Chlorhexidine Gluconate (Peridex) 15 ml MM 0800,1999 [facility] Stop: 12/12/17 19:59 Last Admin: 10/18/17 08:32 Dose: 15 ml Dextrose (D50w) 50 ml IVP PRN PRN PRN Reason: B.S > 60 MG/DL Stop: 12/12/17 08:04 Enalaprilat (Vasotec) 1.25 mg IVP Q4HR PRN PRN Reason: SBP ABOVE 160 MMHG Stop: 12/12/17 08:58 Last Admin: 10/13/17 09:30 Dose: 1.25 mg Ferrous Sulfate (Iron) 450 mg GT DAILY [facility] Stop: 12/13/17 08:59 Last Admin: 10/18/17 08:30 Dose: 450 mg Piperacillin Sod/Tazobactam (Sod 3.375 gm/ Sodium Chloride) 50 mls @ 100 mls/ hr IV Q8HR [facility] Stop: 12/12/17 08:01 Last Infusion: 10/18/17 09:34 Dose: Infused Vancomycin HCl 1 gm/ Sodium (Chloride) 250 mls @ 165 mls/hr IV Q12H [facility] Stop: 12/17/17 09:59 Lactobacillus Rhamnosus (Culturelle 15b) 1 each PO DAILY [facility] Stop: 12/13/17 13:59 Last Admin: 10/18/17 08:31 Dose: 1 each Levetiracetam (Keppra) 250 mg PO Q12H [facility] Stop: 12/12/17 13:59 Last Admin: 10/18/17 01:52 Dose: 250 mg Lorazepam (Ativan) 0.5 mg GT Q6H PRN; Protocol PRN Reason: Anxiety Stop: 12/12/17 13:45 Miscellaneous (Vancomycin Iv Per Pharmacy) 1 ea PRN PRN PRN Reason: PROTOCOL Stop: 12/12/17 08:00 Miscellaneous (Vte Chemical Prophylaxis Screen/ Admission) 1 ea PRN PRN PRN Reason: PROTOCOL Stop: 12/13/17 10:44 Miscellaneous (Probiotic Screen) 1 [facility] PRN PRN PRN Reason: PROTOCOL Stop: 12/13/17 12:03 Morphine Sulfate (Morphine) 1 mg IVP Q4HR PRN PRN Reason: Pain (Moderate) Stop: 12/12/17 09:34 Last Admin: 10/18/17 04:11 Dose: 1 mg Morphine Sulfate (Morphine) 2 mg IVP Q4HR PRN PRN Reason: Pain (Severe) Stop: 12/12/17 09:35 Last Admin: 10/17/17 01:25 Dose: 2 mg Morphine Sulfate (Morphine Ir) 15 mg GT Q6H PRN PRN Reason: MOD/SEVERE PAIN Stop: 12/12/17 13:45 Pantoprazole Sodium (Protonix) 40 mg IVP DAILY [facility] Stop: 12/14/17 08:59 Last Admin: 10/18/17 08:32 Dose: 40 mg Potassium Chloride (Potassium Chloride Elixir) 20 meq GT DAILY [facility] Stop: 12/16/17 18:29 Last Admin: 10/18/17 08:31 Dose: 20 meq General: No acute distress, Other (Evidence of R craniotomy), no Mild distress HEENT: Other (evidence of skull/brain surgery with major defect) Neck: Supple, +2 carotid pulse wo bruit Cardiovascular: Regular rate, Normal S1, Normal S2 Lungs: Other (rhonchi) Abdomen: Bowel sounds, Soft, no Tender, no Hepatomegaly, no Splenomegaly, no Distended, no Rebound Extremities: no Edema Neurological: Sensation intact Skin: no Rash Psych/Mental Status: Mood NL - Procedures Procedures: Procedures Procedure Code Date RESPIRATORY VENTILATION, 24-96 CONSECUTIVE HOURS [id number] 10/13/17 Assessment/Plan - Assessment Assessment: gt malfunction hx cvs vdrf respiratory failure pvs - Plan Plan: monitor vitals cmp Nutritional Asmnt/Malnutr-PDOC - Dietary Evaluation Malnutrition Findings (Please click <Entered> for more info): Nutritional Asmnt/Malnutrition Start: 10/13/17 15: 20 Text: Status: Complete Freq: Protocol: Document 10/13/17 15:21 AHMET (Rec: 10/13/17 15:42 AHMET [id number]) Nutritional Asmnt/Malnutrition Patient General Information Nutritional Screening High Risk Diagnosis hyponatremia, J tube placement Pertinent Medical Hx/Surgical Hx CVA/TIA, ESRD, dementia, PEG/ Gtube, trach Subjective Information Pt seen on vent via trach. Per RN, no nutrition plan at this time from MD. pt is on NPO status. Current Diet Order/ Nutrition Support no diet order. Pertinent Medications vit C, Iron, piperacillin, nacl 0.9%, vancomycin Pertinent Labs 6/5 Na 129, cl 89, Cr 0.4 Nutritional Hx/Data Height 1.6 m Height (Calculated Centimeters) 160.0 Current Weight (lbs) 50.349 kg Weight (Calculated Kilograms) 50.3 Weight (Calculated Grams) 83514.8 [place] Body Weight 115 Body Mass Index (BMI) 19.6 Weight Status Approriate GI Symptoms GI Symptoms None Last BM not indicated Difficult in: None Skin Integrity/Comment: intact Estimated Nutritional Goals BEE in Kcals: Using Current wt Calories/Kcals/Kg 25-30 Kcals Calculated [id number] Protein: Using Current wt Protein g/k-1.2 Protein Calculated 50-60 Fluid: ml 1250-1500ml (1ml/kcal) Nutritional Problem 2. Problem Problem inadequate energy intake Etiology J tube malfunction Signs/Symptoms: nutrition support not initiated 1. Problem Problem altered nutrition labs Etiology electrolytes imbalance Signs/Symptoms: Na 129 Malnutrition Alert Is there a minimum of two criteria No selected? Query Text:Check all the applicable criteria. A minimum of two criteria are recommended for diagnosis of either severe or non-severe malnutrition. Malnutrition Related to Morbid Obesity Malnutrition related to morbid obesity No Intervention/Recommendation Comments 1. Monitor NPO status 2. If TF needed, recommend Fibersource HN 55m/hr x 20hr. This will provide 1320kcal, 59g protein, 891ml free water. 3. Monitor wt, skin integrity and labs 4. F/U as high risk in 2 days, 6/7 Expected Outcomes/Goals Expected Outcomes/Goals 1. Pt to meet at least 75% of nutritional needs. 2. Wt stability, skin to remain intact, labs to approach WNL.
--- NOTE | 2017-10-18 13:44 | General Progress Note ---
Subjective - Review of Systems Service Date: 10/18/17 Subjective: sleeping, comfortable Objective - Results Result Diagrams: 10/17/17 04:30 10/18/17 08:20 Recent Labs: Laboratory Last Values WBC 9.2 Th/cmm (4.8-10.8) 10/17/17 04:30 RBC 3.54 Mil/cmm (3.80-5.20) L 10/17/17 04:30 Hgb 9.5 gm/dL (12-16) L 10/17/17 04:30 Hct 29.1 % (41.0-60) L D 10/17/17 04:30 MCV 82.2 fl (81-100) 10/17/17 04:30 MCH 26.8 pg (27.0-31.0) L 10/17/17 04:30 MCHC Differential 32.5 pg (28.0-36.0) 10/17/17 04:30 RDW 19.6 % (11.5-20.0) 10/17/17 04:30 Plt Count 421 Th/cmm (150-400) H 10/17/17 04:30 MPV 7.4 fl 10/17/17 04:30 Neutrophils % 61.5 % (40.0-80.0) 10/17/17 04:30 Lymphocytes % 23.3 % (20.0-50.0) 10/17/17 04:30 Monocytes % 11.7 % (2.0-10.0) H 10/17/17 04:30 Eosinophils % 2.9 % (0.0-5.0) 10/17/17 04:30 Basophils % 0.6 % (0.0-2.0) 10/17/17 04:30 Sodium 132 mEq/L (136-145) L 10/18/17 08:20 Potassium 3.9 mEq/L (3.5-5.1) 10/18/17 08:20 Chloride 103 mEq/L (98-107) 10/18/17 08:20 Carbon Dioxide 23.4 mEq/L (21.0-31.0) 10/18/17 08:20 Anion Gap 9.5 (7.0-16.0) 10/18/17 08:20 BUN 9 mg/dL (7-25) 10/18/17 08:20 Creatinine 0.5 mg/dL (0.6-1.2) L 10/18/17 08:20 Est GFR ( Amer) TNP 10/18/17 08:20 Est GFR (Non-Af Amer) TNP 10/18/17 08:20 BUN/Creatinine Ratio 18.0 10/18/17 08:20 Glucose 126 mg/dL (70-105) H 10/18/17 08:20 POC Glucose 106 MG/DL (70 - 105) H 10/13/17 09:54 Whole Bld Lactic Acid 1.49 mmol/L (0.60-1.99) 10/13/17 09:35 Calcium 8.5 mg/dL (8.6-10.3) L 10/18/17 08:20 Magnesium 1.9 mg/dL (1.9-2.7) 10/17/17 04:30 Total Bilirubin 0.6 mg/dL (0.3-1.0) 10/14/17 04:20 AST 15 U/L (13-39) 10/14/17 04:20 ALT 9 U/L (7-52) 10/14/17 04:20 Alkaline Phosphatase 91 U/L (34-104) 10/14/17 04:20 B-Natriuretic Peptide 429.0 pg/mL (5.0-100.0) H 10/17/17 04:30 Total Protein 7.7 gm/dL (6.0-8.3) 10/14/17 04:20 Albumin 2.5 gm/dL (3.7-5.3) L 10/14/17 04:20 Globulin 5.2 gm/dL 10/14/17 04:20 Albumin/Globulin Ratio 0.5 (1.0-1.8) L 10/14/17 04:20 Urine Source ECHOLS PORT 10/16/17 16:35 Urine Color YELLOW 10/16/17 16:35 Urine Clarity SLIGHTLY HAZY (CLEAR) 10/16/17 16:35 Urine pH 7.5 (4.6 - 8.0) 10/16/17 16:35 Ur Specific [place] 1.015 (1.005-1.030) 10/16/17 16:35 Urine Protein 30 mg/dL (NEGATIVE) H 10/16/17 16:35 Urine Glucose (UA) NEGATIVE mg/dL (NEGATIVE) 10/16/17 16:35 Urine Ketones NEGATIVE mg/dL (NEGATIVE) 10/16/17 16:35 Urine Blood TRACE (NEGATIVE) 10/16/17 16:35 Urine Nitrate NEGATIVE (NEGATIVE) 10/16/17 16:35 Urine Bilirubin NEGATIVE (NEGATIVE) 10/16/17 16:35 Urine Urobilinogen 1.0 E.U./dL (0.2 - 1.0) 10/16/17 16:35 Ur Leukocyte Esterase NEGATIVE (NEGATIVE) 10/16/17 16:35 Urine RBC 5-10 /hpf (0-5) H 10/16/17 16:35 Urine WBC 6-10 /hpf (0-5) H 10/16/17 16:35 Ur Epithelial Cells RARE /lpf (FEW) 10/16/17 16:35 Urine Bacteria FEW /hpf (NONE SEEN) 10/16/17 16:35 Ur Random Potassium 27.0 mmol/L 10/17/17 18:00 Urine Collection Time 24 hours 10/17/17 18:00 Urine Total Volume 1750 ml 10/17/17 18:00 Ur Potassium 24 Hour 47.3 mmol/24h (25.0-125.0) 10/17/17 18:00 Stool Occult Blood NEGATIVE (NEGATIVE) 10/17/17 04:20 Vancomycin Trough 14.4 ug/mL (5-10) H 10/18/17 08:20 Blood Type O POSITIVE 10/16/17 06:30 Antibody Screen NEGATIVE 10/16/17 06:30 Crossmatch See Detail 10/16/17 06:30 - Physical Exam Vitals and I&O: Vital Signs Temp 98.5 F 10/18/17 12:00 Pulse 79 10/18/17 12:55 Resp 20 10/18/17 12:00 BP 100/46 10/18/17 12:00 Pulse Ox 100 10/18/17 12:55 Intake & Output 10/17/17 10/18/17 10/18/17 18:59 06:59 18:59 Intake Total 300 1300 50 Output Total 2100 Balance 300 -800 50 Weight (lbs) 62.709 kg Intake: Intake, IV Amount 300 50 50 Piperacillin Sodium/ 50 50 50 Tazobact 3.375 gm In Sodium Chloride 0.9% 50 ml @ 100 mls/hr IV Q8HR [facility] Rx#:[id number] Vancomycin HCl 0.75 gm In 250 Sodium Chloride 0.9% 250 ml @ 165 mls/hr IV Q12H [facility] Rx#:[id number] Tube Feeding 950 Other 300 Output: Urine 2100 Other: Weight Source Bedscale Active Medications: Current Medications Acetaminophen (Tylenol 650mg/20.3ml Suspension) 650 mg GT Q4HR PRN PRN Reason: Mild Pain or Fever >101 Stop: 12/12/17 13:45 Last Admin: 10/13/17 17:59 Dose: 650 mg Albuterol Sulfate (Albuterol 2.5mg/3ml Neb Ud) 2.5 mg HHN Q3H PRN PRN Reason: SOB/WHEEZING/RESPIRATORY DISTR Stop: 12/12/17 13:45 Albuterol Sulfate (Albuterol 2.5mg/3ml Neb Ud) 2.5 mg HHN Q4HRT [facility] Stop: 12/12/17 18:59 Last Admin: 10/18/17 11:15 Dose: 2.5 mg Ascorbic Acid (Vitamin C) 500 mg PO DAILY [facility] Stop: 12/13/17 08:59 Last Admin: 10/18/17 08:31 Dose: 500 mg Chlorhexidine Gluconate (Peridex) 15 ml MM 0800,1999 [facility] Stop: 12/12/17 19:59 Last Admin: 10/18/17 08:32 Dose: 15 ml Dextrose (D50w) 50 ml IVP PRN PRN PRN Reason: B.S > 60 MG/DL Stop: 12/12/17 08:04 Enalaprilat (Vasotec) 1.25 mg IVP Q4HR PRN PRN Reason: SBP ABOVE 160 MMHG Stop: 12/12/17 08:58 Last Admin: 10/13/17 09:30 Dose: 1.25 mg Ferrous Sulfate (Iron) 450 mg GT DAILY [facility] Stop: 12/13/17 08:59 Last Admin: 10/18/17 08:30 Dose: 450 mg Piperacillin Sod/Tazobactam (Sod 3.375 gm/ Sodium Chloride) 50 mls @ 100 mls/ hr IV Q8HR [facility] Stop: 12/12/17 08:01 Last Infusion: 10/18/17 09:34 Dose: Infused Vancomycin HCl 1 gm/ Sodium (Chloride) 250 mls @ 165 mls/hr IV Q12H [facility] Stop: 12/17/17 09:59 Lactobacillus Rhamnosus (Culturelle 15b) 1 each PO DAILY [facility] Stop: 12/13/17 13:59 Last Admin: 10/18/17 08:31 Dose: 1 each Levetiracetam (Keppra) 250 mg PO Q12H [facility] Stop: 12/12/17 13:59 Last Admin: 10/18/17 01:52 Dose: 250 mg Lorazepam (Ativan) 0.5 mg GT Q6H PRN; Protocol PRN Reason: Anxiety Stop: 12/12/17 13:45 Miscellaneous (Vancomycin Iv Per Pharmacy) 1 ea PRN PRN PRN Reason: PROTOCOL Stop: 12/12/17 08:00 Miscellaneous (Vte Chemical Prophylaxis Screen/ Admission) 1 [facility] PRN PRN PRN Reason: PROTOCOL Stop: 12/13/17 10:44 Miscellaneous (Probiotic Screen) 1 [facility] PRN PRN PRN Reason: PROTOCOL Stop: 12/13/17 12:03 Morphine Sulfate (Morphine) 1 mg IVP Q4HR PRN PRN Reason: Pain (Moderate) Stop: 12/12/17 09:34 Last Admin: 10/18/17 10:54 Dose: 1 mg Morphine Sulfate (Morphine) 2 mg IVP Q4HR PRN PRN Reason: Pain (Severe) Stop: 12/12/17 09:35 Last Admin: 10/17/17 01:25 Dose: 2 mg Morphine Sulfate (Morphine Ir) 15 mg GT Q6H PRN PRN Reason: MOD/SEVERE PAIN Stop: 12/12/17 13:45 Pantoprazole Sodium (Protonix) 40 mg IVP DAILY [facility] Stop: 12/14/17 08:59 Last Admin: 10/18/17 08:32 Dose: 40 mg Potassium Chloride (Potassium Chloride Elixir) 20 meq GT DAILY [facility] Stop: 12/16/17 18:29 Last Admin: 10/18/17 08:31 Dose: 20 meq General: No acute distress, Other (Evidence of R craniotomy), no Mild distress HEENT: Atraumatic, Mucous membr. moist/pink, Other (evidence of skull/brain surgery with major defect) Neck: Supple, +2 carotid pulse wo bruit Cardiovascular: Regular rate, Normal S1, Normal S2 Lungs: Other (rhonchi, few congestion) Abdomen: Bowel sounds, Soft, no Tender, no Hepatomegaly, no Splenomegaly, no Distended, no Rebound Extremities: no Edema Neurological: Sensation intact Skin: no Rash Psych/Mental Status: Mood NL - Procedures Procedures: Procedures Procedure Code Date RESPIRATORY VENTILATION, 24-96 CONSECUTIVE HOURS [id number] 10/13/17 Assessment/Plan - Assessment Assessment: GT Malfnc S/P Replacement Hyponatremia Hypokalemia Right SDH, S/P Right Hemicranitomy RFVD Acute Decomp CHF Anemia of CD - Plan Plan: Lab - Result Diagrams 10/17/17 04:30 10/17/17 04:30 Current Medications Acetaminophen (Tylenol 650mg/20.3ml Suspension) 650 mg GT Q4HR PRN PRN Reason: Mild Pain or Fever >101 Stop: 12/12/17 13:45 Last Admin: 10/13/17 17:59 Dose: 650 mg Albuterol Sulfate (Albuterol 2.5mg/3ml Neb Ud) 2.5 mg HHN Q3H PRN PRN Reason: SOB/WHEEZING/RESPIRATORY DISTR Stop: 12/12/17 13:45 Albuterol Sulfate (Albuterol 2.5mg/3ml Neb Ud) 2.5 mg HHN Q4HRT [facility] Stop: 12/12/17 18:59 Last Admin: 10/17/17 15:01 Dose: 2.5 mg Ascorbic Acid (Vitamin C) 500 mg PO DAILY [facility] Stop: 12/13/17 08:59 Last Admin: 10/17/17 08:27 Dose: 500 mg Chlorhexidine Gluconate (Peridex) 15 ml MM 0800,2000 [facility] Stop: 12/12/17 19:59 Last Admin: 10/17/17 08:37 Dose: 15 ml Dextrose (D50w) 50 ml IVP PRN PRN PRN Reason: B.S > 60 MG/DL Stop: 12/12/17 08:04 Enalaprilat (Vasotec) 1.25 mg IVP Q4HR PRN PRN Reason: SBP ABOVE 160 MMHG Stop: 12/12/17 08:58 Last Admin: 10/13/17 09:30 Dose: 1.25 mg Ferrous Sulfate (Iron) 450 mg GT DAILY [facility] Stop: 12/13/17 08:59 Last Admin: 10/17/17 08:26 Dose: 450 mg Piperacillin Sod/Tazobactam (Sod 3.375 gm/ Sodium Chloride) 50 mls @ 100 mls/ hr IV Q8HR [facility] Stop: 12/12/17 08:01 Last Infusion: 10/17/17 15:13 Dose: Infused Vancomycin HCl 0.75 gm/ Sodium (Chloride) 250 mls @ 165 mls/hr IV Q12H [facility] Stop: 12/14/17 08:59 Last Infusion: 10/17/17 14:43 Dose: Infused Lactobacillus Rhamnosus (Culturelle 15b) 1 each PO DAILY [facility] Stop: 12/13/17 13:59 Last Admin: 10/17/17 08:26 Dose: 1 each Levetiracetam (Keppra) 250 mg PO Q12H [facility] Stop: 12/12/17 13:59 Last Admin: 10/17/17 15:13 Dose: 250 mg Lorazepam (Ativan) 0.5 mg GT Q6H PRN; Protocol PRN Reason: Anxiety Stop: 12/12/17 13:45 Miscellaneous (Vancomycin Iv Per Pharmacy) 1 ea PRN PRN PRN Reason: PROTOCOL Stop: 12/12/17 08:00 Miscellaneous (Vte Chemical Prophylaxis Screen/ Admission) 1 ea PRN PRN PRN Reason: PROTOCOL Stop: 12/13/17 10:44 Miscellaneous (Probiotic Screen) 1 ea PRN PRN PRN Reason: PROTOCOL Stop: 12/13/17 12:03 Morphine Sulfate (Morphine) 1 mg IVP Q4HR PRN PRN Reason: Pain (Moderate) Stop: 12/12/17 09:34 Last Admin: 10/17/17 15:18 Dose: 1 mg Morphine Sulfate (Morphine) 2 mg IVP Q4HR PRN PRN Reason: Pain (Severe) Stop: 12/12/17 09:35 Last Admin: 10/17/17 01:25 Dose: 2 mg Morphine Sulfate (Morphine Ir) 15 mg GT Q6H PRN PRN Reason: MOD/SEVERE PAIN Stop: 12/12/17 13:45 Pantoprazole Sodium (Protonix) 40 mg IVP DAILY [facility] Stop: 12/14/17 08:59 Last Admin: 10/17/17 08:26 Dose: 40 mg Potassium Chloride (Potassium Chloride Elixir) 20 meq GT DAILY [facility] Stop: 12/16/17 18:29 Lab - Result Diagrams 10/17/17 04:30 10/18/17 08:20 Na down to 132 K up to 3.9, started po K CXR still w/ B/L infiltrates, pulm edema DC IVF due to CHF on CXR, elevated BNP f/u electrolytes ave UOP > 2L Nutritional Asmnt/Malnutr-PDOC - Dietary Evaluation Malnutrition Findings (Please click <Entered> for more info): Nutritional Asmnt/Malnutrition Start: 10/13/17 15: 20 Text: Status: Complete Freq: Protocol: Document 10/13/17 15:21 LCHENG (Rec: 10/13/17 15:42 [email or web address] [id number]) Nutritional Asmnt/Malnutrition Patient General Information Nutritional Screening High Risk Diagnosis hyponatremia, J tube placement Pertinent Medical Hx/Surgical Hx CVA/TIA, ESRD, dementia, PEG/ Gtube, trach Subjective Information Pt seen on vent via trach. Per RN, no nutrition plan at this time from MD. pt is on NPO status. Current Diet Order/ Nutrition Support no diet order. Pertinent Medications vit C, Iron, piperacillin, nacl 0.9%, vancomycin Pertinent Labs 6/5 Na 129, cl 89, Cr 0.4 Nutritional Hx/Data Height 1.6 m Height (Calculated Centimeters) 160.0 Current Weight (lbs) 50.349 kg Weight (Calculated Kilograms) 50.3 Weight (Calculated Grams) 89352.8 [place] Body Weight 115 Body Mass Index (BMI) 19.6 Weight Status Approriate GI Symptoms GI Symptoms None Last BM not indicated Difficult in: None Skin Integrity/Comment: intact Estimated Nutritional Goals BEE in Kcals: Using Current wt Calories/Kcals/Kg 25-30 Kcals Calculated 0054-4516 Protein: Using Current wt Protein g/k-1.2 Protein Calculated 50-60 Fluid: ml 1250-1500ml (1ml/kcal) Nutritional Problem 2. Problem Problem inadequate energy intake Etiology J tube malfunction Signs/Symptoms: nutrition support not initiated 1. Problem Problem altered nutrition labs Etiology electrolytes imbalance Signs/Symptoms: Na 129 Malnutrition Alert Is there a minimum of two criteria No selected? Query Text:Check all the applicable criteria. A minimum of two criteria are recommended for diagnosis of either severe or non-severe malnutrition. Malnutrition Related to Morbid Obesity Malnutrition related to morbid obesity No Intervention/Recommendation Comments 1. Monitor NPO status 2. If TF needed, recommend Fibersource HN 55m/hr x 20hr. This will provide 1320kcal, 59g protein, 891ml free water. 3. Monitor wt, skin integrity and labs 4. F/U as high risk in 2 days, 6/ Expected Outcomes/Goals Expected Outcomes/Goals 1. Pt to meet at least 75% of nutritional needs. 2. Wt stability, skin to remain intact, labs to approach WNL.
--- NOTE | 2017-10-18 23:09 | Infectious Disease Prog Note ---
Infectious Disease Subjective - Review of Systems Service Date: 10/18/17 Subjective: There is no new change, no fever. Infectious Disease Objective - Results Result Diagrams: 10/17/17 04:30 10/18/17 08:20 Recent Labs: Laboratory Last Values WBC 9.2 Th/cmm (4.8-10.8) 10/17/17 04:30 RBC 3.54 Mil/cmm (3.80-5.20) L 10/17/17 04:30 Hgb 9.5 gm/dL (12-16) L 10/17/17 04:30 Hct 29.1 % (41.0-60) L D 10/17/17 04:30 MCV 82.2 fl (81-100) 10/17/17 04:30 MCH 26.8 pg (27.0-31.0) L 10/17/17 04:30 MCHC Differential 32.5 pg (28.0-36.0) 10/17/17 04:30 RDW 19.6 % (11.5-20.0) 10/17/17 04:30 Plt Count 421 Th/cmm (150-400) H 10/17/17 04:30 MPV 7.4 fl 10/17/17 04:30 Neutrophils % 61.5 % (40.0-80.0) 10/17/17 04:30 Lymphocytes % 23.3 % (20.0-50.0) 10/17/17 04:30 Monocytes % 11.7 % (2.0-10.0) H 10/17/17 04:30 Eosinophils % 2.9 % (0.0-5.0) 10/17/17 04:30 Basophils % 0.6 % (0.0-2.0) 10/17/17 04:30 Sodium 132 mEq/L (136-145) L 10/18/17 08:20 Potassium 3.9 mEq/L (3.5-5.1) 10/18/17 08:20 Chloride 103 mEq/L (98-107) 10/18/17 08:20 Carbon Dioxide 23.4 mEq/L (21.0-31.0) 10/18/17 08:20 Anion Gap 9.5 (7.0-16.0) 10/18/17 08:20 BUN 9 mg/dL (7-25) 10/18/17 08:20 Creatinine 0.5 mg/dL (0.6-1.2) L 10/18/17 08:20 Est GFR ( Amer) TNP 10/18/17 08:20 Est GFR (Non-Af Amer) TNP 10/18/17 08:20 BUN/Creatinine Ratio 18.0 10/18/17 08:20 Glucose 126 mg/dL (70-105) H 10/18/17 08:20 POC Glucose 106 MG/DL (70 - 105) H 10/13/17 09:54 Whole Bld Lactic Acid 1.49 mmol/L (0.60-1.99) 10/13/17 09:35 Calcium 8.5 mg/dL (8.6-10.3) L 10/18/17 08:20 Magnesium 1.9 mg/dL (1.9-2.7) 10/17/17 04:30 Total Bilirubin 0.6 mg/dL (0.3-1.0) 10/14/17 04:20 AST 15 U/L (13-39) 10/14/17 04:20 ALT 9 U/L (7-52) 10/14/17 04:20 Alkaline Phosphatase 91 U/L (34-104) 10/14/17 04:20 B-Natriuretic Peptide 429.0 pg/mL (5.0-100.0) H 10/17/17 04:30 Total Protein 7.7 gm/dL (6.0-8.3) 10/14/17 04:20 Albumin 2.5 gm/dL (3.7-5.3) L 10/14/17 04:20 Globulin 5.2 gm/dL 10/14/17 04:20 Albumin/Globulin Ratio 0.5 (1.0-1.8) L 10/14/17 04:20 Urine Source ECHOLS PORT 10/16/17 16:35 Urine Color YELLOW 10/16/17 16:35 Urine Clarity SLIGHTLY HAZY (CLEAR) 10/16/17 16:35 Urine pH 7.5 (4.6 - 8.0) 10/16/17 16:35 Ur Specific [place] 1.015 (1.005-1.030) 10/16/17 16:35 Urine Protein 30 mg/dL (NEGATIVE) H 10/16/17 16:35 Urine Glucose (UA) NEGATIVE mg/dL (NEGATIVE) 10/16/17 16:35 Urine Ketones NEGATIVE mg/dL (NEGATIVE) 10/16/17 16:35 Urine Blood TRACE (NEGATIVE) 10/16/17 16:35 Urine Nitrate NEGATIVE (NEGATIVE) 10/16/17 16:35 Urine Bilirubin NEGATIVE (NEGATIVE) 10/16/17 16:35 Urine Urobilinogen 1.0 E.U./dL (0.2 - 1.0) 10/16/17 16:35 Ur Leukocyte Esterase NEGATIVE (NEGATIVE) 10/16/17 16:35 Urine RBC 5-10 /hpf (0-5) H 10/16/17 16:35 Urine WBC 6-10 /hpf (0-5) H 10/16/17 16:35 Ur Epithelial Cells RARE /lpf (FEW) 10/16/17 16:35 Urine Bacteria FEW /hpf (NONE SEEN) 10/16/17 16:35 Ur Random Potassium 27.0 mmol/L 10/17/17 18:00 Urine Collection Time 24 hours 10/17/17 18:00 Urine Total Volume 1750 ml 10/17/17 18:00 Ur Potassium 24 Hour 47.3 mmol/24h (25.0-125.0) 10/17/17 18:00 Stool Occult Blood NEGATIVE (NEGATIVE) 10/17/17 04:20 Vancomycin Trough 14.4 ug/mL (5-10) H 10/18/17 08:20 Blood Type O POSITIVE 10/16/17 06:30 Antibody Screen NEGATIVE 10/16/17 06:30 Crossmatch See Detail 10/16/17 06:30 - Physical Exam Vitals and I&O: Vital Signs Temp 97.4 F 10/18/17 16:00 Pulse 83 10/18/17 21:00 Resp 22 10/18/17 18:00 BP 106/57 10/18/17 18:00 Pulse Ox 99 10/18/17 21:00 Intake & Output 10/18/17 10/18/17 10/19/17 06:59 18:59 06:59 Intake Total 1300 350 900 Output Total 2100 900 Balance -800 350 0 Weight (lbs) 62.709 kg 61.054 kg Intake: Intake, IV Amount 50 350 Piperacillin Sodium/ 50 100 Tazobact 3.375 gm In Sodium Chloride 0.9% 50 ml @ 100 mls/hr IV Q8HR [facility] Rx#:[id number] Vancomycin HCl 1 gm In 250 Sodium Chloride 0.9% 250 ml @ 165 mls/hr IV Q12H [facility] Rx#:[id number] Tube Feeding 950 600 Other 300 300 Output: Urine 2100 900 Other: # Bowel Movements 0 Weight Source Bedscale Bedscale Active Medications: Current Medications Acetaminophen (Tylenol 650mg/20.3ml Suspension) 650 mg GT Q4HR PRN PRN Reason: Mild Pain or Fever >101 Stop: 12/12/17 13:45 Last Admin: 10/13/17 17:59 Dose: 650 mg Albuterol Sulfate (Albuterol 2.5mg/3ml Neb Ud) 2.5 mg HHN Q3H PRN PRN Reason: SOB/WHEEZING/RESPIRATORY DISTR Stop: 12/12/17 13:45 Albuterol Sulfate (Albuterol 2.5mg/3ml Neb Ud) 2.5 mg HHN Q4HRT [facility] Stop: 12/12/17 18:59 Last Admin: 10/18/17 19:13 Dose: 2.5 mg Ascorbic Acid (Vitamin C) 500 mg PO DAILY [facility] Stop: 12/13/17 08:59 Last Admin: 10/18/17 08:31 Dose: 500 mg Chlorhexidine Gluconate (Peridex) 15 ml MM 0800,1999 [facility] Stop: 12/12/17 19:59 Last Admin: 10/18/17 08:32 Dose: 15 ml Dextrose (D50w) 50 ml IVP PRN PRN PRN Reason: B.S > 60 MG/DL Stop: 12/12/17 08:04 Enalaprilat (Vasotec) 1.25 mg IVP Q4HR PRN PRN Reason: SBP ABOVE 160 MMHG Stop: 12/12/17 08:58 Last Admin: 10/13/17 09:30 Dose: 1.25 mg Ferrous Sulfate (Iron) 450 mg GT DAILY [facility] Stop: 12/13/17 08:59 Last Admin: 10/18/17 08:30 Dose: 450 mg Piperacillin Sod/Tazobactam (Sod 3.375 gm/ Sodium Chloride) 50 mls @ 100 mls/ hr IV Q8HR [facility] Stop: 12/12/17 08:01 Last Admin: 10/18/17 23:04 Dose: 100 mls/hr Vancomycin HCl 1 gm/ Sodium (Chloride) 250 mls @ 165 mls/hr IV Q12H [facility] Stop: 12/17/17 09:59 Last Admin: 10/18/17 22:37 Dose: 165 mls/hr Lactobacillus Rhamnosus (Culturelle 15b) 1 each PO DAILY [facility] Stop: 12/13/17 13:59 Last Admin: 10/18/17 08:31 Dose: 1 each Levetiracetam (Keppra) 250 mg PO Q12H [facility] Stop: 12/12/17 13:59 Last Admin: 10/18/17 15:10 Dose: 250 mg Lorazepam (Ativan) 0.5 mg GT Q6H PRN; Protocol PRN Reason: Anxiety Stop: 12/12/17 13:45 Miscellaneous (Vancomycin Iv Per Pharmacy) 1 ea PRN PRN PRN Reason: PROTOCOL Stop: 12/12/17 08:00 Miscellaneous (Vte Chemical Prophylaxis Screen/ Admission) 1 ea PRN PRN PRN Reason: PROTOCOL Stop: 12/13/17 10:44 Miscellaneous (Probiotic Screen) 1 ea PRN PRN PRN Reason: PROTOCOL Stop: 12/13/17 12:03 Morphine Sulfate (Morphine) 1 mg IVP Q4HR PRN PRN Reason: Pain (Moderate) Stop: 12/12/17 09:34 Last Admin: 10/18/17 16:25 Dose: 1 mg Morphine Sulfate (Morphine) 2 mg IVP Q4HR PRN PRN Reason: Pain (Severe) Stop: 12/12/17 09:35 Last Admin: 10/17/17 01:25 Dose: 2 mg Morphine Sulfate (Morphine Ir) 15 mg GT Q6H PRN PRN Reason: MOD/SEVERE PAIN Stop: 12/12/17 13:45 Pantoprazole Sodium (Protonix) 40 mg IVP DAILY [facility] Stop: 12/14/17 08:59 Last Admin: 10/18/17 08:32 Dose: 40 mg Potassium Chloride (Potassium Chloride Elixir) 20 meq GT DAILY [facility] Stop: 12/16/17 18:29 Last Admin: 10/18/17 08:31 Dose: 20 meq General: no acute distress, well developed, well nourished HEENT: PERRLA, EOMI, other (right-sided scalp is a) Neck: supple, no thyromegaly, no lymphadenopathy, no rigid Cardiovascular: S1S2, regular Lungs: clear to percussion, rhonchi Abdomen: soft, other (G-tube site is okay), no tender, no distended, no rebound Extremities: no cyanosis, no clubbing Neurological: other (rigidity status) - Procedures Procedures: Procedures Procedure Code Date RESPIRATORY VENTILATION, 24-96 CONSECUTIVE HOURS [id number] 10/13/17 Infectious Disease Assmt/Plan - Assessment Assessment: 1. Pneumonia. 2. G-tube malfunction. 3. New J-tube placement. 4. Vent dependent respiratory failure. 5. Vegetative status. 6. UTI. - Plan Plan: CPM. Antibiotics: Meropenem day #2 of 10 Nutritional Asmnt/Malnutr-PDOC - Dietary Evaluation Malnutrition Findings (Please click <Entered> for more info): Nutritional Asmnt/Malnutrition Start: 10/13/17 15: 20 Text: Status: Complete Freq: Protocol: Document 10/13/17 15:21 [email or web address] (Rec: 10/13/17 15:42 [facility] Nutritional Asmnt/Malnutrition Patient General Information Nutritional Screening High Risk Diagnosis hyponatremia, J tube placement Pertinent Medical Hx/Surgical Hx CVA/TIA, ESRD, dementia, PEG/ Gtube, trach Subjective Information Pt seen on vent via trach. Per RN, no nutrition plan at this time from . pt is on NPO status. Current Diet Order/ Nutrition Support no diet order. Pertinent Medications vit C, Iron, piperacillin, nacl 0.9%, vancomycin Pertinent Labs 10/13 Na 129, cl 89, Cr 0.4 Nutritional Hx/Data Height 1.6 m Height (Calculated Centimeters) 160.0 Current Weight (lbs) 50.349 kg Weight (Calculated Kilograms) 50.3 Weight (Calculated Grams) 00996.8 [place] Body Weight 115 Body Mass Index (BMI) 19.6 Weight Status Approriate GI Symptoms GI Symptoms None Last BM not indicated Difficult in: None Skin Integrity/Comment: intact Estimated Nutritional Goals BEE in Kcals: Using Current wt Calories/Kcals/Kg 25-30 Kcals Calculated 3071-3448 Protein: Using Current wt Protein g/k-1.2 Protein Calculated 50-60 Fluid: ml 1250-1500ml (1ml/kcal) Nutritional Problem 2. Problem Problem inadequate energy intake Etiology J tube malfunction Signs/Symptoms: nutrition support not initiated 1. Problem Problem altered nutrition labs Etiology electrolytes imbalance Signs/Symptoms: Na 129 Malnutrition Alert Is there a minimum of two criteria No selected? Query Text:Check all the applicable criteria. A minimum of two criteria are recommended for diagnosis of either severe or non-severe malnutrition. Malnutrition Related to Morbid Obesity Malnutrition related to morbid obesity No Intervention/Recommendation Comments 1. Monitor NPO status 2. If TF needed, recommend Fibersource HN 55m/hr x 20hr. This will provide 1320kcal, 59g protein, 891ml free water. 3. Monitor wt, skin integrity and labs 4. F/U as high risk in 2 days, 6/7 Expected Outcomes/Goals Expected Outcomes/Goals 1. Pt to meet at least 75% of nutritional needs. 2. Wt stability, skin to remain intact, labs to approach WNL.
[2017-10-19] MEDS: Albuterol Nebulizer 2.5mg/3mL HHN SCH ×6 (03:01→22:22)
[2017-10-19 04:37] LABS: ANION GAP 8.9 (7.0-16.0); BUN - UREA NITROGEN 8 mg/dL (7-25); CALCIUM SERUM 8.8 mg/dL (8.6-10.3); CARBON DIOXIDE 25.2 mEq/L (21.0-31.0); CHLORIDE 102 mEq/L (98-107); CREATININE - SERUM 0.5 mg/dL (0.6-1.2); GLUCOSE 95 mg/dL (70-105); POTASSIUM SERUM 4.1 mEq/L (3.5-5.1); SODIUM SERUM 132 mEq/L (136-145)
[2017-10-19] MEDS: Morphine Sulfate 4 mg/mL 1mL Syr IVP PRN ×3 (04:39→18:13)
[2017-10-19 07:38] LABS: % BASOPHILS 0.6 % (0.0-2.0); % EOSINOPHILS 4.6 % (0.0-5.0); % MONOCYTES 10.7 % (2.0-10.0); % NEUTROPHILS 53.1 % (40.0-80.0); EOSINOPHILE ABSOLUTE 0.3 Th/cmm (0.1-0.4); HEMATOCRIT 29.9 % (41.0-60); HEMOGLOBIN 9.9 gm/dL (12-16); LYMPHOCYTE ABSOLUTE 2.3 Th/cmm (1.5-3.0); MEAN CELL VOLUME 82.1 fl (81-100); MEAN CORPUSCULAR HEMOGLOBIN 27.3 pg (27.0-31.0); MEAN CORPUSCULAR HGB CONC 33.3 pg (28.0-36.0); MEAN PLATELET VOLUME 8.2 fl; MONOCYTE ABSOLUTE 0.8 Th/cmm (0.3-1.0); PLATELET COUNT 441 Th/cmm (150-400); RED BLOOD COUNT 3.64 Mil/cmm (3.80-5.20); RED CELL DISTRIBUTION WIDTH 19.7 % (11.5-20.0); WHITE BLOOD COUNT 7.4 Th/cmm (4.8-10.8)
[2017-10-19] MEDS: Chlorhexidine Gluconate 0.12% 15mL Mouthwash MM SCH ×2 (08:32→20:22)
[2017-10-19] MEDS: Ferrous Sulfate 300 MG/5 ML UDC GT SCH (08:32)
[2017-10-19] MEDS: Lactobacillus Rhamnosus GG 15 Billion CFU CAP.SPRINK PO SCH (08:33)
[2017-10-19] MEDS: Multivitamin w/ Minerals Tab GT SCH (08:33)
[2017-10-19] MEDS: Potassium Chloride Elixir 20 mEq /15 mL UDC GT SCH (08:33)
--- NOTE | 2017-10-19 08:35 | Diagnostic Imaging Report ---
CHEST X-RAY: AP view INDICATION: Shortness of breath COMPARISON: 10/17/2017 FINDINGS: Support devices are stable. Findings of CHF are again noted with bilateral infiltrates and effusions. Mild cardiomegaly is noted. IMPRESSION: Persistent CHF with bilateral infiltrates and effusions.
--- NOTE | 2017-10-19 13:18 | General Progress Note ---
Subjective - Review of Systems Service Date: 10/19/17 Subjective: tachypneic (anxious), on vent Objective - Results Result Diagrams: 10/19/17 04:15 10/19/17 04:15 Recent Labs: Laboratory Last Values WBC 7.4 Th/cmm (4.8-10.8) 10/19/17 04:15 RBC 3.64 Mil/cmm (3.80-5.20) L 10/19/17 04:15 Hgb 9.9 gm/dL (12-16) L 10/19/17 04:15 Hct 29.9 % (41.0-60) L 10/19/17 04:15 MCV 82.1 fl (81-100) 10/19/17 04:15 MCH 27.3 pg (27.0-31.0) 10/19/17 04:15 MCHC Differential 33.3 pg (28.0-36.0) 10/19/17 04:15 RDW 19.7 % (11.5-20.0) 10/19/17 04:15 Plt Count 441 Th/cmm (150-400) H 10/19/17 04:15 MPV 8.2 fl 10/19/17 04:15 Neutrophils % 53.1 % (40.0-80.0) 10/19/17 04:15 Lymphocytes % 31.0 % (20.0-50.0) 10/19/17 04:15 Monocytes % 10.7 % (2.0-10.0) H 10/19/17 04:15 Eosinophils % 4.6 % (0.0-5.0) 10/19/17 04:15 Basophils % 0.6 % (0.0-2.0) 10/19/17 04:15 Sodium 132 mEq/L (136-145) L 10/19/17 04:15 Potassium 4.1 mEq/L (3.5-5.1) 10/19/17 04:15 Chloride 102 mEq/L (98-107) 10/19/17 04:15 Carbon Dioxide 25.2 mEq/L (21.0-31.0) 10/19/17 04:15 Anion Gap 8.9 (7.0-16.0) 10/19/17 04:15 BUN 8 mg/dL (7-25) 10/19/17 04:15 Creatinine 0.5 mg/dL (0.6-1.2) L 10/19/17 04:15 Est GFR ( Amer) TNP 10/19/17 04:15 Est GFR (Non-Af Amer) TNP 10/19/17 04:15 BUN/Creatinine Ratio 16.0 10/19/17 04:15 Glucose 95 mg/dL (70-105) 10/19/17 04:15 POC Glucose 106 MG/DL (70 - 105) H 10/13/17 09:54 Whole Bld Lactic Acid 1.49 mmol/L (0.60-1.99) 10/13/17 09:35 Calcium 8.8 mg/dL (8.6-10.3) 10/19/17 04:15 Magnesium 1.9 mg/dL (1.9-2.7) 10/17/17 04:30 Total Bilirubin 0.6 mg/dL (0.3-1.0) 10/14/17 04:20 AST 15 U/L (13-39) 10/14/17 04:20 ALT 9 U/L (7-52) 10/14/17 04:20 Alkaline Phosphatase 91 U/L (34-104) 10/14/17 04:20 B-Natriuretic Peptide 429.0 pg/mL (5.0-100.0) H 10/17/17 04:30 Total Protein 7.7 gm/dL (6.0-8.3) 10/14/17 04:20 Albumin 2.5 gm/dL (3.7-5.3) L 10/14/17 04:20 Globulin 5.2 gm/dL 10/14/17 04:20 Albumin/Globulin Ratio 0.5 (1.0-1.8) L 10/14/17 04:20 Urine Source ECHOLS PORT 10/16/17 16:35 Urine Color YELLOW 10/16/17 16:35 Urine Clarity SLIGHTLY HAZY (CLEAR) 10/16/17 16:35 Urine pH 7.5 (4.6 - 8.0) 10/16/17 16:35 Ur Specific [place] 1.015 (1.005-1.030) 10/16/17 16:35 Urine Protein 30 mg/dL (NEGATIVE) H 10/16/17 16:35 Urine Glucose (UA) NEGATIVE mg/dL (NEGATIVE) 10/16/17 16:35 Urine Ketones NEGATIVE mg/dL (NEGATIVE) 10/16/17 16:35 Urine Blood TRACE (NEGATIVE) 10/16/17 16:35 Urine Nitrate NEGATIVE (NEGATIVE) 10/16/17 16:35 Urine Bilirubin NEGATIVE (NEGATIVE) 10/16/17 16:35 Urine Urobilinogen 1.0 E.U./dL (0.2 - 1.0) 10/16/17 16:35 Ur Leukocyte Esterase NEGATIVE (NEGATIVE) 10/16/17 16:35 Urine RBC 5-10 /hpf (0-5) H 10/16/17 16:35 Urine WBC 6-10 /hpf (0-5) H 10/16/17 16:35 Ur Epithelial Cells RARE /lpf (FEW) 10/16/17 16:35 Urine Bacteria FEW /hpf (NONE SEEN) 10/16/17 16:35 Ur Random Potassium 27.0 mmol/L 10/17/17 18:00 Urine Collection Time 24 hours 10/17/17 18:00 Urine Total Volume 1750 ml 10/17/17 18:00 Ur Potassium 24 Hour 47.3 mmol/24h (25.0-125.0) 10/17/17 18:00 Stool Occult Blood NEGATIVE (NEGATIVE) 10/17/17 04:20 Vancomycin Trough 14.4 ug/mL (5-10) H 10/18/17 08:20 Blood Type O POSITIVE 10/16/17 06:30 Antibody Screen NEGATIVE 10/16/17 06:30 Crossmatch See Detail 10/16/17 06:30 - Physical Exam Vitals and I&O: Vital Signs Temp 97.6 F 10/19/17 08:00 Pulse 72 10/19/17 11:32 Resp 21 10/19/17 11:00 BP 148/83 10/19/17 11:00 Pulse Ox 98 10/19/17 11:32 Intake & Output 10/18/17 10/19/17 10/19/17 18:59 06:59 18:59 Intake Total 350 1300 Output Total 900 Balance 350 400 Weight (lbs) 61.054 kg Intake: Intake, IV Amount 350 300 Piperacillin Sodium/ 100 50 Tazobact 3.375 gm In Sodium Chloride 0.9% 50 ml @ 100 mls/hr IV Q8HR [facility] Rx#:[id number] Vancomycin HCl 1 gm In 250 250 Sodium Chloride 0.9% 250 ml @ 165 mls/hr IV Q12H [facility] Rx#:[id number] Tube Feeding 700 Other 300 Output: Urine 900 Other: # Bowel Movements 0 Weight Source Bedscale Active Medications: Current Medications Acetaminophen (Tylenol 650mg/20.3ml Suspension) 650 mg GT Q4HR PRN PRN Reason: Mild Pain or Fever >101 Stop: 12/12/17 13:45 Last Admin: 10/13/17 17:59 Dose: 650 mg Albuterol Sulfate (Albuterol 2.5mg/3ml Neb Ud) 2.5 mg HHN Q3H PRN PRN Reason: SOB/WHEEZING/RESPIRATORY DISTR Stop: 12/12/17 13:45 Albuterol Sulfate (Albuterol 2.5mg/3ml Neb Ud) 2.5 mg HHN Q4HRT [facility] Stop: 12/12/17 18:59 Last Admin: 10/19/17 11:32 Dose: 2.5 mg Ascorbic Acid (Vitamin C) 500 mg PO DAILY [facility] Stop: 12/13/17 08:59 Last Admin: 10/19/17 08:33 Dose: 500 mg Chlorhexidine Gluconate (Peridex) 15 ml MM 0800,1999 [facility] Stop: 12/12/17 19:59 Last Admin: 10/19/17 08:32 Dose: 15 ml Dextrose (D50w) 50 ml IVP PRN PRN PRN Reason: B.S > 60 MG/DL Stop: 12/12/17 08:04 Enalaprilat (Vasotec) 1.25 mg IVP Q4HR PRN PRN Reason: SBP ABOVE 160 MMHG Stop: 12/12/17 08:58 Last Admin: 10/13/17 09:30 Dose: 1.25 mg Ferrous Sulfate (Iron) 450 mg GT DAILY [facility] Stop: 12/13/17 08:59 Last Admin: 10/19/17 08:32 Dose: 450 mg Piperacillin Sod/Tazobactam (Sod 3.375 gm/ Sodium Chloride) 50 mls @ 100 mls/ hr IV Q8HR [facility] Stop: 12/12/17 08:01 Last Admin: 10/19/17 05:37 Dose: 100 mls/hr Vancomycin HCl 1 gm/ Sodium (Chloride) 250 mls @ 165 mls/hr IV Q12H [facility] Stop: 12/17/17 09:59 Last Admin: 10/19/17 10:21 Dose: 165 mls/hr Lactobacillus Rhamnosus (Culturelle 15b) 1 each PO DAILY [facility] Stop: 12/13/17 13:59 Last Admin: 10/19/17 08:33 Dose: 1 each Levetiracetam (Keppra) 250 mg PO Q12H [facility] Stop: 12/12/17 13:59 Last Admin: 10/19/17 03:25 Dose: 250 mg Lorazepam (Ativan) 0.5 mg GT Q6H PRN; Protocol PRN Reason: Anxiety Stop: 12/12/17 13:45 Miscellaneous (Vancomycin Iv Per Pharmacy) 1 [facility] PRN PRN PRN Reason: PROTOCOL Stop: 12/12/17 08:00 Miscellaneous (Vte Chemical Prophylaxis Screen/ Admission) 1 [facility] PRN PRN PRN Reason: PROTOCOL Stop: 12/13/17 10:44 Miscellaneous (Probiotic Screen) 1 [facility] PRN PRN PRN Reason: PROTOCOL Stop: 12/13/17 12:03 Morphine Sulfate (Morphine) 1 mg IVP Q4HR PRN PRN Reason: Pain (Moderate) Stop: 12/12/17 09:34 Last Admin: 10/18/17 16:25 Dose: 1 mg Morphine Sulfate (Morphine) 2 mg IVP Q4HR PRN PRN Reason: Pain (Severe) Stop: 12/12/17 09:35 Last Admin: 10/19/17 04:39 Dose: 2 mg Morphine Sulfate (Morphine Ir) 15 mg GT Q6H PRN PRN Reason: MOD/SEVERE PAIN Stop: 12/12/17 13:45 Pantoprazole Sodium (Protonix) 40 mg IVP DAILY [facility] Stop: 12/14/17 08:59 Last Admin: 10/19/17 08:33 Dose: 40 mg Potassium Chloride (Potassium Chloride Elixir) 20 meq GT DAILY [facility] Stop: 12/16/17 18:29 Last Admin: 10/19/17 08:33 Dose: 20 meq General: Moderate distress, Other (Evidence of R craniotomy) HEENT: Atraumatic, Mucous membr. moist/pink, Other (evidence of skull/brain surgery with major defect) Neck: Supple, +2 carotid pulse wo bruit Cardiovascular: Regular rate, Normal S1, Normal S2 Lungs: Other (rhonchi, few congestion) Abdomen: Bowel sounds, Soft, no Tender, no Hepatomegaly, no Splenomegaly, no Distended, no Rebound Extremities: no Edema Neurological: Sensation intact Skin: no Rash Psych/Mental Status: Mood NL - Procedures Procedures: Procedures Procedure Code Date RESPIRATORY VENTILATION, GREATER THAN 96 CONSECUTIVE HOURS [id number] 10/13/17 TRANSFUSE NONAUT RED BLOOD CELLS IN PERIPH VEIN, PERC 43342M2 10/13/17 Assessment/Plan - Assessment Assessment: GT Malfnc S/P Replacement Hyponatremia Hypokalemia Right SDH, S/P Right Hemicranitomy RFVD Acute Decomp CHF Anemia of CD - Plan Plan: Lab - Result Diagrams 10/17/17 04:30 10/17/17 04:30 Current Medications Acetaminophen (Tylenol 650mg/20.3ml Suspension) 650 mg GT Q4HR PRN PRN Reason: Mild Pain or Fever >101 Stop: 12/12/17 13:45 Last Admin: 10/13/17 17:59 Dose: 650 mg Albuterol Sulfate (Albuterol 2.5mg/3ml Neb Ud) 2.5 mg HHN Q3H PRN PRN Reason: SOB/WHEEZING/RESPIRATORY DISTR Stop: 12/12/17 13:45 Albuterol Sulfate (Albuterol 2.5mg/3ml Neb Ud) 2.5 mg HHN Q4HRT [facility] Stop: 12/12/17 18:59 Last Admin: 10/17/17 15:01 Dose: 2.5 mg Ascorbic Acid (Vitamin C) 500 mg PO DAILY [facility] Stop: 12/13/17 08:59 Last Admin: 10/17/17 08:27 Dose: 500 mg Chlorhexidine Gluconate (Peridex) 15 ml MM 0800,2000 [facility] Stop: 12/12/17 19:59 Last Admin: 10/17/17 08:37 Dose: 15 ml Dextrose (D50w) 50 ml IVP PRN PRN PRN Reason: B.S > 60 MG/DL Stop: 12/12/17 08:04 Enalaprilat (Vasotec) 1.25 mg IVP Q4HR PRN PRN Reason: SBP ABOVE 160 MMHG Stop: 12/12/17 08:58 Last Admin: 10/13/17 09:30 Dose: 1.25 mg Ferrous Sulfate (Iron) 450 mg GT DAILY [facility] Stop: 12/13/17 08:59 Last Admin: 10/17/17 08:26 Dose: 450 mg Piperacillin Sod/Tazobactam (Sod 3.375 gm/ Sodium Chloride) 50 mls @ 100 mls/ hr IV Q8HR [facility] Stop: 12/12/17 08:01 Last Infusion: 10/17/17 15:13 Dose: Infused Vancomycin HCl 0.75 gm/ Sodium (Chloride) 250 mls @ 165 mls/hr IV Q12H [facility] Stop: 12/14/17 08:59 Last Infusion: 10/17/17 14:43 Dose: Infused Lactobacillus Rhamnosus (Culturelle 15b) 1 each PO DAILY [facility] Stop: 12/13/17 13:59 Last Admin: 10/17/17 08:26 Dose: 1 each Levetiracetam (Keppra) 250 mg PO Q12H [facility] Stop: 12/12/17 13:59 Last Admin: 10/17/17 15:13 Dose: 250 mg Lorazepam (Ativan) 0.5 mg GT Q6H PRN; Protocol PRN Reason: Anxiety Stop: 12/12/17 13:45 Miscellaneous (Vancomycin Iv Per Pharmacy) 1 [facility] PRN PRN PRN Reason: PROTOCOL Stop: 12/12/17 08:00 Miscellaneous (Vte Chemical Prophylaxis Screen/ Admission) 1 [facility] PRN PRN PRN Reason: PROTOCOL Stop: 12/13/17 10:44 Miscellaneous (Probiotic Screen) 1 [facility] PRN PRN PRN Reason: PROTOCOL Stop: 12/13/17 12:03 Morphine Sulfate (Morphine) 1 mg IVP Q4HR PRN PRN Reason: Pain (Moderate) Stop: 12/12/17 09:34 Last Admin: 10/17/17 15:18 Dose: 1 mg Morphine Sulfate (Morphine) 2 mg IVP Q4HR PRN PRN Reason: Pain (Severe) Stop: 12/12/17 09:35 Last Admin: 10/17/17 01:25 Dose: 2 mg Morphine Sulfate (Morphine Ir) 15 mg GT Q6H PRN PRN Reason: MOD/SEVERE PAIN Stop: 12/12/17 13:45 Pantoprazole Sodium (Protonix) 40 mg IVP DAILY [facility] Stop: 12/14/17 08:59 Last Admin: 10/17/17 08:26 Dose: 40 mg Potassium Chloride (Potassium Chloride Elixir) 20 meq GT DAILY [facility] Stop: 12/16/17 18:29 Lab - Result Diagrams 10/19/17 04:15 10/19/17 04:15 Na stable @ 132 K up to 4.1 CXR still w/ B/L infiltrates, pulm edema DC IVF due to CHF on CXR, elevated BNP f/u electrolytes ave UOP > 2L Nutritional Asmnt/Malnutr-PDOC - Dietary Evaluation Malnutrition Findings (Please click <Entered> for more info): Nutritional Asmnt/Malnutrition Start: 10/13/17 15: 20 Text: Status: Complete Freq: Protocol: Document 10/13/17 15:21 KATHIEG (Rec: 10/13/17 15:42 [email or web address] [id number]) Nutritional Asmnt/Malnutrition Patient General Information Nutritional Screening High Risk Diagnosis hyponatremia, J tube placement Pertinent Medical Hx/Surgical Hx CVA/TIA, ESRD, dementia, PEG/ Gtube, trach Subjective Information Pt seen on vent via trach. Per RN, no nutrition plan at this time from MD. pt is on NPO status. Current Diet Order/ Nutrition Support no diet order. Pertinent Medications vit C, Iron, piperacillin, nacl 0.9%, vancomycin Pertinent Labs 6/5 Na 129, cl 89, Cr 0.4 Nutritional Hx/Data Height 1.6 m Height (Calculated Centimeters) 160.0 Current Weight (lbs) 50.349 kg Weight (Calculated Kilograms) 50.3 Weight (Calculated Grams) 64273.8 [place] Body Weight 115 Body Mass Index (BMI) 19.6 Weight Status Approriate GI Symptoms GI Symptoms None Last BM not indicated Difficult in: None Skin Integrity/Comment: intact Estimated Nutritional Goals BEE in Kcals: Using Current wt Calories/Kcals/Kg 25-30 Kcals Calculated 5268-7297 Protein: Using Current wt Protein g/k-1.2 Protein Calculated 50-60 Fluid: ml 1250-1500ml (1ml/kcal) Nutritional Problem 2. Problem Problem inadequate energy intake Etiology J tube malfunction Signs/Symptoms: nutrition support not initiated 1. Problem Problem altered nutrition labs Etiology electrolytes imbalance Signs/Symptoms: Na 129 Malnutrition Alert Is there a minimum of two criteria No selected? Query Text:Check all the applicable criteria. A minimum of two criteria are recommended for diagnosis of either severe or non-severe malnutrition. Malnutrition Related to Morbid Obesity Malnutrition related to morbid obesity No Intervention/Recommendation Comments 1. Monitor NPO status 2. If TF needed, recommend Fibersource HN 55m/hr x 20hr. This will provide 1320kcal, 59g protein, 891ml free water. 3. Monitor wt, skin integrity and labs 4. F/U as high risk in 2 days, 6/7 Expected Outcomes/Goals Expected Outcomes/Goals 1. Pt to meet at least 75% of nutritional needs. 2. Wt stability, skin to remain intact, labs to approach WNL.
--- NOTE | 2017-10-19 15:01 | General Progress Note ---
Subjective - Review of Systems Service Date: 10/19/17 Subjective: patient awake ] no distress denies cp sob Objective - Results Result Diagrams: 10/19/17 04:15 10/19/17 04:15 Recent Labs: Laboratory Last Values WBC 7.4 Th/cmm (4.8-10.8) 10/19/17 04:15 RBC 3.64 Mil/cmm (3.80-5.20) L 10/19/17 04:15 Hgb 9.9 gm/dL (12-16) L 10/19/17 04:15 Hct 29.9 % (41.0-60) L 10/19/17 04:15 MCV 82.1 fl (81-100) 10/19/17 04:15 MCH 27.3 pg (27.0-31.0) 10/19/17 04:15 MCHC Differential 33.3 pg (28.0-36.0) 10/19/17 04:15 RDW 19.7 % (11.5-20.0) 10/19/17 04:15 Plt Count 441 Th/cmm (150-400) H 10/19/17 04:15 MPV 8.2 fl 10/19/17 04:15 Neutrophils % 53.1 % (40.0-80.0) 10/19/17 04:15 Lymphocytes % 31.0 % (20.0-50.0) 10/19/17 04:15 Monocytes % 10.7 % (2.0-10.0) H 10/19/17 04:15 Eosinophils % 4.6 % (0.0-5.0) 10/19/17 04:15 Basophils % 0.6 % (0.0-2.0) 10/19/17 04:15 Sodium 132 mEq/L (136-145) L 10/19/17 04:15 Potassium 4.1 mEq/L (3.5-5.1) 10/19/17 04:15 Chloride 102 mEq/L (98-107) 10/19/17 04:15 Carbon Dioxide 25.2 mEq/L (21.0-31.0) 10/19/17 04:15 Anion Gap 8.9 (7.0-16.0) 10/19/17 04:15 BUN 8 mg/dL (7-25) 10/19/17 04:15 Creatinine 0.5 mg/dL (0.6-1.2) L 10/19/17 04:15 Est GFR ( Amer) TNP 10/19/17 04:15 Est GFR (Non-Af Amer) TNP 10/19/17 04:15 BUN/Creatinine Ratio 16.0 10/19/17 04:15 Glucose 95 mg/dL (70-105) 10/19/17 04:15 POC Glucose 106 MG/DL (70 - 105) H 10/13/17 09:54 Whole Bld Lactic Acid 1.49 mmol/L (0.60-1.99) 10/13/17 09:35 Calcium 8.8 mg/dL (8.6-10.3) 10/19/17 04:15 Magnesium 1.9 mg/dL (1.9-2.7) 10/17/17 04:30 Total Bilirubin 0.6 mg/dL (0.3-1.0) 10/14/17 04:20 AST 15 U/L (13-39) 10/14/17 04:20 ALT 9 U/L (7-52) 10/14/17 04:20 Alkaline Phosphatase 91 U/L (34-104) 10/14/17 04:20 B-Natriuretic Peptide 429.0 pg/mL (5.0-100.0) H 10/17/17 04:30 Total Protein 7.7 gm/dL (6.0-8.3) 10/14/17 04:20 Albumin 2.5 gm/dL (3.7-5.3) L 10/14/17 04:20 Globulin 5.2 gm/dL 10/14/17 04:20 Albumin/Globulin Ratio 0.5 (1.0-1.8) L 10/14/17 04:20 Urine Source ECHOLS PORT 10/16/17 16:35 Urine Color YELLOW 10/16/17 16:35 Urine Clarity SLIGHTLY HAZY (CLEAR) 10/16/17 16:35 Urine pH 7.5 (4.6 - 8.0) 10/16/17 16:35 Ur Specific [place] 1.015 (1.005-1.030) 10/16/17 16:35 Urine Protein 30 mg/dL (NEGATIVE) H 10/16/17 16:35 Urine Glucose (UA) NEGATIVE mg/dL (NEGATIVE) 10/16/17 16:35 Urine Ketones NEGATIVE mg/dL (NEGATIVE) 10/16/17 16:35 Urine Blood TRACE (NEGATIVE) 10/16/17 16:35 Urine Nitrate NEGATIVE (NEGATIVE) 10/16/17 16:35 Urine Bilirubin NEGATIVE (NEGATIVE) 10/16/17 16:35 Urine Urobilinogen 1.0 E.U./dL (0.2 - 1.0) 10/16/17 16:35 Ur Leukocyte Esterase NEGATIVE (NEGATIVE) 10/16/17 16:35 Urine RBC 5-10 /hpf (0-5) H 10/16/17 16:35 Urine WBC 6-10 /hpf (0-5) H 10/16/17 16:35 Ur Epithelial Cells RARE /lpf (FEW) 10/16/17 16:35 Urine Bacteria FEW /hpf (NONE SEEN) 10/16/17 16:35 Ur Random Potassium 27.0 mmol/L 10/17/17 18:00 Urine Collection Time 24 hours 10/17/17 18:00 Urine Total Volume 1750 ml 10/17/17 18:00 Ur Potassium 24 Hour 47.3 mmol/24h (25.0-125.0) 10/17/17 18:00 Stool Occult Blood NEGATIVE (NEGATIVE) 10/17/17 04:20 Vancomycin Trough 14.4 ug/mL (5-10) H 10/18/17 08:20 Blood Type O POSITIVE 10/16/17 06:30 Antibody Screen NEGATIVE 10/16/17 06:30 Crossmatch See Detail 10/16/17 06:30 - Physical Exam Vitals and I&O: Vital Signs Temp 96.9 F 10/19/17 12:00 Pulse 83 10/19/17 14:44 Resp 20 10/19/17 14:00 BP 92/54 10/19/17 14:00 Pulse Ox 98 10/19/17 14:44 Intake & Output 10/18/17 10/19/17 10/19/17 18:59 06:59 18:59 Intake Total 350 1350 250 Output Total 900 Balance 350 450 250 Weight (lbs) 61.054 kg Intake: Intake, IV Amount 350 350 250 Piperacillin Sodium/ 100 100 Tazobact 3.375 gm In Sodium Chloride 0.9% 50 ml @ 100 mls/hr IV Q8HR [facility] Rx#:[id number] Vancomycin HCl 1 gm In 250 250 250 Sodium Chloride 0.9% 250 ml @ 165 mls/hr IV Q12H [facility] Rx#:[id number] Tube Feeding 700 Other 300 Output: Urine 900 Other: # Bowel Movements 0 Weight Source Bedscale Active Medications: Current Medications Acetaminophen (Tylenol 650mg/20.3ml Suspension) 650 mg GT Q4HR PRN PRN Reason: Mild Pain or Fever >101 Stop: 12/12/17 13:45 Last Admin: 10/13/17 17:59 Dose: 650 mg Albuterol Sulfate (Albuterol 2.5mg/3ml Neb Ud) 2.5 mg HHN Q3H PRN PRN Reason: SOB/WHEEZING/RESPIRATORY DISTR Stop: 12/12/17 13:45 Albuterol Sulfate (Albuterol 2.5mg/3ml Neb Ud) 2.5 mg HHN Q4HRT [facility] Stop: 12/12/17 18:59 Last Admin: 10/19/17 14:44 Dose: 2.5 mg Ascorbic Acid (Vitamin C) 500 mg PO DAILY [facility] Stop: 12/13/17 08:59 Last Admin: 10/19/17 08:33 Dose: 500 mg Chlorhexidine Gluconate (Peridex) 15 ml MM 0800,1999 [facility] Stop: 12/12/17 19:59 Last Admin: 10/19/17 08:32 Dose: 15 ml Dextrose (D50w) 50 ml IVP PRN PRN PRN Reason: B.S > 60 MG/DL Stop: 12/12/17 08:04 Enalaprilat (Vasotec) 1.25 mg IVP Q4HR PRN PRN Reason: SBP ABOVE 160 MMHG Stop: 12/12/17 08:58 Last Admin: 10/13/17 09:30 Dose: 1.25 mg Ferrous Sulfate (Iron) 450 mg GT DAILY [facility] Stop: 12/13/17 08:59 Last Admin: 10/19/17 08:32 Dose: 450 mg Piperacillin Sod/Tazobactam (Sod 3.375 gm/ Sodium Chloride) 50 mls @ 100 mls/ hr IV Q8HR [facility] Stop: 12/12/17 08:01 Last Admin: 10/19/17 13:15 Dose: 100 mls/hr Vancomycin HCl 1 gm/ Sodium (Chloride) 250 mls @ 165 mls/hr IV Q12H [facility] Stop: 12/17/17 09:59 Last Infusion: 10/19/17 11:55 Dose: Infused Lactobacillus Rhamnosus (Culturelle 15b) 1 each PO DAILY [facility] Stop: 12/13/17 13:59 Last Admin: 10/19/17 08:33 Dose: 1 each Levetiracetam (Keppra) 250 mg PO Q12H [facility] Stop: 12/12/17 13:59 Last Admin: 10/19/17 13:15 Dose: 250 mg Lorazepam (Ativan) 0.5 mg GT Q6H PRN; Protocol PRN Reason: Anxiety Stop: 12/12/17 13:45 Miscellaneous (Vancomycin Iv Per Pharmacy) 1 [facility] PRN PRN PRN Reason: PROTOCOL Stop: 12/12/17 08:00 Miscellaneous (Vte Chemical Prophylaxis Screen/ Admission) 1 [facility] PRN PRN PRN Reason: PROTOCOL Stop: 12/13/17 10:44 Miscellaneous (Probiotic Screen) 1 [facility] PRN PRN PRN Reason: PROTOCOL Stop: 12/13/17 12:03 Morphine Sulfate (Morphine) 1 mg IVP Q4HR PRN PRN Reason: Pain (Moderate) Stop: 12/12/17 09:34 Last Admin: 10/19/17 13:15 Dose: 1 mg Morphine Sulfate (Morphine) 2 mg IVP Q4HR PRN PRN Reason: Pain (Severe) Stop: 12/12/17 09:35 Last Admin: 10/19/17 04:39 Dose: 2 mg Morphine Sulfate (Morphine Ir) 15 mg GT Q6H PRN PRN Reason: MOD/SEVERE PAIN Stop: 12/12/17 13:45 Pantoprazole Sodium (Protonix) 40 mg IVP DAILY [facility] Stop: 12/14/17 08:59 Last Admin: 10/19/17 08:33 Dose: 40 mg Potassium Chloride (Potassium Chloride Elixir) 20 meq GT DAILY [facility] Stop: 12/16/17 18:29 Last Admin: 10/19/17 08:33 Dose: 20 meq General: Alert, Moderate distress, Other (Evidence of R craniotomy), no No acute distress, no Severe distress HEENT: Atraumatic, Mucous membr. moist/pink, Other (evidence of skull/brain surgery with major defect) Neck: Supple, +2 carotid pulse wo bruit Cardiovascular: Regular rate, Normal S1, Normal S2 Lungs: Other (rhonchi, few congestion) Abdomen: Bowel sounds, Soft, no Tender, no Hepatomegaly, no Splenomegaly, no Distended, no Rebound Extremities: no Edema Neurological: Sensation intact Skin: no Rash Psych/Mental Status: Mood NL - Procedures Procedures: Procedures Procedure Code Date RESPIRATORY VENTILATION, GREATER THAN 96 CONSECUTIVE HOURS [id number] 10/13/17 TRANSFUSE NONAUT RED BLOOD CELLS IN PERIPH VEIN, PERC 62710V5 10/13/17 Assessment/Plan - Assessment Assessment: gt malfunction hx cvs vdrf respiratory failure pvs - Plan Plan: monitor vitals cmp Nutritional Asmnt/Malnutr-PDOC - Dietary Evaluation Malnutrition Findings (Please click <Entered> for more info): Nutritional Asmnt/Malnutrition Start: 10/13/17 15: 20 Text: Status: Complete Freq: Protocol: Document 10/13/17 15:21 KATHIEG (Rec: 10/13/17 15:42 LCATIF [place] [id number]) Nutritional Asmnt/Malnutrition Patient General Information Nutritional Screening High Risk Diagnosis hyponatremia, J tube placement Pertinent Medical Hx/Surgical Hx CVA/TIA, ESRD, dementia, PEG/ Gtube, trach Subjective Information Pt seen on vent via trach. Per RN, no nutrition plan at this time from MD. pt is on NPO status. Current Diet Order/ Nutrition Support no diet order. Pertinent Medications vit C, Iron, piperacillin, nacl 0.9%, vancomycin Pertinent Labs 6/5 Na 129, cl 89, Cr 0.4 Nutritional Hx/Data Height 1.6 m Height (Calculated Centimeters) 160.0 Current Weight (lbs) 50.349 kg Weight (Calculated Kilograms) 50.3 Weight (Calculated Grams) 56688.8 Vincent Body Weight 115 Body Mass Index (BMI) 19.6 Weight Status Approriate GI Symptoms GI Symptoms None Last BM not indicated Difficult in: None Skin Integrity/Comment: intact Estimated Nutritional Goals BEE in Kcals: Using Current wt Calories/Kcals/Kg 25-30 Kcals Calculated 9187-0917 Protein: Using Current wt Protein g/k-1.2 Protein Calculated 50-60 Fluid: ml 1250-1500ml (1ml/kcal) Nutritional Problem 2. Problem Problem inadequate energy intake Etiology J tube malfunction Signs/Symptoms: nutrition support not initiated 1. Problem Problem altered nutrition labs Etiology electrolytes imbalance Signs/Symptoms: Na 129 Malnutrition Alert Is there a minimum of two criteria No selected? Query Text:Check all the applicable criteria. A minimum of two criteria are recommended for diagnosis of either severe or non-severe malnutrition. Malnutrition Related to Morbid Obesity Malnutrition related to morbid obesity No Intervention/Recommendation Comments 1. Monitor NPO status 2. If TF needed, recommend Fibersource HN 55m/hr x 20hr. This will provide 1320kcal, 59g protein, 891ml free water. 3. Monitor wt, skin integrity and labs 4. F/U as high risk in 2 days, 6/7 Expected Outcomes/Goals Expected Outcomes/Goals 1. Pt to meet at least 75% of nutritional needs. 2. Wt stability, skin to remain intact, labs to approach WNL.
--- NOTE | 2017-10-19 15:16 | Infectious Disease Prog Note ---
Infectious Disease Subjective - Review of Systems Service Date: 10/19/17 Subjective: There is no new change, no fever. Infectious Disease Objective - Results Result Diagrams: 10/19/17 04:15 10/19/17 04:15 Recent Labs: Laboratory Last Values WBC 7.4 Th/cmm (4.8-10.8) 10/19/17 04:15 RBC 3.64 Mil/cmm (3.80-5.20) L 10/19/17 04:15 Hgb 9.9 gm/dL (12-16) L 10/19/17 04:15 Hct 29.9 % (41.0-60) L 10/19/17 04:15 MCV 82.1 fl (81-100) 10/19/17 04:15 MCH 27.3 pg (27.0-31.0) 10/19/17 04:15 MCHC Differential 33.3 pg (28.0-36.0) 10/19/17 04:15 RDW 19.7 % (11.5-20.0) 10/19/17 04:15 Plt Count 441 Th/cmm (150-400) H 10/19/17 04:15 MPV 8.2 fl 10/19/17 04:15 Neutrophils % 53.1 % (40.0-80.0) 10/19/17 04:15 Lymphocytes % 31.0 % (20.0-50.0) 10/19/17 04:15 Monocytes % 10.7 % (2.0-10.0) H 10/19/17 04:15 Eosinophils % 4.6 % (0.0-5.0) 10/19/17 04:15 Basophils % 0.6 % (0.0-2.0) 10/19/17 04:15 Sodium 132 mEq/L (136-145) L 10/19/17 04:15 Potassium 4.1 mEq/L (3.5-5.1) 10/19/17 04:15 Chloride 102 mEq/L (98-107) 10/19/17 04:15 Carbon Dioxide 25.2 mEq/L (21.0-31.0) 10/19/17 04:15 Anion Gap 8.9 (7.0-16.0) 10/19/17 04:15 BUN 8 mg/dL (7-25) 10/19/17 04:15 Creatinine 0.5 mg/dL (0.6-1.2) L 10/19/17 04:15 Est GFR ( Amer) TNP 10/19/17 04:15 Est GFR (Non-Af Amer) TNP 10/19/17 04:15 BUN/Creatinine Ratio 16.0 10/19/17 04:15 Glucose 95 mg/dL (70-105) 10/19/17 04:15 POC Glucose 106 MG/DL (70 - 105) H 10/13/17 09:54 Whole Bld Lactic Acid 1.49 mmol/L (0.60-1.99) 10/13/17 09:35 Calcium 8.8 mg/dL (8.6-10.3) 10/19/17 04:15 Magnesium 1.9 mg/dL (1.9-2.7) 10/17/17 04:30 Total Bilirubin 0.6 mg/dL (0.3-1.0) 10/14/17 04:20 AST 15 U/L (13-39) 10/14/17 04:20 ALT 9 U/L (7-52) 10/14/17 04:20 Alkaline Phosphatase 91 U/L (34-104) 10/14/17 04:20 B-Natriuretic Peptide 429.0 pg/mL (5.0-100.0) H 10/17/17 04:30 Total Protein 7.7 gm/dL (6.0-8.3) 10/14/17 04:20 Albumin 2.5 gm/dL (3.7-5.3) L 10/14/17 04:20 Globulin 5.2 gm/dL 10/14/17 04:20 Albumin/Globulin Ratio 0.5 (1.0-1.8) L 10/14/17 04:20 Urine Source ECHOLS PORT 10/16/17 16:35 Urine Color YELLOW 10/16/17 16:35 Urine Clarity SLIGHTLY HAZY (CLEAR) 10/16/17 16:35 Urine pH 7.5 (4.6 - 8.0) 10/16/17 16:35 Ur Specific [place] 1.015 (1.005-1.030) 10/16/17 16:35 Urine Protein 30 mg/dL (NEGATIVE) H 10/16/17 16:35 Urine Glucose (UA) NEGATIVE mg/dL (NEGATIVE) 10/16/17 16:35 Urine Ketones NEGATIVE mg/dL (NEGATIVE) 10/16/17 16:35 Urine Blood TRACE (NEGATIVE) 10/16/17 16:35 Urine Nitrate NEGATIVE (NEGATIVE) 10/16/17 16:35 Urine Bilirubin NEGATIVE (NEGATIVE) 10/16/17 16:35 Urine Urobilinogen 1.0 E.U./dL (0.2 - 1.0) 10/16/17 16:35 Ur Leukocyte Esterase NEGATIVE (NEGATIVE) 10/16/17 16:35 Urine RBC 5-10 /hpf (0-5) H 10/16/17 16:35 Urine WBC 6-10 /hpf (0-5) H 10/16/17 16:35 Ur Epithelial Cells RARE /lpf (FEW) 10/16/17 16:35 Urine Bacteria FEW /hpf (NONE SEEN) 10/16/17 16:35 Ur Random Potassium 27.0 mmol/L 10/17/17 18:00 Urine Collection Time 24 hours 10/17/17 18:00 Urine Total Volume 1750 ml 10/17/17 18:00 Ur Potassium 24 Hour 47.3 mmol/24h (25.0-125.0) 10/17/17 18:00 Stool Occult Blood NEGATIVE (NEGATIVE) 10/17/17 04:20 Vancomycin Trough 14.4 ug/mL (5-10) H 10/18/17 08:20 Blood Type O POSITIVE 10/16/17 06:30 Antibody Screen NEGATIVE 10/16/17 06:30 Crossmatch See Detail 10/16/17 06:30 - Physical Exam Vitals and I&O: Vital Signs Temp 96.9 F 10/19/17 12:00 Pulse 83 10/19/17 14:44 Resp 20 10/19/17 14:00 BP 92/54 10/19/17 14:00 Pulse Ox 98 10/19/17 14:44 Intake & Output 10/18/17 10/19/17 10/19/17 18:59 06:59 18:59 Intake Total 350 1350 250 Output Total 900 Balance 350 450 250 Weight (lbs) 61.054 kg Intake: Intake, IV Amount 350 350 250 Piperacillin Sodium/ 100 100 Tazobact 3.375 gm In Sodium Chloride 0.9% 50 ml @ 100 mls/hr IV Q8HR [facility] Rx#:[id number] Vancomycin HCl 1 gm In 250 250 250 Sodium Chloride 0.9% 250 ml @ 165 mls/hr IV Q12H [facility] Rx#:[id number] Tube Feeding 700 Other 300 Output: Urine 900 Other: # Bowel Movements 0 Weight Source Bedscale Active Medications: Current Medications Acetaminophen (Tylenol 650mg/20.3ml Suspension) 650 mg GT Q4HR PRN PRN Reason: Mild Pain or Fever >101 Stop: 12/12/17 13:45 Last Admin: 10/13/17 17:59 Dose: 650 mg Albuterol Sulfate (Albuterol 2.5mg/3ml Neb Ud) 2.5 mg HHN Q3H PRN PRN Reason: SOB/WHEEZING/RESPIRATORY DISTR Stop: 12/12/17 13:45 Albuterol Sulfate (Albuterol 2.5mg/3ml Neb Ud) 2.5 mg HHN Q4HRT [facility] Stop: 12/12/17 18:59 Last Admin: 10/19/17 14:44 Dose: 2.5 mg Ascorbic Acid (Vitamin C) 500 mg PO DAILY [facility] Stop: 12/13/17 08:59 Last Admin: 10/19/17 08:33 Dose: 500 mg Chlorhexidine Gluconate (Peridex) 15 ml MM 0800,1999 [facility] Stop: 12/12/17 19:59 Last Admin: 10/19/17 08:32 Dose: 15 ml Dextrose (D50w) 50 ml IVP PRN PRN PRN Reason: B.S > 60 MG/DL Stop: 12/12/17 08:04 Enalaprilat (Vasotec) 1.25 mg IVP Q4HR PRN PRN Reason: SBP ABOVE 160 MMHG Stop: 12/12/17 08:58 Last Admin: 10/13/17 09:30 Dose: 1.25 mg Ferrous Sulfate (Iron) 450 mg GT DAILY [facility] Stop: 12/13/17 08:59 Last Admin: 10/19/17 08:32 Dose: 450 mg Piperacillin Sod/Tazobactam (Sod 3.375 gm/ Sodium Chloride) 50 mls @ 100 mls/ hr IV Q8HR [facility] Stop: 12/12/17 08:01 Last Admin: 10/19/17 13:15 Dose: 100 mls/hr Vancomycin HCl 1 gm/ Sodium (Chloride) 250 mls @ 165 mls/hr IV Q12H [facility] Stop: 12/17/17 09:59 Last Infusion: 10/19/17 11:55 Dose: Infused Lactobacillus Rhamnosus (Culturelle 15b) 1 each PO DAILY [facility] Stop: 12/13/17 13:59 Last Admin: 10/19/17 08:33 Dose: 1 each Levetiracetam (Keppra) 250 mg PO Q12H [facility] Stop: 12/12/17 13:59 Last Admin: 10/19/17 13:15 Dose: 250 mg Lorazepam (Ativan) 0.5 mg GT Q6H PRN; Protocol PRN Reason: Anxiety Stop: 12/12/17 13:45 Miscellaneous (Vancomycin Iv Per Pharmacy) 1 [facility] PRN PRN PRN Reason: PROTOCOL Stop: 12/12/17 08:00 Miscellaneous (Vte Chemical Prophylaxis Screen/ Admission) 1 [facility] PRN PRN PRN Reason: PROTOCOL Stop: 12/13/17 10:44 Miscellaneous (Probiotic Screen) 1 [facility] PRN PRN PRN Reason: PROTOCOL Stop: 12/13/17 12:03 Morphine Sulfate (Morphine) 1 mg IVP Q4HR PRN PRN Reason: Pain (Moderate) Stop: 12/12/17 09:34 Last Admin: 10/19/17 13:15 Dose: 1 mg Morphine Sulfate (Morphine) 2 mg IVP Q4HR PRN PRN Reason: Pain (Severe) Stop: 12/12/17 09:35 Last Admin: 10/19/17 04:39 Dose: 2 mg Morphine Sulfate (Morphine Ir) 15 mg GT Q6H PRN PRN Reason: MOD/SEVERE PAIN Stop: 12/12/17 13:45 Pantoprazole Sodium (Protonix) 40 mg IVP DAILY [facility] Stop: 12/14/17 08:59 Last Admin: 10/19/17 08:33 Dose: 40 mg Potassium Chloride (Potassium Chloride Elixir) 20 meq GT DAILY [facility] Stop: 12/16/17 18:29 Last Admin: 10/19/17 08:33 Dose: 20 meq General: no acute distress, cachectic, other (s/p trach on the ventilator support.) HEENT: PERRLA, EOMI, other (depressed scalp with concavity, ) Neck: supple, tracheostomy Cardiovascular: S1S2, regular Lungs: clear to auscultation bilaterally, clear to percussion Abdomen: soft, no tender, no distended Extremities: no cyanosis, no clubbing, no edema Neurological: alert - Procedures Procedures: Procedures Procedure Code Date RESPIRATORY VENTILATION, GREATER THAN 96 CONSECUTIVE HOURS [id number] 10/13/17 TRANSFUSE NONAUT RED BLOOD CELLS IN PERIPH VEIN, PERC 17108A7 10/13/17 Infectious Disease Assmt/Plan - Assessment Assessment: 1. Pneumonia. 2. G-tube malfunction. 3. New J-tube placement. 4. Vent dependent respiratory failure. 5. Vegetative status. 6. UTI. ESBl Klebsiella. - Plan Plan: CPM. Antibiotics: Meropenem day #3 of 10 Nutritional Asmnt/Malnutr-PDOC - Dietary Evaluation Malnutrition Findings (Please click <Entered> for more info): Nutritional Asmnt/Malnutrition Start: 10/13/17 15: 20 Text: Status: Complete Freq: Protocol: Document 10/13/17 15:21 [email or web address] (Rec: 10/13/17 15:42 GALE [email or web address]) Nutritional Asmnt/Malnutrition Patient General Information Nutritional Screening High Risk Diagnosis hyponatremia, J tube placement Pertinent Medical Hx/Surgical Hx CVA/TIA, ESRD, dementia, PEG/ Gtube, trach Subjective Information Pt seen on vent via trach. Per RN, no nutrition plan at this time from . pt is on NPO status. Current Diet Order/ Nutrition Support no diet order. Pertinent Medications vit C, Iron, piperacillin, nacl 0.9%, vancomycin Pertinent Labs /5 Na 129, cl 89, Cr 0.4 Nutritional Hx/Data Height 1.6 m Height (Calculated Centimeters) 160.0 Current Weight (lbs) 50.349 kg Weight (Calculated Kilograms) 50.3 Weight (Calculated Grams) 58649.8 [place] Body Weight 115 Body Mass Index (BMI) 19.6 Weight Status Approriate GI Symptoms GI Symptoms None Last BM not indicated Difficult in: None Skin Integrity/Comment: intact Estimated Nutritional Goals BEE in Kcals: Using Current wt Calories/Kcals/Kg 25-30 Kcals Calculated 2140-1604 Protein: Using Current wt Protein g/k-1.2 Protein Calculated 50-60 Fluid: ml 1250-1500ml (1ml/kcal) Nutritional Problem 2. Problem Problem inadequate energy intake Etiology J tube malfunction Signs/Symptoms: nutrition support not initiated 1. Problem Problem altered nutrition labs Etiology electrolytes imbalance Signs/Symptoms: Na 129 Malnutrition Alert Is there a minimum of two criteria No selected? Query Text:Check all the applicable criteria. A minimum of two criteria are recommended for diagnosis of either severe or non-severe malnutrition. Malnutrition Related to Morbid Obesity Malnutrition related to morbid obesity No Intervention/Recommendation Comments 1. Monitor NPO status 2. If TF needed, recommend Fibersource HN 55m/hr x 20hr. This will provide 1320kcal, 59g protein, 891ml free water. 3. Monitor wt, skin integrity and labs 4. F/U as high risk in 2 days, 6/7 Expected Outcomes/Goals Expected Outcomes/Goals 1. Pt to meet at least 75% of nutritional needs. 2. Wt stability, skin to remain intact, labs to approach WNL.
[2017-10-19] MEDS ORDERED: Meropenem 500 MG in Sodium Chloride 0.9% 100 ML IV SCH (15:45)
--- NOTE | 2017-10-20 22:34 | Infectious Disease Prog Note ---
Infectious Disease Subjective - Review of Systems Service Date: 10/19/17 Subjective: There is no new change, no fever. Infectious Disease Objective - Results Result Diagrams: 10/19/17 04:15 10/19/17 04:15 Recent Labs: Laboratory Last Values WBC 7.4 Th/cmm (4.8-10.8) 10/19/17 04:15 RBC 3.64 Mil/cmm (3.80-5.20) L 10/19/17 04:15 Hgb 9.9 gm/dL (12-16) L 10/19/17 04:15 Hct 29.9 % (41.0-60) L 10/19/17 04:15 MCV 82.1 fl (81-100) 10/19/17 04:15 MCH 27.3 pg (27.0-31.0) 10/19/17 04:15 MCHC Differential 33.3 pg (28.0-36.0) 10/19/17 04:15 RDW 19.7 % (11.5-20.0) 10/19/17 04:15 Plt Count 441 Th/cmm (150-400) H 10/19/17 04:15 MPV 8.2 fl 10/19/17 04:15 Neutrophils % 53.1 % (40.0-80.0) 10/19/17 04:15 Lymphocytes % 31.0 % (20.0-50.0) 10/19/17 04:15 Monocytes % 10.7 % (2.0-10.0) H 10/19/17 04:15 Eosinophils % 4.6 % (0.0-5.0) 10/19/17 04:15 Basophils % 0.6 % (0.0-2.0) 10/19/17 04:15 Sodium 132 mEq/L (136-145) L 10/19/17 04:15 Potassium 4.1 mEq/L (3.5-5.1) 10/19/17 04:15 Chloride 102 mEq/L (98-107) 10/19/17 04:15 Carbon Dioxide 25.2 mEq/L (21.0-31.0) 10/19/17 04:15 Anion Gap 8.9 (7.0-16.0) 10/19/17 04:15 BUN 8 mg/dL (7-25) 10/19/17 04:15 Creatinine 0.5 mg/dL (0.6-1.2) L 10/19/17 04:15 Est GFR ( Amer) TNP 10/19/17 04:15 Est GFR (Non-Af Amer) TNP 10/19/17 04:15 BUN/Creatinine Ratio 16.0 10/19/17 04:15 Glucose 95 mg/dL (70-105) 10/19/17 04:15 POC Glucose 106 MG/DL (70 - 105) H 10/13/17 09:54 Whole Bld Lactic Acid 1.49 mmol/L (0.60-1.99) 10/13/17 09:35 Calcium 8.8 mg/dL (8.6-10.3) 10/19/17 04:15 Magnesium 1.9 mg/dL (1.9-2.7) 10/17/17 04:30 Total Bilirubin 0.6 mg/dL (0.3-1.0) 10/14/17 04:20 AST 15 U/L (13-39) 10/14/17 04:20 ALT 9 U/L (7-52) 10/14/17 04:20 Alkaline Phosphatase 91 U/L (34-104) 10/14/17 04:20 B-Natriuretic Peptide 429.0 pg/mL (5.0-100.0) H 10/17/17 04:30 Total Protein 7.7 gm/dL (6.0-8.3) 10/14/17 04:20 Albumin 2.5 gm/dL (3.7-5.3) L 10/14/17 04:20 Globulin 5.2 gm/dL 10/14/17 04:20 Albumin/Globulin Ratio 0.5 (1.0-1.8) L 10/14/17 04:20 Urine Source ECHOLS PORT 10/16/17 16:35 Urine Color YELLOW 10/16/17 16:35 Urine Clarity SLIGHTLY HAZY (CLEAR) 10/16/17 16:35 Urine pH 7.5 (4.6 - 8.0) 10/16/17 16:35 Ur Specific [place] 1.015 (1.005-1.030) 10/16/17 16:35 Urine Protein 30 mg/dL (NEGATIVE) H 10/16/17 16:35 Urine Glucose (UA) NEGATIVE mg/dL (NEGATIVE) 10/16/17 16:35 Urine Ketones NEGATIVE mg/dL (NEGATIVE) 10/16/17 16:35 Urine Blood TRACE (NEGATIVE) 10/16/17 16:35 Urine Nitrate NEGATIVE (NEGATIVE) 10/16/17 16:35 Urine Bilirubin NEGATIVE (NEGATIVE) 10/16/17 16:35 Urine Urobilinogen 1.0 E.U./dL (0.2 - 1.0) 10/16/17 16:35 Ur Leukocyte Esterase NEGATIVE (NEGATIVE) 10/16/17 16:35 Urine RBC 5-10 /hpf (0-5) H 10/16/17 16:35 Urine WBC 6-10 /hpf (0-5) H 10/16/17 16:35 Ur Epithelial Cells RARE /lpf (FEW) 10/16/17 16:35 Urine Bacteria FEW /hpf (NONE SEEN) 10/16/17 16:35 Ur Random Potassium 27.0 mmol/L 10/17/17 18:00 Urine Collection Time 24 hours 10/17/17 18:00 Urine Total Volume 1750 ml 10/17/17 18:00 Ur Potassium 24 Hour 47.3 mmol/24h (25.0-125.0) 10/17/17 18:00 Stool Occult Blood NEGATIVE (NEGATIVE) 10/17/17 04:20 Vancomycin Trough 14.4 ug/mL (5-10) H 10/18/17 08:20 Blood Type O POSITIVE 10/16/17 06:30 Antibody Screen NEGATIVE 10/16/17 06:30 Crossmatch See Detail 10/16/17 06:30 - Physical Exam Vitals and I&O: Vital Signs Temp 99.1 F 10/19/17 20:00 Pulse 96 10/19/17 22:31 Resp 22 10/19/17 22:00 BP 139/69 10/19/17 22:00 Pulse Ox 99 10/19/17 22:31 Intake & Output 10/20/17 10/20/17 10/21/17 06:59 18:59 06:59 Intake Total 200 Output Total 400 Balance -200 Weight (lbs) 60.781 kg Intake: Tube Feeding 200 Output: Urine 400 Other: Weight Source Bedscale General: no acute distress, cachectic HEENT: PERRLA, EOMI, other (concavity of the scalp) Neck: supple, no thyromegaly Cardiovascular: S1S2, regular Lungs: clear to auscultation bilaterally, clear to percussion Abdomen: soft, no tender, no distended Extremities: no cyanosis, no clubbing, no edema Neurological: awake, alert, oriented Skin: intact - Procedures Procedures: Procedures Procedure Code Date CHANGE FEEDING DEVICE IN UP INTEST TRACT, [employer] AP[employer]ACH [id number] 10/13/17 RESPIRATORY VENTILATION, GREATER THAN 96 CONSECUTIVE HOURS [id number] 10/13/17 TRANSFUSE NONAUT RED BLOOD CELLS IN PERIPH VEIN, PERC 01192P4 10/13/17 Infectious Disease Assmt/Plan - Assessment Assessment: 1. Pneumonia. 2. G-tube malfunction. 3. New J-tube placement. 4. Vent dependent respiratory failure. 5. Vegetative status. 6. UTI. ESBl Klebsiella. - Plan Plan: change antibiotics to Invanz for 7 days. Nutritional Asmnt/Malnutr-PDOC - Dietary Evaluation Malnutrition Findings (Please click <Entered> for more info): Nutritional Asmnt/Malnutrition Start: 10/13/17 15: 20 Text: Status: Complete Freq: Protocol: Document 10/13/17 15:21 [email or web address] (Rec: 10/13/17 15:42 HENG [email or web address]) Nutritional Asmnt/Malnutrition Patient General Information Nutritional Screening High Risk Diagnosis hyponatremia, J tube placement Pertinent Medical Hx/Surgical Hx CVA/TIA, ESRD, dementia, PEG/ Gtube, trach Subjective Information Pt seen on vent via trach. Per RN, no nutrition plan at this time from MD. pt is on NPO status. Current Diet Order/ Nutrition Support no diet order. Pertinent Medications vit C, Iron, piperacillin, nacl 0.9%, vancomycin Pertinent Labs 10/13 Na 129, cl 89, Cr 0.4 Nutritional Hx/Data Height 1.6 m Height (Calculated Centimeters) 160.0 Current Weight (lbs) 50.349 kg Weight (Calculated Kilograms) 50.3 Weight (Calculated Grams) 27771.8 [place] Body Weight 115 Body Mass Index (BMI) 19.6 Weight Status Approriate GI Symptoms GI Symptoms None Last BM not indicated Difficult in: None Skin Integrity/Comment: intact Estimated Nutritional Goals BEE in Kcals: Using Current wt Calories/Kcals/Kg 25-30 Kcals Calculated 7558-8360 Protein: Using Current wt Protein g/k-1.2 Protein Calculated 50-60 Fluid: ml 1250-1500ml (1ml/kcal) Nutritional Problem 2. Problem Problem inadequate energy intake Etiology J tube malfunction Signs/Symptoms: nutrition support not initiated 1. Problem Problem altered nutrition labs Etiology electrolytes imbalance Signs/Symptoms: Na 129 Malnutrition Alert Is there a minimum of two criteria No selected? Query Text:Check all the applicable criteria. A minimum of two criteria are recommended for diagnosis of either severe or non-severe malnutrition. Malnutrition Related to Morbid Obesity Malnutrition related to morbid obesity No Intervention/Recommendation Comments 1. Monitor NPO status 2. If TF needed, recommend Fibersource HN 55m/hr x 20hr. This will provide 1320kcal, 59g protein, 891ml free water. 3. Monitor wt, skin integrity and labs 4. F/U as high risk in 2 days, 6/7 Expected Outcomes/Goals Expected Outcomes/Goals 1. Pt to meet at least 75% of nutritional needs. 2. Wt stability, skin to remain intact, labs to approach WNL.
== END 2017-10-19 23:15 | DRG 207 ==
LOC: ER 03:45 → ICU 05:20
PROVIDERS: ADMIT Internal Medicine; ATTEND Internal Medicine
PROC: 5A1955Z Respiratory Ventilation, Greater than 96 Consecutive Hours (ICD-10-PCS; principal; 2017-10-13)
PROC: 0D20XUZ Change Feeding Device in Upper Intestinal Tract, External Approach (ICD-10-PCS; 2017-10-13)
PROC: 30233N1 Transfusion of Nonautologous Red Blood Cells into Peripheral Vein, Percutaneous Approach (ICD-10-PCS; 2017-10-16)
DX: J69.0 Pneumonitis due to inhalation of food and vomit (principal); R53.2 Functional quadriplegia; G93.41 Metabolic encephalopathy; E43 Unspecified severe protein-calorie malnutrition; N18.6 End stage renal disease; K94.23 Gastrostomy malfunction; J95.851 Ventilator associated pneumonia; J96.10 Chronic respiratory failure, unspecified whether with hypoxia or hypercapnia; N39.0 Urinary tract infection, site not specified; E87.1 Hypo-osmolality and hyponatremia; Z99.11 Dependence on respirator [ventilator] status; I13.2 Hypertensive heart and chronic kidney disease with heart failure and with stage 5 chronic kidney disease, or end stage renal disease; E87.6 Hypokalemia; K56.41 Fecal impaction; F03.90 Unspecified dementia, unspecified severity, without behavioral disturbance, psychotic disturbance, mood disturbance, and anxiety; R13.10 Dysphagia, unspecified; S06.9X0A Unspecified intracranial injury without loss of consciousness, initial encounter; D64.9 Anemia, unspecified; I50.9 Heart failure, unspecified; Y83.8 Other surgical procedures as the cause of abnormal reaction of the patient, or of later complication, without mention of misadventure at the time of the procedure; Y92.89 Other specified places as the place of occurrence of the external cause; D63.8 Anemia in other chronic diseases classified elsewhere; B96.1 Klebsiella pneumoniae [K. pneumoniae] as the cause of diseases classified elsewhere; Z16.12 Extended spectrum beta lactamase (ESBL) resistance; Z86.73 Personal history of transient ischemic attack (TIA), and cerebral infarction without residual deficits; Z68.23 Body mass index [BMI] 23.0-23.9, adult
CPT/HCPCS: 36415-UA; 71045-TC; 74000-TC; 80048-TC; 80053-TC; 80202-TC; 81001-TC; 81050-TC; 82270-TC; 82948-90; 83605; 83735-TC; 83880-TC; 84133-TC; 85025-TC; 86850-TC; 86900-TC; 86901-TC; 86922-TC; 87070; 87070-90; 87075-90; 87086-90; 87205-90; 93005; 94002; 94003; 94640; C9113; J1335; J2543; J3370; J3480; J7030; J7040; J7613; P9016; Z7610